=== PATIENT | male | born 1955 | race Caucasian/White ===

== ENCOUNTER → 2018-04-17 11:21 | Outpatient (CLI) | payer BC, SELFPAY ==
[2018-04-17 15:07] LABS: Anion Gap 8 (5-15); BUN 22 mg/dL (7-18); BUN/Creat Ratio 24.3 RATIO (10-20); Calcium,Total 8.8 mg/dL (8.5-10.1); Chloride 104 mmol/L (98-107); EST Glomerular Filtration Rate 91 mL/min (>60); Est Glom Filt Rate - Afr Amer 110 mL/min (>60); Glucose 88 mg/dL (74-106); Potassium 3.8 mmol/L (3.5-5.1); Sodium Level 142 mmol/L (136-145)
== END ==
PROVIDERS: Family Provider Family Medicine; PCP Family Medicine; Visit Provider Family Medicine
DX: I10 Essential (primary) hypertension (principal); I48.91 Unspecified atrial fibrillation
CPT/HCPCS: 36415; 80048

== ENCOUNTER → 2018-06-05 08:54 | Outpatient (CLI) | payer BC, SELFPAY ==
[2018-06-05 10:13] LABS: Anion Gap 6 (5-15); BUN 19 mg/dL (7-18); BUN/Creat Ratio 22.6 RATIO (10-20); Calcium,Total 9.1 mg/dL (8.5-10.1); Chloride 104 mmol/L (98-107); Creatinine, Serum 0.84 mg/dL (0.70-1.30); EST Glomerular Filtration Rate 99 mL/min (>60); Est Glom Filt Rate - Afr Amer 120 mL/min (>60); Glucose 97 mg/dL (74-106); Magnesium 2.3 mg/dL (1.6-2.6); Potassium 3.9 mmol/L (3.5-5.1); Sodium Level 140 mmol/L (136-145)
== END ==
PROVIDERS: Family Provider Family Medicine; PCP Family Medicine; Visit Provider Family Medicine
DX: I48.91 Unspecified atrial fibrillation (principal)
CPT/HCPCS: 36415; 80048; 83735; 93005

== ENCOUNTER → 2018-10-16 10:02 | Outpatient (CLI) | payer BC, SELFPAY ==
[2017-09-20 14:21] VITALS: BMI 33.5
[2018-10-16 12:48] LABS: Anion Gap 8 (5-15); BUN 20 mg/dL (7-18); BUN/Creat Ratio 25.9 RATIO (10-20); Calcium,Total 8.6 mg/dL (8.5-10.1); Chloride 105 mmol/L (98-107); Cholesterol 200 mg/dL (200); Creatinine, Serum 0.77 mg/dL (0.70-1.30); EST Glomerular Filtration Rate 109 mL/min (>60); Est Glom Filt Rate - Afr Amer 132 mL/min (>60); Glucose 85 mg/dL (74-106); High Density Lipoprotein 46 mg/dL; PSA,Total - Annual Screen 0.36 ng/mL (0.00-4.00); Potassium 3.8 mmol/L (3.5-5.1); Sodium Level 140 mmol/L (136-145); Triglycerides 79 mg/dL; Very Low Density Lipoprotein 16 mg/dL (5-40)
== END ==
PROVIDERS: Family Provider Family Medicine; PCP Family Medicine; Referring Provider Family Medicine; Visit Provider Family Medicine
DX: Z00.00 Encounter for general adult medical examination without abnormal findings (principal); Z12.5 Encounter for screening for malignant neoplasm of prostate; I10 Essential (primary) hypertension
CPT/HCPCS: 36415; 80048; 80061; 84153; G0103

== ENCOUNTER → 2019-02-28 | Outpatient (CLI) | payer BC, SELFPAY ==
[2017-09-20 14:21] VITALS: BMI 33.5
--- NOTE | 2019-02-28 09:06 | EKG12_ITS ---
Test Reason : A FIB Blood Pressure : / mmHG Vent. Rate : 056 BPM Atrial Rate : 056 BPM P-R Int : 194 ms QRS Dur : 090 ms QT Int : 422 ms P-R-T Axes : 000 026 035 degrees QTc Int : 407 ms Sinus bradycardia Otherwise normal ECG Confirmed by LEONIDES CHERRY, FIDEL ([id number]), web content editor LISHA BRAVO ([id number]) on 03/03/2019 12:11:08 PM Referred By: OUT DOCTOR Confirmed By:NOAM COYLE MD
[2019-02-28 10:27] LABS: Anion Gap 7 (5-15); BUN 20 mg/dL (7-18); Calcium,Total 8.5 mg/dL (8.5-10.1); Chloride 107 mmol/L (98-107); Creatinine, Serum 0.77 mg/dL (0.70-1.30); EST Glomerular Filtration Rate 109 mL/min (>60); Est Glom Filt Rate - Afr Amer 132 mL/min (>60); Glucose 90 mg/dL (74-106); Magnesium 2.3 mg/dL (1.6-2.6); Sodium Level 140 mmol/L (136-145)
== END | disposition home or self-care (01) ==
LOC: MTLAB 08:41
PROVIDERS: Family Provider Family Medicine; PCP Family Medicine
DX: I48.91 Unspecified atrial fibrillation (principal)
CPT/HCPCS: 36415; 80048; 83735; 93005

== ENCOUNTER 2019-05-20 08:43 | Outpatient (RCR) | payer BC, SELFPAY ==
[2017-09-20 14:21] VITALS: BMI 33.5
--- NOTE | 2019-05-20 09:48 | EKG12_ITS ---
Test Reason : A FIB Blood Pressure : / mmHG Vent. Rate : 057 BPM Atrial Rate : 057 BPM P-R Int : 182 ms QRS Dur : 096 ms QT Int : 408 ms P-R-T Axes : 058 027 050 degrees QTc Int : 397 ms Sinus bradycardia with Premature supraventricular complexes Otherwise normal ECG Confirmed by FREDERIC CHERRY, DILSHAD ([id number]), city editor LISHA BRAVO ([id number]) on 05/21/2019 1:58:09 PM Referred By: MIAH MORENO Confirmed By:DILSHAD DE LA GARZA MD
[2019-05-20 12:12] LABS: ALB/GLOB Ratio 1.1 RATIO (0.9-2.4); AST(SGOT) 17 U/L (15-37); Alanine Aminotransfer ALT/SGPT 24 U/L (16-61); Albumin, Serum 3.6 g/dL (3.2-5.0); Alkaline Phosphatase 73 U/L (45-117); Anion Gap 7 (5-15); BUN 25 mg/dL (7-18); Calcium,Total 8.7 mg/dL (8.5-10.1); Chloride 104 mmol/L (98-107); Creatinine, Serum 0.76 mg/dL (0.70-1.30); EST Glomerular Filtration Rate 111 mL/min (>60); Est Glom Filt Rate - Afr Amer 134 mL/min (>60); Globulin 3.4 g/dL (2.2-4.2); Glucose 90 mg/dL (74-106); Magnesium 2.3 mg/dL (1.6-2.6); Sodium Level 141 mmol/L (136-145)
== END 2019-05-20 18:00 | disposition home or self-care (01) ==
LOC: LAB 08:43
PROVIDERS: Family Provider Family Medicine; PCP Family Medicine
DX: I48.91 Unspecified atrial fibrillation (principal)
CPT/HCPCS: 36415; 80053; 83735; 93005

== ENCOUNTER → 2019-08-04 11:16 | Outpatient (CLI) | payer BC, SELFPAY ==
[2017-09-20 14:21] VITALS: BMI 33.5
--- NOTE | 2019-08-04 11:37 | EKG12_ITS ---
Test Reason : AFIB Blood Pressure : / mmHG Vent. Rate : 051 BPM Atrial Rate : 051 BPM P-R Int : 200 ms QRS Dur : 096 ms QT Int : 462 ms P-R-T Axes : 070 059 062 degrees QTc Int : 425 ms Sinus bradycardia Otherwise normal ECG Confirmed by ANGELA CHERRY, LONNIE ([id number]), material expeditor LISHA BRAVO ([id number]) on 08/05/2019 9:41:21 AM Referred By: MIAH MORENO Confirmed By:LONNIE MILLER MD
== END ==
PROVIDERS: Family Provider Family Medicine; PCP Family Medicine
DX: I48.91 Unspecified atrial fibrillation (principal)
CPT/HCPCS: 93005

== ENCOUNTER → 2019-10-23 08:28 | Outpatient (CLI) | payer BC, SELFPAY ==
[2017-09-20 14:21] VITALS: BMI 33.5
--- NOTE | 2019-10-23 08:37 | EKG12_ITS ---
Test Reason : PREOP Blood Pressure : / mmHG Vent. Rate : 056 BPM Atrial Rate : 056 BPM P-R Int : 186 ms QRS Dur : 098 ms QT Int : 402 ms P-R-T Axes : 068 036 054 degrees QTc Int : 387 ms Sinus bradycardia with sinus arrhythmia Otherwise normal ECG Confirmed by LEONIDES CHERRY, FIDEL ([id number]), advertising editor LISHA BRAVO ([id number]) on 10/24/2019 1:06:26 PM Referred By: MIAH MORENO Confirmed By:NOAM COYLE MD
[2019-10-23 10:03] LABS: AST(SGOT) 17 U/L (15-37); Alanine Aminotransfer ALT/SGPT 24 U/L (16-61); Albumin, Serum 3.8 g/dL (3.2-5.0); Alkaline Phosphatase 71 U/L (45-117); Anion Gap 5 (5-15); BUN 17 mg/dL (7-18); BUN/Creat Ratio 20.2 RATIO (10-20); Calcium,Total 9.1 mg/dL (8.5-10.1); Chloride 105 mmol/L (98-107); Creatinine, Serum 0.84 mg/dL (0.70-1.30); EST Glomerular Filtration Rate 98 mL/min (>60); Est Glom Filt Rate - Afr Amer 119 mL/min (>60); Globulin 3.8 g/dL (2.2-4.2); Glucose 90 mg/dL (74-106); Magnesium 2.1 mg/dL (1.6-2.6); Potassium 3.8 mmol/L (3.5-5.1); Protein, Total 7.6 g/dL (6.4-8.2); Sodium Level 140 mmol/L (136-145)
== END ==
PROVIDERS: PCP Family Medicine
DX: I48.91 Unspecified atrial fibrillation (principal)
CPT/HCPCS: 36415; 80053; 83735; 93005

== ENCOUNTER 2019-10-27 14:40 | Emergency (ER) | payer BC, SELFPAY ==
[2017-09-20 14:21] VITALS: BMI 33.5
[2019-10-27 14:43] VITALS: BP 139/75; PULSE 62; RESP 18; TEMP 36.7; O2SAT 97; BMI 30.7
--- NOTE | 2019-10-27 14:54 | ED.DCSUM_ITS ---
History of Present Illness Chief Complaint: Laceration Informant: Patient Onset: Today Context: Sudden Onset Timing: Continuous Current Severity: Moderate Maximum Severity: Moderate Narrative: The patient is a 63-year-old male with no significant medical history the presents to the emergency department left facial laceration. Patient was cutting down a branch. He states that the branch broke and snapped back. Struck him in the side of the face. He did not lose consciousness. He denies any visual change. He denies any headache. He states he is otherwise been in his normal state of health. He is unsure of his last tetanus. He is not on anticoagulants. Prior similar symptoms: No Recent Illness/Hospitalization: No Past Medical History - Allergies and Home Meds Allergies/Adverse Reactions: Allergies lisinopril Allergy (Verified 10/27/19 14:42) Unknown losartan potassium [From Cozaar] Allergy (Verified 10/27/19 14:42) Unknown acetaminophen [From Percocet] Adverse Reaction (Verified 10/27/19 14:42) Other oxycodone [From Percocet] Adverse Reaction (Verified 10/27/19 14:42) Other Primary Care Physician: Carol Ann Roberts MD [Primary Care Provider] - Prior records reviewed: Yes Past Medical History: - - Hypertension Surgical History: noncontributory Smoking Status: Never smoker Review of Systems General: Denies: Chills, Fever, Sweats Eyes: Denies: Visual changes - bilaterally, Diplopia ENT: Denies: Rhinorrhea, Sore throat Cardiovascular: Denies: Chest pain, Palpitations Respiratory: Denies: Dyspnea, Cough, Dyspnea on exertion Gastrointestinal: Denies: Abdominal pain, Nausea, Vomiting, Diarrhea, Melena, Hematochezia Genitourinary: Denies: Dysuria, Hematuria, Frequency Musculoskeletal: Denies: Back pain, Extremity Pain Skin: Denies: Rash, Wounds Neurological: Denies: Headache, Weakness, Numbness Physical Exam Vital Signs/Narrative: Vital Signs Temp Pulse Resp BP Pulse Ox 10/27/19 14:43 98.1 F 62 18 139/75 H 97 Inital Vital Signs reviewed: Yes General: Well nourished, Well developed, No Acute Distress Head: Normocephalic, Trauma - Patient has a 1 cm full-thickness laceration in the left presybeterian area. He has a 5 cm L-shaped complex laceration of the face. There is minimal active bleeding. Eyes: Perrl, EOMI ENT: Moist mucous membranes, No rhinorrhea Neck: Supple, Nontender Cardiovascular: Regular rate, Regular rhythm, No murmurs Respiratory: No distress, CTA bilaterally, Chest nontender Abdomen: Soft, Nontender, Nondistended, Normal bowel sounds Back: Nontender, Normal Inspection Extremities: Nontender, No edema Skin: Normal color, No rash Neurological: Alert, Oriented x3, Cranial nerves II-XII grossly intact, Normal Strength, Normal Sensation Psychological: Normal affect, Normal Mood Diagnostic/Tx/Re-eval Clinical Impression(s) from Imaging Studies Brain CT 10/27/19 15:00 IMPRESSION: Pansinusitis. Small amount of subarachnoid hemorrhage within the left sylvian fissure. Left frontal scalp hematoma. N.B. : The above information has been verbally conveyed by Juan Antonio Campbell to Irving Ramirez MD, on 10/27/2019 15:54:34 (ET). Electronically Signed: Juan Antonio Campbell, at 15:56 EDT , Service support , - Medical Decision Making The patient presents with facial injury. He was struck in the face by a branch but did not lose consciousness. However, the patient is on anticoagulants. Noncontrast head CT was obtained which showed a small subarachnoid hemorrhage. Because of this, the patient is going require transfer to a higher level of care. The patient preferred [facility]. He was discussed with the transfer line and with Dr. Fishman, and was accepted. I would not delay his transfer to repair his laceration. His tetanus is updated. He is given Ancef. Sterile wet gauze was used to cover his laceration. He is placed in a c-collar and will be transferred for definitive treatment of his subarachnoid hemorrhage. Impression 1. Subarachnoid hemorrhage status post head injury 2. Complex facial laceration ED Disposition - Plan for ED Patient: Referrals: Carol Ann Roberts MD [Primary Care Provider] -
--- NOTE | 2019-10-27 15:00 | CT_ITS ---
STUDY: CT BRAIN WITHOUT CONTRAST REASON FOR EXAM: Male, 63 years old. TRAUMA/LAC TO LEFT EYE/GANDHI ON COUMADIN RADIATION DOSAGE (If Supplied By Facility): CTDIvol = ( 44.99 ) mGy, DLP = ( 829.85 ) mGycm TECHNIQUE: Transaxial CT imaging of the brain was performed without administration of intravenous contrast material. Individualized dose optimization techniques were used for this CT. COMPARISON: No relevant priors. FINDINGS: Normal soft tissue structures. Skull hematoma overlying the left orbital and left frontal bone. There is mild cerebral atrophy with widening of the extra-axial spaces and ventricular dilatation. Normal white matter tracts of the cerebral hemispheres. Normal basal ganglia and thalami. Normal brainstem. Normal cerebellum. Small amount of subarachnoid bleed is seen within the left sylvian fissure. No surrounding edema is seen. There are no findings of an acute ischemic infarction. Atherosclerotic calcification of the cavernous portions of the internal carotid arteries bilaterally. There is partial opacification of the left maxillary sinus. Small amount of increased density is seen in the left frontal sinus. This may represent inspissated mucus. Opacification of the ethmoid sinuses. Mucosal thickening of the right maxillary sinus. CT/Brain/Head without Contrast IMPRESSION: Pansinusitis. Small amount of subarachnoid hemorrhage within the left sylvian fissure. Left frontal scalp hematoma. N.B. : The above information has been verbally conveyed by Juan Antonio Campbell to Irving Ramirez MD, on 10/27/2019 15:54:34 (ET). Electronically Signed: Juan Antonio Campbell, at 15:56 EDT , Service support ,
[2019-10-27] MEDS: Diphth,Pertuss(Acell),Tet Vac 0.5 ML Vial IM (15:31)
[2019-10-27] MEDS: Lidocaine/Epi/Tetracaine 50 ML 1 APPLIC TOPICAL (15:32)
[2019-10-27] MEDS: 0.9% Normal Saline 1,000 ML 150 ML IV (16:02)
[2019-10-27 16:05] LABS: Absolute Lymphocyte Count 0.79 X10^3/uL (0.83-4.51); Absolute Neutrophil Count 5.6 X10^3/uL (2.0-7.7); Basophil# 0.06 X10^3/uL; Basophil% 0.8 % (0-1); Eosinophil# 0.25 X10^3/uL; Eosinophils% 3.5 % (0-5); Hematocrit 37.2 % (40-54); Hemoglobin 12.5 g/dL (13.0-16.5); Lymphocyte # 0.79 X10^3/ul (4.0); Lymphocyte % 10.9 % (19-41); Mean Corp Hgb Conc 33.6 g/dL (32-36); Mean Corpuscular Hgb 28.7 pg (27.0-32.0); Mean Corpuscular Volume 85.5 fL (80-94); Mean Platelet Vol. 9.6 fl (6.2-12.0); Monocyte# 0.49 X10^3/uL; Monocyte% 6.8 % (0-10); NRBC Flagged by Analyzer 0 % (0-5); Neutrophil # 5.61 X10^3/uL (2.7-7.7); Neutrophil % 77.7 % (47-70); Platelet Count 164 K/mm3 (150-450); RBC Distribution Width CV 13.1 % (11.6-14.6); RBC Distribution Width SD 40.5 fl (35.1-43.9); Red Blood Count 4.35 M/mm3 (4.6-6.2); White Blood Count 7.2 K/mm3 (4.4-11.0)
[2019-10-27 16:18] LABS: International Normalized Ratio 1.9; Prothrombin Time (Protime)PT. 21.3 SECONDS (11.7-14.9)
[2019-10-27] MEDS: Cefazolin 1 GM/50 ML BAG IV (16:18)
[2019-10-27 16:22] VITALS: BP 142/85; PULSE 66; RESP 16; O2SAT 100
[2019-10-27 16:22] LABS: Anion Gap 3 (5-15); BUN 18 mg/dL (7-18); BUN/Creat Ratio 22.3 RATIO (10-20); Calcium,Total 8.6 mg/dL (8.5-10.1); Chloride 106 mmol/L (98-107); Creatinine, Serum 0.81 mg/dL (0.70-1.30); EST Glomerular Filtration Rate 103 mL/min (>60); Est Glom Filt Rate - Afr Amer 125 mL/min (>60); Estimated Creatinine Clearance 111.35 ml/min; Glucose 103 mg/dL (74-106); Potassium 3.4 mmol/L (3.5-5.1); Sodium Level 139 mmol/L (136-145)
== END 2019-10-27 16:48 | disposition short-term general hospital (02) ==
LOC: ED 15:09
PROVIDERS: Emergency Provider Emergency Medicine; PCP Family Medicine
DX: S06.6X0A Traumatic subarachnoid hemorrhage without loss of consciousness, initial encounter (principal); S01.81XA Laceration without foreign body of other part of head, initial encounter; I10 Essential (primary) hypertension; W22.8XXA Striking against or struck by other objects, initial encounter; Z79.01 Long term (current) use of anticoagulants
CPT/HCPCS: 70450; 80048; 85025; 85610; 90715; 96365; 99285; J7030; A4216

== ENCOUNTER → 2020-02-09 08:29 | Outpatient (CLI) | payer BC, SELFPAY ==
--- NOTE | 2020-02-09 08:55 | EKG12_ITS ---
Test Reason : AFIB Blood Pressure : / mmHG Vent. Rate : 059 BPM Atrial Rate : 059 BPM P-R Int : 186 ms QRS Dur : 092 ms QT Int : 408 ms P-R-T Axes : 000 021 037 degrees QTc Int : 403 ms Sinus bradycardia Otherwise normal ECG Confirmed by ANGELA CHERRY, LONNIE ([id number]), medical editor HETAL KEE ([id number]) on 02/11/2020 12:44:30 PM Referred By: MIAH GILLIAM Confirmed By:LONNIE MILLER MD
[2020-02-09 10:20] LABS: ALB/GLOB Ratio 0.9 RATIO (0.9-2.4); AST(SGOT) 17 U/L (15-37); Alanine Aminotransfer ALT/SGPT 24 U/L (16-61); Albumin, Serum 3.6 g/dL (3.2-5.0); Alkaline Phosphatase 68 U/L (45-117); Anion Gap 5 (5-15); BUN 23 mg/dL (7-18); BUN/Creat Ratio 30.1 RATIO (10-20); Calcium,Total 8.9 mg/dL (8.5-10.1); Chloride 103 mmol/L (98-107); Creatinine, Serum 0.76 mg/dL (0.70-1.30); EST Glomerular Filtration Rate 110 mL/min (>60); Est Glom Filt Rate - Afr Amer 133 mL/min (>60); Globulin 4.1 g/dL (2.2-4.2); Glucose 97 mg/dL (74-106); Magnesium 2.2 mg/dL (1.6-2.6); Potassium 3.9 mmol/L (3.5-5.1); Protein, Total 7.7 g/dL (6.4-8.2); Sodium Level 135 mmol/L (136-145)
== END ==
PROVIDERS: PCP Family Medicine
DX: I48.91 Unspecified atrial fibrillation (principal)
CPT/HCPCS: 36415; 80053; 83735; 93005

== ENCOUNTER 2020-05-12 08:45 | Outpatient (RCR) | payer BC, SELFPAY ==
[2020-05-05 09:14] VITALS: BP 136/89; PULSE 59; RESP 18; TEMP 36.4; BMI 30.7
--- NOTE | 2020-05-05 10:10 | HP.PCM_ITS ---
(1) Atrial fibrillation Status: Acute Current Visit: Yes Code(s): I48.91 - Unspecified atrial f ibrillation (2) Psoriasis (a type of skin inflammation) Status: Acute Current Visit: Yes Code(s): L40.9 - Psoriasis, unspecified (3) Traumatic open wound of right lower leg with delayed healing Status: Acute Current Visit: Yes Code(s): S81.801D - Unspecified open wound, right lower leg, subsequent encounter (4) Nonhealing nonsurgical wound with fat layer exposed Status: Acute Current Visit: Yes Code(s): T14.8XXA - Other injury of unspecified body region, initial encounter History of Present Illness Date of Service: 05/05/20 Chief Complaint: Follow-up right manley traumatic wound History of Wound: 64-year-old white male with history of psoriasis on both shins hit his right leg against a elevator shaft a month apart in March and developed large deep open wounds nonhealing. Patient was seen by his primary doctor and was put on doxycycline and given Silvadene cream for care. Past Medical History Past Medical History: Nonhealing nonsurgical traumatic wound right lower manley Surgical History: noncontributory Allergies/Adverse Reactions: Allergies lisinopril Allergy (Verified 10/27/19 14:42) Unknown losartan potassium [From Cozaar] Allergy (Verified 10/27/19 14:42) Unknown acetaminophen [From Percocet] Adverse Reaction (Verified 10/27/19 14:42) Other oxycodone [From Percocet] Adverse Reaction (Verified 10/27/19 14:42) Other Home Medications: Ambulatory Orders Medication Instructions Recorded Albuterol Inhaler [Ventolin Hfa] 1 - 2 puff INHALATION Q4H PRN PRN 09/11/15 #1 inhaler Amlodipine [Norvasc] 10 mg PO DAILY 09/11/15 Losartan/Hydrochlorothiazide 1 tab PO DAILY 09/11/15 [Hyzaar 100-12.5 Tablet] Metoprolol Tartrate [Lopressor 75 mg PO DAILY 09/11/15 (Beta Shanel)] Warfarin Sodium [Coumadin] 11 mg PO DAILY 09/11/15 Dofetilide 500 mcg PO BID 10/27/19 Lives: Spouse/ Significant Other Smoking Status: Never smoker Tobacco Use: Non-smoker Alcohol: None Drugs: None Review of Systems Constitutional: Denies: Chills, Fever Eyes: Denies: Blurred vision, Drainage, Pain HEENT: Denies: Difficulty Hearing, Difficulty Swallowing, Sore Throat, Visual Changes Cardiovascular: Denies: Chest Pain, Palpitations, Syncope Respiratory: Denies: Cough, Shortness of Breath Gastrointestinal: Denies: Abdominal Pain, Nausea, Vomiting Genitourinary: Denies: Dysuria, Frequency Musculoskeletal: Denies: Joint Pain, Muscle pain Skin: Reports: Wounds - Right manley for over a month traumatic hit a elevator shaft. Denies: Jaundice, Rash Neurological: Denies: Balance problems, Change in Speech, Difficulty swallowing, Focal weakness Psychiatric: Denies: Anxiety, Depression Endocrine: Denies: Change in Body Habitus Hematologic/ Lymphatic: Denies: Adenopathy - Physical Exam Vital Signs Temp Pulse Resp BP 97.6 F L 59 L 18 136/89 H 05/05/20 09:14 05/05/20 09:14 05/05/20 09:14 05/05/20 09:14 General: Oriented x3, Cooperative, Well developed HEENT: Atraumatic, PERRLA Oral: Moist Mucosa Neck: Supple, No JVD Lungs: Clear to auscultation, Normal air movement Cardiovascular: Regular rate, Regular Rhythm Abdomen: Bowel Sounds Present, Soft, Non Tender, No Hepato-splenomegaly Extremities: No clubbing, No edema Skin: Ulcer/ Wound - Traumatic nonhealing nonsurgical wound of the right manley multiple areas clustered wound Wound Measurements and Assessment WC - Nurse 1 - General Ulcer Measurement Start: 05/05/20 09:13 Freq: Status: Active Protocol: Activity Type Activity Date Activity User E-Sign Co-Sign Detail Recorded Client Recorded Date Recorded By Document 05/05/20 09:14 CT [id number] 05/05/20 09:41 MT Document 05/05/20 09:42 CT [id number] 05/05/20 09:43 MT 05/05/20 05/05/20 09:14 09:42 Wound Center Nurse 1 [Ulcer Assessment] #2 RIGHT MANLEY SUPERIOR CLUSTER -Current Size (cm) - Length 4.5 -Current Size (cm) - Width 3.3 -Current Size (cm) - Depth 0.3 -Total Square Cm 14.85 -Exudate Amt Small -Exudate Type Yellow/Green -Wound Margin Fibrotic Scar, Thickened Scar -Granulation Amt Medium (34-66%) -Granulation Quality Pale,[employer] [facility] [employer] -Necrosis Amt Medium (34-66%) -Necrotic Tissue Type Adherent Slough -Texture ([place]-wound Skin Appearance) Assessed -Moisture ([place]-wound Skin Appearance Assessed ) -Color ([place]-wound Skin Appearance) Assessed -Temperature ([place]-wound Skin No Abnormality Appearance) (Pt Warm) -Tenderness on Palpation ([place]-wound No Skin Appearance) -Ulcer Cleansing Rinsed/ Irrigated with Saline -Foul Odor after Cleansing No -Anesthetic Used 4% Lidocaine Solution #1 RIGHT MANLEY INFERIOR -Current Size (cm) - Length 2.5 -Current Size (cm) - Width 1.5 -Current Size (cm) - Depth 0.4 -Total Square Cm 3.75 -Photo Taken Yes -Exudate Amt Small -Exudate Type Yellow/Green -Wound Margin Fibrotic Scar, Thickened Scar -Granulation Amt Medium (34-66%) -Granulation Quality Pale,[employer] [facility] [employer] [facility] -Necrosis Amt Large (67-100%) -Necrotic Tissue Type Adherent Slough -Texture ([place]-wound Skin Appearance) Assessed -Moisture ([place]-wound Skin Appearance Assessed ) -Color ([place]-wound Skin Appearance) Assessed -Temperature ([place]-wound Skin No Abnormality Appearance) (Pt Warm) -Tenderness on Palpation ([place]-wound No Skin Appearance) -Ulcer Cleansing Rinsed/ Irrigated with Saline -Foul Odor after Cleansing No -Anesthetic Used 4% Lidocaine Solution [Edema Assessment] -Right Calf (cm) 40.5 -Right Ankle (cm) 23.5 -Left Calf (cm) 39.5 -Left Ankle (cm) 23.5 WC - Nurse 2 - General Ulcer CM Notes Start: 05/05/20 09:13 Freq: Status: Active Protocol: Activity Type Activity Date Activity User E-Sign Co-Sign Detail Recorded Client Recorded Date Recorded By Document 05/05/20 09:58 MW [id number] 05/05/20 10:07 MW 05/05/20 09:58 Wound Center Nurse 2 [Procedure/Treatment] #2 RIGHT MANLEY SUPERIOR CLUSTER -Time 09:59 -Correct Patient Yes -Correct Side, Site, Position Yes -Correct Procedure Yes -Procedure Performed Yes -Type of Procedure Debridement -Clinical Debridement Subcutaneous -Tissue Removed Subcutaneous -Post Debridement (cm) - Length 4.0 -Post Debridement (cm) - Width 3.8 -Post Debridement (cm) - Depth 0.3 -Total Square (Post) (cm) 15.20 -Area of Debridement (cm) - Length 4.0 -Area of Debridement (cm) - Width 3.8 -Total Square (Area) (cm) 15.20 -Tunneling No -Undermining/Tunneling No -Circular Undermining No -Wound/Ulcer Outcome Not Healed -Ulcer Cleansing Rinsed/ Irrigated with Saline -Foul Odor after Cleansing No -Bioengineered Tissue No -Bleeding Controlled with Pressure -Offloading No -Treatment Response Procedure Tolerated Well -Debridement - Subq, 1st 20sq cm Yes #1 RIGHT MANLEY INFERIOR -Time 10:00 -Correct Patient Yes -Correct Side, Site, Position Yes -Correct Procedure Yes -Procedure Performed Yes -Type of Procedure Debridement -Clinical Debridement Subcutaneous -Tissue Removed Subcutaneous -Post Debridement (cm) - Length 3.0 -Post Debridement (cm) - Width 1.6 -Post Debridement (cm) - Depth 0.7 -Total Square (Post) (cm) 4.80 -Area of Debridement (cm) - Length 3.0 -Area of Debridement (cm) - Width 1.9 -Total Square (Area) (cm) 5.70 -Tunneling No -Undermining/Tunneling No -Undermining/Tunneling Starts (O' 3 clock) -Undermining/Tunneling Ends (O'clock) 4 -Maximum Distance (cm) 0.4 -Circular Undermining No -Wound/Ulcer Outcome Not Healed -Ulcer Cleansing Rinsed/ Irrigated with Saline -Foul Odor after Cleansing No -Bioengineered Tissue No -Bleeding Controlled with Pressure -Offloading No -Treatment Response Procedure Tolerated Well -Debridement - Subq, 1st 20sq cm Yes [See Physician Procedure note for Specifics] Pain Scale: 0-10 Numeric [Pain] -Is Patient Pain Free? Yes Musculoskeletal: No Tenderness to Palpation of Joints or Extremities Lymphatic: No Cervical, Supraclavicular, or Inguinal Adenopathy Neurological: Cranial nerves II-XII grossly intact, Neuro grossly intact Psych/Mental Status: Normal Affect, Appropriate Debridement Note Post-Debridement Measurements/Treatment WC - Nurse 2 - General Ulcer CM Notes Start: 05/05/20 09:13 Freq: Status: Active Protocol: Activity Type Activity Date Activity User E-Sign Co-Sign Detail Recorded Client Recorded Date Recorded By Document 05/05/20 09:58 MW [id number] 05/05/20 10:07 MW 05/05/20 09:58 Wound Center Nurse 2 #2 RIGHT MANLEY SUPERIOR CLUSTER -Time 09:59 -Correct Patient Yes -Correct Side, Site, Position Yes -Correct Procedure Yes -Procedure Performed Yes -Type of Procedure Debridement -Clinical Debridement Subcutaneous -Tissue Removed Subcutaneous -Post Debridement (cm) - Length 4.0 -Post Debridement (cm) - Width 3.8 -Post Debridement (cm) - Depth 0.3 -Total Square (Post) (cm) 15.20 -Area of Debridement (cm) - Length 4.0 -Area of Debridement (cm) - Width 3.8 -Total Square (Area) (cm) 15.20 -Tunneling No -Undermining/Tunneling No -Circular Undermining No -Wound/Ulcer Outcome Not Healed -Ulcer Cleansing Rinsed/ Irrigated with Saline -Foul Odor after Cleansing No -Bioengineered Tissue No -Bleeding Controlled with Pressure -Offloading No -Treatment Response Procedure Tolerated Well -Debridement - Subq, 1st 20sq cm Yes #1 RIGHT MANLEY INFERIOR -Time 10:00 -Correct Patient Yes -Correct Side, Site, Position Yes -Correct Procedure Yes -Procedure Performed Yes -Type of Procedure Debridement -Clinical Debridement Subcutaneous -Tissue Removed Subcutaneous -Post Debridement (cm) - Length 3.0 -Post Debridement (cm) - Width 1.6 -Post Debridement (cm) - Depth 0.7 -Total Square (Post) (cm) 4.80 -Area of Debridement (cm) - Length 3.0 -Area of Debridement (cm) - Width 1.9 -Total Square (Area) (cm) 5.70 -Tunneling No -Undermining/Tunneling No -Undermining/Tunneling Starts (O'clock 3 ) -Undermining/Tunneling Ends (O'clock) 4 -Maximum Distance (cm) 0.4 -Circular Undermining No -Wound/Ulcer Outcome Not Healed -Ulcer Cleansing Rinsed/ Irrigated with Saline -Foul Odor after Cleansing No -Bioengineered Tissue No -Bleeding Controlled with Pressure -Offloading No -Treatment Response Procedure Tolerated Well -Debridement - Subq, 1st 20sq cm Yes Pain Scale: 0-10 Numeric Is Patient Pain Free? Yes Wound debrided: Right manley superior cluster Type of Debridement: Excisional debridement Anesthesia Used: 5% Lidocaine Gel Depth: Down to and including healthy tissue, in the subcutaneous layer Percentage of wound debrided: 100 Instrument Used: 5mm curette Tissue Removed: Devitalized tissue fat fibrin Severity: Fat Layer Exposed Amount of bleeding with debridement: Mild Bleeding Controlled with: Compression and gauze Patient tolerated procedure well - Additional Wound Wound debrided: Inferior wound manley Laterality: Right Type of Debridement: Excisional debridement Anesthesia Used: 5% Lidocaine Gel Depth: Down to and including healthy tissue, in the subcutaneous layer Percentage of wound debrided: 100 Instrument Used: 5mm curette Tissue Removed: Fat fibrin devitalized tissue Amount of bleeding with debridement: Mild Bleeding Controlled with: Compression and gauze Patient tolerated procedure: Patient tolerated procedure well Assessment/Plan Active Problems (Last Updated 09/20/17 @ 14:24 by Sue Adkins) Atrial fibrillation (Acute) Psoriasis (a type of skin inflammation) (Acute) Traumatic open wound of right lower leg with delayed healing (Acute) Nonhealing nonsurgical wound with fat layer exposed (Acute) Assessment: Atrial fib. Long-term use of Coumadin. Nonhealing nonsurgical cluster wound right manley. Chronic wound right lower manley Plan: Wash leg with Hibiclens apply Fibracol to wound base cover with Adaptic then gauze. Double layer Tubigrip daily. Follow-up in 1 week
[2020-05-12 09:14] VITALS: BP 131/76; PULSE 53; RESP 18; TEMP 36.1; BMI 30.7
--- NOTE | 2020-05-12 09:44 | PN.PCM_ITS ---
(1) Atrial fibrillation Status: Acute Current Visit: Yes Code(s): I48.91 - Unspecified atrial f ibrillation (2) Psoriasis (a type of skin inflammation) Status: Acute Current Visit: Yes Code(s): L40.9 - Psoriasis, unspecified (3) Traumatic open wound of right lower leg with delayed healing Status: Acute Current Visit: Yes Code(s): S81.801D - Unspecified open wound, right lower leg, subsequent encounter (4) Nonhealing nonsurgical wound with fat layer exposed Status: Acute Current Visit: Yes Code(s): T14.8XXA - Other injury of unspecified body region, initial encounter Type of Wound Date of Service: 05/12/20 Chief Complaint: Follow-up right manley traumatic wound History of Wound: 64-year-old white male with history of psoriasis on both shins hit his right leg against a elevator shaft a month prior to his arrival here the first part of March and developed large deep open wounds nonhealing. Patient was seen by his primary doctor and was put on doxycycline and given Silvadene cream for care. Progress of Wound: A chronic greater than 30-day old wound from trauma to the right manley superior wound shows tendon inferior wound has some skin buds growing the wound is getting smaller patient has been taking doxycycline will finish that but also obtained some x-ray ordered and CBC with differential and a new set of wound cultures to make sure that there is nothing growing in her manley patient still denies any pain in that area. We will continue the Fibracol that seems to be healing well. - Physical Exam Vital Signs Temp Pulse Resp BP 97 F L 53 L 18 131/76 H 05/12/20 09:14 05/12/20 09:14 05/12/20 09:14 05/12/20 09:14 General: Oriented x3, Cooperative, Well developed HEENT: Atraumatic, PERRLA Oral: Moist Mucosa Neck: Supple, No JVD Lungs: Clear to auscultation, Normal air movement Cardiovascular: Regular rate, Regular Rhythm Abdomen: Bowel Sounds Present, Soft, Non Tender, No Hepato-splenomegaly Extremities: No clubbing, No edema Skin: Ulcer/ Wound - Manley cluster inferior and superior wound from trauma Wound Measurements and Assessment WC - Nurse 1 - General Ulcer Measurement Start: 05/05/20 09:13 Freq: Status: Active Protocol: Activity Type Activity Date Activity User E-Sign Co-Sign Detail Recorded Client Recorded Date Recorded By Document 05/12/20 09:14 RB [id number] 05/12/20 09:18 RB 05/12/20 09:14 Wound Center Nurse 1 [Ulcer Assessment] #2 RIGHT MANLEY SUPERIOR CLUSTER -Combined with other wound No -Current Size (cm) - Length 4.5 -Current Size (cm) - Width 2.5 -Current Size (cm) - Depth 0.2 -Total Square Cm 11.25 -Tunneling No -Undermining/Tunneling No -Circular Undermining No -Exudate Amt Medium -Exudate Type Serosanguineous -Wound Margin Thickened & Rolled Under -Granulation Amt Medium (34-66%) -Granulation Quality [place] -Slough/Fibrin Yes -Necrosis Amt Small (1-33%) -Necrotic Tissue Type Adherent Slough -Structure Exposed N/A -Texture ([place]-wound Skin Appearance) Assessed, Scarring -Moisture ([place]-wound Skin Appearance Assessed ) -Color ([place]-wound Skin Appearance) Assessed, Hemosiderin Staining -Temperature ([place]-wound Skin No Abnormality Appearance) (Pt Warm) -Tenderness on Palpation ([place]-wound No Skin Appearance) -Ulcer Cleansing Wound Cleanser -Foul Odor after Cleansing No -Anesthetic Used 4% Lidocaine Solution #1 RIGHT MANLEY INFERIOR -Combined with other wound No -Current Size (cm) - Length 3 -Current Size (cm) - Width 1 -Current Size (cm) - Depth 0.2 -Total Square Cm 3 -Tunneling No -Undermining/Tunneling No -Circular Undermining No -Exudate Amt Medium -Exudate Type Serosanguineous -Wound Margin Thickened & Rolled Under -Granulation Amt Medium (34-66%) -Granulation Quality [place] -Slough/Fibrin Yes -Necrosis Amt Small (1-33%) -Necrotic Tissue Type Adherent Slough -Structure Exposed N/A -Texture ([place]-wound Skin Appearance) Assessed, Scarring -Moisture ([place]-wound Skin Appearance Assessed ) -Color ([place]-wound Skin Appearance) Assessed, Hemosiderin Staining -Temperature ([place]-wound Skin No Abnormality Appearance) (Pt Warm) -Tenderness on Palpation ([place]-wound No Skin Appearance) -Ulcer Cleansing Wound Cleanser -Foul Odor after Cleansing No -Anesthetic Used 4% Lidocaine Solution [Edema Assessment] -Lower Limb Edema Present Yes -Right Calf (cm) 41.5 -Right Ankle (cm) 23.8 Musculoskeletal: No Tenderness to Palpation of Joints or Extremities Lymphatic: No Cervical, Supraclavicular, or Inguinal Adenopathy Neurological: Cranial nerves II-XII grossly intact, Neuro grossly intact Psych/Mental Status: Normal Affect, Appropriate Debridement Note Post-Debridement Measurements/Treatment WC - Nurse 2 - General Ulcer CM Notes Start: 05/05/20 09:13 Freq: Status: Active Protocol: Activity Type Activity Date Activity User E-Sign Co-Sign Detail Recorded Client Recorded Date Recorded By Document 05/05/20 09:58 MW [id number] 05/05/20 10:07 MW 05/05/20 09:58 Wound Center Nurse 2 #2 RIGHT MANLEY SUPERIOR CLUSTER -Time 09:59 -Correct Patient Yes -Correct Side, Site, Position Yes -Correct Procedure Yes -Procedure Performed Yes -Type of Procedure Debridement -Clinical Debridement Subcutaneous -Tissue Removed Subcutaneous -Post Debridement (cm) - Length 4.0 -Post Debridement (cm) - Width 3.8 -Post Debridement (cm) - Depth 0.3 -Total Square (Post) (cm) 15.20 -Area of Debridement (cm) - Length 4.0 -Area of Debridement (cm) - Width 3.8 -Total Square (Area) (cm) 15.20 -Tunneling No -Undermining/Tunneling No -Circular Undermining No -Wound/Ulcer Outcome Not Healed -Ulcer Cleansing Rinsed/ Irrigated with Saline -Foul Odor after Cleansing No -Bioengineered Tissue No -Bleeding Controlled with Pressure -Offloading No -Treatment Response Procedure Tolerated Well -Debridement - Subq, 1st 20sq cm Yes #1 RIGHT MANLEY INFERIOR -Time 10:00 -Correct Patient Yes -Correct Side, Site, Position Yes -Correct Procedure Yes -Procedure Performed Yes -Type of Procedure Debridement -Clinical Debridement Subcutaneous -Tissue Removed Subcutaneous -Post Debridement (cm) - Length 3.0 -Post Debridement (cm) - Width 1.6 -Post Debridement (cm) - Depth 0.7 -Total Square (Post) (cm) 4.80 -Area of Debridement (cm) - Length 3.0 -Area of Debridement (cm) - Width 1.9 -Total Square (Area) (cm) 5.70 -Tunneling No -Undermining/Tunneling No -Undermining/Tunneling Starts (O'clock 3 ) -Undermining/Tunneling Ends (O'clock) 4 -Maximum Distance (cm) 0.4 -Circular Undermining No -Wound/Ulcer Outcome Not Healed -Ulcer Cleansing Rinsed/ Irrigated with Saline -Foul Odor after Cleansing No -Bioengineered Tissue No -Bleeding Controlled with Pressure -Offloading No -Treatment Response Procedure Tolerated Well -Debridement - Subq, 1st 20sq cm No Pain Scale: 0-10 Numeric Is Patient Pain Free? Yes - Nurse 3 - General Ulcer D/C NN Start: 05/05/20 09:13 Freq: Status: Active Protocol: Activity Type Activity Date Activity User E-Sign Co-Sign Detail Recorded Client Recorded Date Recorded By Document 05/05/20 10:22 [facility] [id number] 05/05/20 10:23 [facility] 05/05/20 10:22 Wound Care Nurse 3 #2 RIGHT MANLEY SUPERIOR CLUSTER -Ulcer Cleansing Rinsed/ Irrigated with Saline -Foul Odor after Cleansing No -Primary Dressing Applied Fibracol Plus 4x4,NonAdherent Contact Layer -Primary Dressing Covered/Secured with Dry Gauze & Roll Gauze, Secured with Tape,Other -Other Covering abd -Fibracol Plus 4x4 2 #1 RIGHT MANLEY INFERIOR -Ulcer Cleansing Rinsed/ Irrigated with Saline -Foul Odor after Cleansing No -Primary Dressing Applied NonAdherent Contact Layer, Other -Other Dressing fibracol -Primary Dressing Covered/Secured with Dry Gauze & Roll Gauze, Secured with Tape,Other -Other Covering abd -Fibracol Plus 4x4 0 Right -Tubular Bandage Double Layer -Size of Tubigrip Used Size E -Size E ($) 2 -Stockings Yes Treatment Response Procedure Tolerated Well Pain Scale: 0-10 Numeric Is Patient Pain Free? Yes - Visit Discharge Discharge Condition Stable Ambulatory Status Ambulatory Transportation Private Auto Wound debrided: Inferior wound Type of Debridement: Excisional debridement Anesthesia Used: 5% Lidocaine Gel Depth: Down to and including healthy tissue Percentage of wound debrided: 100 Instrument Used: 7mm curette Tissue Removed: Slough and fat Severity: Fat Layer Exposed Bleeding Controlled with: Compression and gauze Patient tolerated procedure well - Additional Wound Wound debrided: Superior wound cluster Laterality: Right Type of Debridement: Excisional debridement Anesthesia Used: 5% Lidocaine Gel Depth: Down to and including healthy tissue, in the subcutaneous layer Percentage of wound debrided: 100 Instrument Used: 7mm curette Severity: Fat Layer Exposed - Tendon exposed Amount of bleeding with debridement: Mild Bleeding Controlled with: Compression and gauze Patient tolerated procedure: Patient tolerated procedure well Assessment/Plan C with differential aerobic anaerobic wound culture obtained and will get a x- ray of his tib-fib make sure bones not involved Active Problems (Last Updated 09/20/17 @ 14:24 by Sue Adkins) Atrial fibrillation (Acute) Psoriasis (a type of skin inflammation) (Acute) Traumatic open wound of right lower leg with delayed healing (Acute) Nonhealing nonsurgical wound with fat layer exposed (Acute) Assessment: Atrial fib. Long-term use of Coumadin. Nonhealing nonsurgical cluster wound right manley. Chronic wound right lower manley Plan: Wash leg with Hibiclens apply Fibracol to wound base cover with Adaptic then gauze. Double layer Tubigrip daily. Follow-up in 1 week. Call with results as they return. Did apply for skin sub-to run through insurance
--- NOTE | 2020-05-12 10:24 | RAD_ITS ---
STUDY: X-RAY - RIGHT TIBIA AND FIBULA REASON FOR EXAM: Male, 64 years old. Wound mid manley, osteomyelitis TECHNIQUE: 3 view(s) of the tibia and fibula were obtained. COMPARISON: None. FINDINGS: Normal visualized tibia. Normal visualized fibula. The soft tissue structures are unremarkable. No subcutaneous emphysema. RAD/Tibia & Fibula 2 Views IMPRESSION: Normal x-ray examination of the tibia and fibula. Electronically Signed: Joseph Cook DO at 17:53 EDT Tel [phone], Service support ,
[2020-05-12 11:09] LABS: Absolute Lymphocyte Count 1.06 X10^3/uL (0.83-4.51); Absolute Neutrophil Count 3.9 X10^3/uL (2.0-7.7); Basophil# 0.03 X10^3/uL; Basophil% 0.5 % (0-1); Eosinophil# 0.42 X10^3/uL; Eosinophils% 7.2 % (0-5); Hematocrit 40.9 % (40-54); Hemoglobin 13.7 g/dL (13.0-16.5); Lymphocyte # 1.06 X10^3/ul (4.0); Lymphocyte % 18.1 % (19-41); Mean Corp Hgb Conc 33.5 g/dL (32-36); Mean Corpuscular Hgb 28.4 pg (27.0-32.0); Mean Corpuscular Volume 84.7 fL (80-94); Mean Platelet Vol. 9.7 fl (6.2-12.0); Monocyte# 0.47 X10^3/uL; NRBC Flagged by Analyzer 0 % (0-5); Neutrophil # 3.87 X10^3/uL (2.7-7.7); Neutrophil % 65.9 % (47-70); Platelet Count 197 K/mm3 (150-450); RBC Distribution Width CV 13.5 % (11.6-14.6); RBC Distribution Width SD 41.9 fl (35.1-43.9); Red Blood Count 4.83 M/mm3 (4.6-6.2); White Blood Count 5.9 K/mm3 (4.4-11.0)
== END 2020-05-12 23:59 ==
LOC: WC 08:45
PROVIDERS: PCP Family Medicine; Referring Provider Family Medicine; Visit Provider Nurse Practitioner
DX: L40.9 Psoriasis, unspecified (principal); S81.801A Unspecified open wound, right lower leg, initial encounter; W22.09XA Striking against other stationary object, initial encounter; Z79.899 Other long term (current) drug therapy; Z79.01 Long term (current) use of anticoagulants; I48.91 Unspecified atrial fibrillation
CPT/HCPCS: 11042; 36415; 73590; 85025; 87070; 87075; 87077; 87186; 87205; 99213; G0463

== ENCOUNTER → 2020-05-18 07:12 | Outpatient (CLI) | payer BC, SELFPAY ==
[2020-05-12 09:14] VITALS: BMI 30.7
--- NOTE | 2020-05-18 07:30 | EKG12_ITS ---
Test Reason : MEDICATION Blood Pressure : / mmHG Vent. Rate : 052 BPM Atrial Rate : 052 BPM P-R Int : 184 ms QRS Dur : 096 ms QT Int : 422 ms P-R-T Axes : 072 046 053 degrees QTc Int : 392 ms Sinus bradycardia Otherwise normal ECG Confirmed by FREDERIC CHERRY, DILSHAD ([id number]), editor in chief JAROD BEE ([id number]) on 05/19/2020 10:16:24 AM Referred By: MIAH MORENO Confirmed By:DILSHAD DE LA GARZA MD
[2020-05-18 08:19] LABS: ALB/GLOB Ratio 0.9 RATIO (0.9-2.4); AST(SGOT) 16 U/L (15-37); Alanine Aminotransfer ALT/SGPT 26 U/L (16-61); Albumin, Serum 3.6 g/dL (3.2-5.0); Alkaline Phosphatase 68 U/L (45-117); Anion Gap 3 (5-15); BUN 23 mg/dL (7-18); BUN/Creat Ratio 23.1 RATIO (10-20); Calcium,Total 9.1 mg/dL (8.5-10.1); Chloride 104 mmol/L (98-107); EST Glomerular Filtration Rate 81 mL/min (>60); Est Glom Filt Rate - Afr Amer 98 mL/min (>60); Glucose 82 mg/dL (74-106); Magnesium 2.2 mg/dL (1.6-2.6); Potassium 3.7 mmol/L (3.5-5.1); Protein, Total 7.6 g/dL (6.4-8.2); Sodium Level 136 mmol/L (136-145)
== END ==
PROVIDERS: PCP Family Medicine
DX: I48.91 Unspecified atrial fibrillation (principal)
CPT/HCPCS: 36415; 80053; 83735; 93005

== ENCOUNTER 2020-06-09 08:30 | Outpatient (RCR) | payer BC, SELFPAY ==
[2020-05-13 00:50] VITALS: BP 131/76; PULSE 53; RESP 18; TEMP 36.1
[2020-05-19 08:48] VITALS: BP 141/87; PULSE 56; RESP 18; TEMP 36.3; BMI 30.7
--- NOTE | 2020-05-19 09:36 | PN.PCM_ITS ---
(1) Psoriasis (a type of skin inflammation) Status: Acute Current Visit: Yes Code(s): L40.9 - Psoriasis, unspecified (2) Traumatic open wound of right lower leg with delayed healing Status: Acute Current Visit: Yes Code(s): S81.801D - Unspecified open wound, right lower leg, subsequent encounter (3) Non-pressure chronic ulcer right lower leg, limited to breakdown skin Status: Acute Current Visit: Yes Code(s): L97.911 - Non-pressure chronic ulcer of unspecified part of right lower leg limited to breakdown of skin Type of Wound Date of Service: 05/19/20 Chief Complaint: Follow-up right manley traumatic wound History of Wound: 64-year-old white male with history of psoriasis on both shins hit his right leg against a elevator shaft a month prior to his arrival here the first part of March and developed large deep open wounds nonhealing. Patient was seen by his primary doctor and was put on doxycycline and given Silvadene cream for care. Progress of Wound: A chronic greater than 30-day old wound from trauma to the right manley superior wound shows tendon inferior wound has some skin buds growing the wound is getting smaller patient has been taking doxycycline will finish th at but also obtained some x-ray of the tib-fib are negative. CBC with differential was within normal limits and a new set of wound cultures that did have growth that was started on Levaquin. We will continue the Fibracol that seems to be healing well. Still pending is his skin substitute - Physical Exam Vital Signs Temp Pulse Resp BP 97.4 F L 56 L 18 141/87 H 05/19/20 08:48 05/19/20 08:48 05/19/20 08:48 05/19/20 08:48 General: Oriented x3, Cooperative, Well developed HEENT: Atraumatic, PERRLA Oral: Moist Mucosa Neck: Supple, No JVD Lungs: Clear to auscultation, Normal air movement Cardiovascular: Regular rate, Regular Rhythm Abdomen: Bowel Sounds Present, Soft, Non Tender, No Hepato-splenomegaly Extremities: No clubbing, No edema, - - Right manley cluster from traumatic opening nonhealing to the right manley area Wound Measurements and Assessment WC - Nurse 1 - General Ulcer Measurement Start: 05/19/20 08:48 Freq: Status: Active Protocol: Activity Type Activity Date Activity User E-Sign Co-Sign Detail Recorded Client Recorded Date Recorded By Document 05/19/20 08:48 MS [id number] 05/19/20 09:06 MS 05/19/20 08:48 Wound Center Nurse 1 [Ulcer Assessment] #2 RIGHT MANLEY SUPERIOR CLUSTER -Combined with other wound No -Current Size (cm) - Length 6.3 -Current Size (cm) - Width 4 -Current Size (cm) - Depth 0.3 -Total Square Cm 25.2 -Photo Taken No -Epithelialization Small 1-33% -Tunneling No -Undermining/Tunneling No -Circular Undermining No -Exudate Amt Medium -Exudate Type Serosanguineous -Wound Margin Distinct, Outline Attached -Granulation Amt Small (1-33%) -Granulation Quality [place] -Slough/Fibrin Yes -Necrosis Amt Medium (34-66%) -Necrotic Tissue Type Adherent Slough -Structure Exposed N/A -Texture (S[place]my[place]-wound Skin Appearance) No Abnormality, Assessed -Moisture ([place]-wound Skin Appearance Assessed ) -Color ([place]-wound Skin Appearance) Assessed -Temperature ([place]-wound Skin No Abnormality Appearance) (Pt Warm) -Tenderness on Palpation ([place]-wound No Skin Appearance) -Ulcer Cleansing Wound Cleanser -Foul Odor after Cleansing No -Anesthetic Used 4% Lidocaine Solution #1 RIGHT MANLEY INFERIOR -Combined with other wound No -Current Size (cm) - Length 3.7 -Current Size (cm) - Width 2 -Current Size (cm) - Depth 0.3 -Total Square Cm 7.4 -Tunneling No -Undermining/Tunneling No -Circular Undermining No -Exudate Amt Medium -Exudate Type Serosanguineous -Wound Margin Distinct, Outline Attached -Granulation Amt Medium (34-66%) -Granulation Quality [place] -Slough/Fibrin Yes -Necrosis Amt Large (67-100%) -Necrotic Tissue Type Adherent Slough -Structure Exposed N/A -Texture (S[place]my[place]-wound Skin Appearance) Assessed -Moisture ([place]-wound Skin Appearance Assessed ) -Color ([place]-wound Skin Appearance) Assessed -Temperature ([place]-wound Skin No Abnormality Appearance) (Pt Warm) -Tenderness on Palpation ([place]-wound No Skin Appearance) -Ulcer Cleansing Wound Cleanser -Foul Odor after Cleansing No -Anesthetic Used 4% Lidocaine Solution [Edema Assessment] -Point of measurement (cm from the 41 medial instep) -Point of Measurement (cm from the 23.5 medial instep) WC - Nurse 2 - General Ulcer CM Notes Start: 05/19/20 08:48 Freq: Status: Active Protocol: Activity Type Activity Date Activity User E-Sign Co-Sign Detail Recorded Client Recorded Date Recorded By Document 05/19/20 09:22 MW [id number] 05/19/20 09:25 MW 05/19/20 09:22 Wound Center Nurse 2 [Procedure/Treatment] #2 RIGHT MANLEY SUPERIOR CLUSTER -Time 09:22 -Correct Patient Yes -Correct Side, Site, Position Yes -Correct Procedure Yes -Procedure Performed Yes -Type of Procedure Debridement -Clinical Debridement Subcutaneous -Tissue Removed Subcutaneous -Post Debridement (cm) - Length 5.5 -Post Debridement (cm) - Width 3.5 -Post Debridement (cm) - Depth 0.4 -Total Square (Post) (cm) 19.25 -Area of Debridement (cm) - Length 5.5 -Area of Debridement (cm) - Width 3.5 -Total Square (Area) (cm) 19.25 -Tunneling No -Undermining/Tunneling No -Circular Undermining No -Wound/Ulcer Outcome Not Healed -Ulcer Cleansing Rinsed/ Irrigated with Saline -Foul Odor after Cleansing No -Bioengineered Tissue No -Bleeding Controlled with Pressure,Silver Nitrate -Offloading No -Treatment Response Procedure Tolerated Well -Debridement - Subq, 1st 20sq cm Yes -Debridement, SubQ, ea addt'l 20sq cm 1 or part thereof #1 RIGHT MANLEY INFERIOR -Time 09:23 -Correct Patient Yes -Correct Side, Site, Position Yes -Correct Procedure Yes -Procedure Performed Yes -Type of Procedure Debridement -Clinical Debridement Subcutaneous -Tissue Removed Subcutaneous -Post Debridement (cm) - Length 2.8 -Post Debridement (cm) - Width 1.3 -Post Debridement (cm) - Depth 0.3 -Total Square (Post) (cm) 3.64 -Area of Debridement (cm) - Length 2.8 -Area of Debridement (cm) - Width 1.3 -Total Square (Area) (cm) 3.64 -Tunneling No -Undermining/Tunneling No -Circular Undermining No -Wound/Ulcer Outcome Not Healed -Ulcer Cleansing Rinsed/ Irrigated with Saline -Foul Odor after Cleansing No -Bioengineered Tissue No -Bleeding Controlled with Pressure -Offloading No -Debridement - Subq, 1st 20sq cm No [See Physician Procedure note for Specifics] Pain Scale: 0-10 Numeric [Pain] -Is Patient Pain Free? Yes Musculoskeletal: No Tenderness to Palpation of Joints or Extremities Lymphatic: No Cervical, Supraclavicular, or Inguinal Adenopathy Neurological: Cranial nerves II-XII grossly intact, Neuro grossly intact Psych/Mental Status: Normal Affect, Appropriate, Alert and oriented to time, place, person, mood and affect Debridement Note Post-Debridement Measurements/Treatment WC - Nurse 2 - General Ulcer CM Notes Start: 05/19/20 08:48 Freq: Status: Active Protocol: Activity Type Activity Date Activity User E-Sign Co-Sign Detail Recorded Client Recorded Date Recorded By Document 05/19/20 09:22 MW [id number] 05/19/20 09:25 MW 05/19/20 09:22 Wound Center Nurse 2 #2 RIGHT MANLEY SUPERIOR CLUSTER -Time 09:22 -Correct Patient Yes -Correct Side, Site, Position Yes -Correct Procedure Yes -Procedure Performed Yes -Type of Procedure Debridement -Clinical Debridement Subcutaneous -Tissue Removed Subcutaneous -Post Debridement (cm) - Length 5.5 -Post Debridement (cm) - Width 3.5 -Post Debridement (cm) - Depth 0.4 -Total Square (Post) (cm) 19.25 -Area of Debridement (cm) - Length 5.5 -Area of Debridement (cm) - Width 3.5 -Total Square (Area) (cm) 19.25 -Tunneling No -Undermining/Tunneling No -Circular Undermining No -Wound/Ulcer Outcome Not Healed -Ulcer Cleansing Rinsed/ Irrigated with Saline -Foul Odor after Cleansing No -Bioengineered Tissue No -Bleeding Controlled with Pressure,Silver Nitrate -Offloading No -Treatment Response Procedure Tolerated Well -Debridement - Subq, 1st 20sq cm Yes -Debridement, SubQ, ea addt'l 20sq cm 1 or part thereof #1 RIGHT MANLEY INFERIOR -Time 09:23 -Correct Patient Yes -Correct Side, Site, Position Yes -Correct Procedure Yes -Procedure Performed Yes -Type of Procedure Debridement -Clinical Debridement Subcutaneous -Tissue Removed Subcutaneous -Post Debridement (cm) - Length 2.8 -Post Debridement (cm) - Width 1.3 -Post Debridement (cm) - Depth 0.3 -Total Square (Post) (cm) 3.64 -Area of Debridement (cm) - Length 2.8 -Area of Debridement (cm) - Width 1.3 -Total Square (Area) (cm) 3.64 -Tunneling No -Undermining/Tunneling No -Circular Undermining No -Wound/Ulcer Outcome Not Healed -Ulcer Cleansing Rinsed/ Irrigated with Saline -Foul Odor after Cleansing No -Bioengineered Tissue No -Bleeding Controlled with Pressure -Offloading No -Debridement - Subq, 1st 20sq cm No Pain Scale: 0-10 Numeric Is Patient Pain Free? Yes Wound debrided: Right manley superior cluster Type of Debridement: Excisional debridement Anesthesia Used: 5% Lidocaine Gel Depth: Down to and including healthy tissue, in the subcutaneous layer Percentage of wound debrided: 100 Instrument Used: 7mm curette Tissue Removed: Fibrin devitalized tissue and slough Severity: Limited To Skin Breakdown Amount of bleeding with debridement: Mild Bleeding Controlled with: Pressure, Compression and gauze Patient tolerated procedure well Assessment/Plan Active Problems (Last Updated 09/20/17 @ 14:24 by Sue Adkins) Psoriasis (a type of skin inflammation) (Acute) Traumatic open wound of right lower leg with delayed healing (Acute) Non-pressure chronic ulcer right lower leg, limited to breakdown skin (Acute) Assessment: Atrial fib. Long-term use of Coumadin. Nonhealing nonsurgical cluster wound right manley. Chronic nonhealing nonpressure wound right lower manley Plan: Wash leg with Hibiclens apply Fibracol to wound base cover with Adaptic then gauze. Double layer Tubigrip daily. Follow-up in 1 week. Call with results as they return. Did apply for skin sub-to run through insurance
[2020-05-19 09:37] VITALS: BP 142/90; PULSE 50; RESP 18
[2020-05-26 09:15] VITALS: BP 137/87; PULSE 53; RESP 18; TEMP 36.6; BMI 30.7
[2020-05-26 09:42] VITALS: BP 135/80; PULSE 56; RESP 20; TEMP 36.7
--- NOTE | 2020-05-26 09:43 | PCM.WC.PN ---
(1) Psoriasis (a type of skin inflammation) Status: Acute Code(s): L40.9 - Psoriasis, unspecified (2) Traumatic open wound of right lower leg with delayed healing Status: Acute Code(s): S81.801D - Unspecified open wound, right lower leg, subsequent encounter (3) Non-pressure chronic ulcer right lower leg, limited to breakdown skin Status: Acute Code(s): L97.911 - Non-pressure chronic ulcer of unspecified part of right lower leg limited to breakdown of skin Type of Wound Date of Service: 05/26/20 Chief Complaint: Follow-up right manley traumatic wound History of Wound: 64-year-old white male with history of psoriasis on both shins hit his right leg against a elevator shaft a month prior to his arrival here the first part of March and developed large deep open wounds nonhealing. Patient was seen by his primary doctor and was put on doxycycline and given Silvadene cream for care. Progress of Wound: A chronic greater than 30-day old wound from trauma to the right manley superior wound shows tendon inferior wound has some skin buds growing the wound is getting smaller patient has been taking doxycycline will finish that but also obtained some x-ray of the tib-fib are negative. CBC with differential was within normal limits and a new set of wound cultures that did have growth that was started on Levaquin. We will continue the Fibracol that seems to be healing well. Skin substitute was denied by his insurance company. - Physical Exam Vital Signs Temp Pulse Resp BP 98 F 53 L 18 137/87 H 05/26/20 09:15 05/26/20 09:15 05/26/20 09:15 05/26/20 09:15 General: Oriented x3, Cooperative, Well developed HEENT: Atraumatic, PERRLA Oral: Moist Mucosa Neck: Supple, No JVD Lungs: Clear to auscultation, Normal air movement Cardiovascular: Regular rate, Regular Rhythm Abdomen: Bowel Sounds Present, Soft, Non Tender, No Hepato-splenomegaly Extremities: No clubbing, No edema Skin: Ulcer/ Wound - Right manley cluster superior and inferior wounds from trauma over his right psoriatic area Wound Measurements and Assessment WC - Nurse 1 - General Ulcer Measurement Start: 05/19/20 08:48 Freq: Status: Active Protocol: Activity Type Activity Date Activity User E-Sign Co-Sign Detail Recorded Client Recorded Date Recorded By Document 10/14/20 09:15 RB [id number] 05/26/20 09:17 RB 05/26/20 09:15 Wound Center Nurse 1 [Ulcer Assessment] #2 RIGHT MANLEY SUPERIOR CLUSTER -Combined with other wound No -Current Size (cm) - Length 4.2 -Current Size (cm) - Width 2.7 -Current Size (cm) - Depth 0.3 -Total Square Cm 11.34 -Tunneling No -Undermining/Tunneling No -Circular Undermining No -Exudate Amt Small -Exudate Type Serosanguineous -Wound Margin Thickened & Rolled Under -Granulation Amt Medium (34-66%) -Granulation Quality [place] -Slough/Fibrin Yes -Necrosis Amt Medium (34-66%) -Necrotic Tissue Type Adherent Slough -Structure Exposed Tendon -Texture ([place]-wound Skin Appearance) Scarring -Moisture ([place]-wound Skin Appearance Assessed ) -Color ([place]-wound Skin Appearance) Assessed -Temperature ([place]-wound Skin No Abnormality Appearance) (Pt Warm) -Tenderness on Palpation ([place]-wound No Skin Appearance) -Ulcer Cleansing Wound Cleanser -Foul Odor after Cleansing No -Anesthetic Used 4% Lidocaine Solution #1 RIGHT MANLEY INFERIOR -Current Size (cm) - Length 2.8 -Current Size (cm) - Width 1.5 -Current Size (cm) - Depth 0.4 -Total Square Cm 4.20 -Tunneling No -Undermining/Tunneling No -Circular Undermining No -Exudate Amt Small -Exudate Type Serosanguineous -Wound Margin Thickened & Rolled Under -Granulation Amt Medium (34-66%) -Granulation Quality [place] -Slough/Fibrin Yes -Necrosis Amt Small (1-33%) -Necrotic Tissue Type Adherent Slough -Structure Exposed N/A -Texture ([place]-wound Skin Appearance) Scarring -Moisture ([place]-wound Skin Appearance Assessed ) -Color ([place]-wound Skin Appearance) Assessed -Temperature ([place]-wound Skin No Abnormality Appearance) (Pt Warm) -Tenderness on Palpation ([place]-wound No Skin Appearance) -Ulcer Cleansing Wound Cleanser -Foul Odor after Cleansing No -Anesthetic Used 4% Lidocaine Solution [Edema Assessment] -Lower Limb Edema Present Yes -Right Calf (cm) 40.2 -Right Ankle (cm) 23 WC - Nurse 2 - General Ulcer CM Notes Start: 05/19/20 08:48 Freq: Status: Active Protocol: Activity Type Activity Date Activity User E-Sign Co-Sign Detail Recorded Client Recorded Date Recorded By Document 05/26/20 09:24 MW [id number] 05/26/20 09:30 MW 05/26/20 09:24 Wound Center Nurse 2 [Procedure/Treatment] #2 RIGHT MANLEY SUPERIOR CLUSTER -Time 09:26 -Correct Patient Yes -Correct Side, Site, Position Yes -Correct Procedure Yes -Procedure Performed Yes -Type of Procedure Debridement -Clinical Debridement Subcutaneous -Tissue Removed Subcutaneous -Post Debridement (cm) - Length 5.4 -Post Debridement (cm) - Width 3.5 -Post Debridement (cm) - Depth 0.4 -Total Square (Post) (cm) 18.90 -Area of Debridement (cm) - Length 5.4 -Area of Debridement (cm) - Width 3.5 -Total Square (Area) (cm) 18.90 -Tunneling No -Undermining/Tunneling No -Circular Undermining No -Wound/Ulcer Outcome Not Healed -Ulcer Cleansing Rinsed/ Irrigated with Saline -Foul Odor after Cleansing No -Bioengineered Tissue No -Bleeding Controlled with Pressure -Offloading No -Debridement - Subq, 1st 20sq cm Yes #1 RIGHT MANLEY INFERIOR -Time 09:26 -Correct Patient Yes -Correct Side, Site, Position Yes -Correct Procedure Yes -Procedure Performed Yes -Type of Procedure Debridement -Clinical Debridement Subcutaneous -Tissue Removed Subcutaneous -Post Debridement (cm) - Length 3.0 -Post Debridement (cm) - Width 1.3 -Post Debridement (cm) - Depth 0.2 -Total Square (Post) (cm) 3.90 -Area of Debridement (cm) - Length 3.0 -Area of Debridement (cm) - Width 1.3 -Total Square (Area) (cm) 3.90 -Tunneling No -Undermining/Tunneling No -Circular Undermining No -Wound/Ulcer Outcome Not Healed -Ulcer Cleansing Rinsed/ Irrigated with Saline -Foul Odor after Cleansing No -Bioengineered Tissue No -Bleeding Controlled with Pressure -Offloading No -Treatment Response Procedure Tolerated Well -Debridement - Subq, 1st 20sq cm No [See Physician Procedure note for Specifics] Pain Scale: 0-10 Numeric [Pain] -Is Patient Pain Free? Yes Musculoskeletal: No Tenderness to Palpation of Joints or Extremities Lymphatic: No Cervical, Supraclavicular, or Inguinal Adenopathy Neurological: Cranial nerves II-XII grossly intact, Neuro grossly intact Psych/Mental Status: Normal Affect, Appropriate Debridement Note Post-Debridement Measurements/Treatment WC - Nurse 2 - General Ulcer CM Notes Start: 05/19/20 08:48 Freq: Status: Active Protocol: Activity Type Activity Date Activity User E-Sign Co-Sign Detail Recorded Client Recorded Date Recorded By Document 05/19/20 09:22 MW [id number] 05/19/20 09:25 MW Document 05/26/20 09:24 MW [id number] 05/26/20 09:30 MW 05/19/20 05/26/20 09:22 09:24 Wound Center Nurse 2 #2 RIGHT MANLEY SUPERIOR CLUSTER -Time : 09:26 -Correct Patient Yes Yes -Correct Side, Site, Position Yes Yes -Correct Procedure Yes Yes -Procedure Performed Yes Yes -Type of Procedure Debridement Debridement -Clinical Debridement Subcutaneous Subcutaneous -Tissue Removed Subcutaneous Subcutaneous -Post Debridement (cm) - Length 5.5 5.4 -Post Debridement (cm) - Width 3.5 3.5 -Post Debridement (cm) - Depth 0.4 0.4 -Total Square (Post) (cm) 19.25 18.90 -Area of Debridement (cm) - Length 5.5 5.4 -Area of Debridement (cm) - Width 3.5 3.5 -Total Square (Area) (cm) 19.25 18.90 -Tunneling No No -Undermining/Tunneling No No -Circular Undermining No No -Wound/Ulcer Outcome Not Healed Not Healed -Ulcer Cleansing Rinsed/ Rinsed/ Irrigated with Irrigated with Saline Saline -Foul Odor after Cleansing No No -Bioengineered Tissue No No -Bleeding Controlled with Pressure,Silver Pressure Nitrate -Offloading No No -Treatment Response Procedure Tolerated Well -Debridement - Subq, 1st 20sq cm Yes Yes -Debridement, SubQ, ea addt'l 20sq cm 1 or part thereof #1 RIGHT MANLEY INFERIOR -Time 09: 09:26 -Correct Patient Yes Yes -Correct Side, Site, Position Yes Yes -Correct Procedure Yes Yes -Procedure Performed Yes Yes -Type of Procedure Debridement Debridement -Clinical Debridement Subcutaneous Subcutaneous -Tissue Removed Subcutaneous Subcutaneous -Post Debridement (cm) - Length 2.8 3.0 -Post Debridement (cm) - Width 1.3 1.3 -Post Debridement (cm) - Depth 0.3 0.2 -Total Square (Post) (cm) 3.64 3.90 -Area of Debridement (cm) - Length 2.8 3.0 -Area of Debridement (cm) - Width 1.3 1.3 -Total Square (Area) (cm) 3.64 3.90 -Tunneling No No -Undermining/Tunneling No No -Circular Undermining No No -Wound/Ulcer Outcome Not Healed Not Healed -Ulcer Cleansing Rinsed/ Rinsed/ Irrigated with Irrigated with Saline Saline -Foul Odor after Cleansing No No -Bioengineered Tissue No No -Bleeding Controlled with Pressure Pressure -Offloading No No -Treatment Response Procedure Tolerated Well -Debridement - Subq, 1st 20sq cm No No Pain Scale: 0-10 Numeric Is Patient Pain Free? Yes Yes - Nurse 3 - General Ulcer D/C NN Start: 05/19/20 08:48 Freq: Status: Active Protocol: Activity Type Activity Date Activity User E-Sign Co-Sign Detail Recorded Client Recorded Date Recorded By Document 05/19/20 09:37 MS [id number] 05/19/20 09:40 MS 05/19/20 09:37 Wound Care Nurse 3 #2 RIGHT MANLEY SUPERIOR CLUSTER -Primary Dressing Applied Fibracol Plus 4x4 -Primary Dressing Covered/Secured with Dry Gauze, Secured with Tape -Fibracol Plus 4x4 1 #1 RIGHT MANLEY INFERIOR -Primary Dressing Applied Fibracol Plus 4x4 -Primary Dressing Covered/Secured with Dry Gauze, Secured with Tape -Fibracol Plus 4x4 1 Vital Signs Pulse Rate (60-100 beats/min) 50 L Pulse Location Monitor Respiratory Rate (12-18 breaths/min) 18 Respiratory rate source Observation Oxygen Delivery Method Room Air Blood Pressure (90/60-120/80 mm Hg) 142/90 H Blood Pressure Mean (mm Hg) 107 Source Monitor Position Semi-Fowlers Blood Pressure Location Right Arm Pain Scale: 0-10 Numeric Is Patient Pain Free? Yes WC - Visit Discharge Discharge Condition Stable Ambulatory Status Ambulatory Transportation Private Auto Medication Reconcilliation completed & No provided to patient/care provider Clinical Summary of Care Provided Yes Wound debrided: Superior cluster Type of Debridement: Excisional debridement Anesthesia Used: 5% Lidocaine Gel Depth: to muscle Percentage of wound debrided: 100 Instrument Used: 7mm curette, #15 blade, Forceps Tissue Removed: Devitalized tissue fat and fibrin Severity: Fat Layer Exposed Amount of bleeding with debridement: Mild Bleeding Controlled with: Compression and gauze Patient tolerated procedure well - Additional Wound Wound debrided: Inferior wound Laterality: Right Type of Debridement: Excisional debridement Anesthesia Used: 5% Lidocaine Gel Depth: Down to and including healthy tissue, in the subcutaneous layer Percentage of wound debrided: 100 Instrument Used: 7mm curette, #15 blade, Forceps Tissue Removed: Fat devitalized tissue and fibrin Severity: Fat Layer Exposed Amount of bleeding with debridement: Mild Bleeding Controlled with: Compression and gauze Patient tolerated procedure: Patient tolerated procedure well Assessment/Plan Active Problems (Last Updated 09/20/17 @ 14:24 by Sue Adkins) Non-pressure chronic ulcer right lower leg, limited to breakdown skin (Acute) Assessment: Atrial fib. Long-term use of Coumadin. Nonhealing nonsurgical cluster wound right manley. Chronic nonhealing nonpressure wound right lower manley Plan: Wash leg with Hibiclens apply Fibracol to wound base cover with Adaptic then gauze. Double layer Tubigrip daily. Follow-up in 1 week. Did apply for skin sub-to run through insurance
[2020-06-02 08:58] VITALS: BP 143/78; PULSE 53; RESP 18; TEMP 36.6; BMI 30.7
--- NOTE | 2020-06-02 09:33 | PN.PCM_ITS ---
(1) Psoriasis (a type of skin inflammation) Status: Acute Code(s): L40.9 - Psoriasis, unspecified (2) Traumatic open wound of right lower leg with delayed healing Status: Acute Code(s): S81.801D - Unspecified open wound, right lower leg, subsequent encounter (3) Non-pressure chronic ulcer right lower leg, limited to breakdown skin Status: Acute Code(s): L97.911 - Non-pressure chronic ulcer of unspecified part of right lower leg limited to breakdown of skin Type of Wound Date of Service: 06/02/20 Chief Complaint: Follow-up right manley traumatic wound History of Wound: 64-year-old white male with history of psoriasis on both shins hit his right leg against a elevator shaft a month prior to his arrival here the first part of March and developed large deep open wounds nonhealing. Patient was seen by his primary doctor and was put on doxycycline and given Silvadene cream for care. Progress of Wound: A chronic greater than 30-day old wound from trauma to the right manley superior wound shows tendon inferior wound has some skin buds growing the wound is getting smaller patient has been taking doxycycline will finish that but also obtained some x-ray of the tib-fib are negative. CBC with differential was within normal limits and a new set of wound cultures that did have growth, started on Levaquin, that he has finished now. We will continue the Fibracol that seems to be healing well. Skin substitute was denied by his insurance company. - Physical Exam Vital Signs Temp Pulse Resp BP 98 F 53 L 18 143/78 H 06/02/20 08:58 06/02/20 08:58 06/02/20 08:58 06/02/20 08:58 General: Oriented x3, Cooperative, Well developed HEENT: Atraumatic, PERRLA Oral: Moist Mucosa Neck: Supple, No JVD Lungs: Clear to auscultation, Normal air movement Cardiovascular: Regular rate, Regular Rhythm Abdomen: Bowel Sounds Present, Soft, Non Tender, No Hepato-splenomegaly Extremities: No clubbing, No edema Skin: Ulcer/ Wound - Right manley traumatic wound cluster in the superior Wound Measurements and Assessment WC - Nurse 1 - General Ulcer Measurement Start: 05/19/20 08:48 Freq: Status: Active Protocol: Activity Type Activity Date Activity User E-Sign Co-Sign Detail Recorded Client Recorded Date Recorded By Document 06/02/20 08:58 RB [id number] 06/02/20 09:05 RB 06/02/20 08:58 Wound Center Nurse 1 [Ulcer Assessment] #2 RIGHT MANLEY SUPERIOR CLUSTER -Combined with other wound No -Current Size (cm) - Length 5.5 -Current Size (cm) - Width 3 -Current Size (cm) - Depth 0.4 -Total Square Cm 16.5 -Tunneling No -Undermining/Tunneling No -Circular Undermining No -Exudate Amt Small -Exudate Type Serosanguineous -Wound Margin Thickened & Rolled Under -Granulation Amt Medium (34-66%) -Granulation Quality [place] -Slough/Fibrin Yes -Necrosis Amt Small (1-33%) -Necrotic Tissue Type Adherent Slough -Structure Exposed N/A -Texture ([place]-wound Skin Appearance) Assessed, Scarring -Moisture ([place]-wound Skin Appearance Assessed ) -Color ([place]-wound Skin Appearance) Assessed -Temperature ([place]-wound Skin No Abnormality Appearance) (Pt Warm) -Tenderness on Palpation ([place]-wound No Skin Appearance) -Ulcer Cleansing Wound Cleanser -Foul Odor after Cleansing No -Anesthetic Used 4% Lidocaine Solution #1 RIGHT MANLEY INFERIOR -Combined with other wound No -Current Size (cm) - Length 3 -Current Size (cm) - Width 1.5 -Current Size (cm) - Depth 0.3 -Total Square Cm 4.5 -Tunneling No -Undermining/Tunneling No -Circular Undermining No -Exudate Amt Small -Exudate Type Serosanguineous -Wound Margin Thickened & Rolled Under -Granulation Amt Medium (34-66%) -Granulation Quality [place] -Slough/Fibrin Yes -Necrosis Amt Medium (34-66%) -Necrotic Tissue Type Adherent Slough -Structure Exposed N/A -Texture ([place]-wound Skin Appearance) Assessed, Scarring -Moisture ([place]-wound Skin Appearance Assessed ) -Color ([place]-wound Skin Appearance) Assessed -Temperature ([place]-wound Skin No Abnormality Appearance) (Pt Warm) -Tenderness on Palpation ([place]-wound No Skin Appearance) -Ulcer Cleansing Wound Cleanser -Foul Odor after Cleansing No -Anesthetic Used 4% Lidocaine Solution [Edema Assessment] -Lower Limb Edema Present Yes -Right Calf (cm) 40 -Right Ankle (cm) 24 WC - Nurse 2 - General Ulcer CM Notes Start: 05/19/20 08:48 Freq: Status: Active Protocol: Activity Type Activity Date Activity User E-Sign Co-Sign Detail Recorded Client Recorded Date Recorded By Document 06/02/20 09:09 MW [id number] 06/02/20 09:14 MW 06/02/20 09:09 Wound Center Nurse 2 [Procedure/Treatment] #2 RIGHT MANLEY SUPERIOR CLUSTER -Time 09:11 -Correct Patient Yes -Correct Side, Site, Position Yes -Correct Procedure Yes -Procedure Performed Yes -Type of Procedure Debridement -Clinical Debridement Subcutaneous -Tissue Removed Subcutaneous -Post Debridement (cm) - Length 5.7 -Post Debridement (cm) - Width 2.0 -Post Debridement (cm) - Depth 0.1 -Total Square (Post) (cm) 11.40 -Area of Debridement (cm) - Length 5.7 -Area of Debridement (cm) - Width 2.0 -Total Square (Area) (cm) 11.40 -Tunneling No -Undermining/Tunneling No -Circular Undermining No -Wound/Ulcer Outcome Not Healed -Ulcer Cleansing Rinsed/ Irrigated with Saline -Foul Odor after Cleansing No -Bioengineered Tissue No -Type of Offloading Total Contact Cast (TCC) - Left ($) -Debridement - Subq, 1st 20sq cm Yes #1 RIGHT MANLEY INFERIOR -Time 09:13 -Correct Patient Yes -Correct Side, Site, Position Yes -Correct Procedure Yes -Procedure Performed Yes -Type of Procedure Debridement -Clinical Debridement Subcutaneous -Tissue Removed Subcutaneous -Post Debridement (cm) - Length 1.5 -Post Debridement (cm) - Width 1.2 -Post Debridement (cm) - Depth 0.1 -Total Square (Post) (cm) 1.80 -Area of Debridement (cm) - Length 1.5 -Area of Debridement (cm) - Width 1.2 -Total Square (Area) (cm) 1.80 -Tunneling No -Undermining/Tunneling No -Circular Undermining No -Wound/Ulcer Outcome Not Healed -Ulcer Cleansing Rinsed/ Irrigated with Saline -Foul Odor after Cleansing No -Bioengineered Tissue No -Bleeding Controlled with Pressure -Offloading No -Treatment Response Procedure Tolerated Well -Debridement - Subq, 1st 20sq cm No [See Physician Procedure note for Specifics] Pain Scale: 0-10 Numeric [Pain] -Is Patient Pain Free? Yes - Nurse 3 - General Ulcer D/C NN Start: 05/19/20 08:48 Freq: Status: Active Protocol: Activity Type Activity Date Activity User E-Sign Co-Sign Detail Recorded Client Recorded Date Recorded By Document 06/02/20 09:21 [facility] [id number] 06/02/20 09:22 [facility] 06/02/20 09:21 Wound Care Nurse 3 [Wound Dressing] #2 RIGHT MANLEY SUPERIOR CLUSTER -Ulcer Cleansing Rinsed/ Irrigated with Saline -Foul Odor after Cleansing No -Primary Dressing Applied Fibracol Plus 4x4,NonAdherent Contact Layer -Primary Dressing Covered/Secured Dry Gauze & with Roll Gauze, Secured with Tape -Fibracol Plus 4x4 1 #1 RIGHT MANLEY INFERIOR -Ulcer Cleansing Rinsed/ Irrigated with Saline -Foul Odor after Cleansing No -Primary Dressing Applied Fibracol Plus 4x4,NonAdherent Contact Layer -Primary Dressing Covered/Secured Dry Gauze & with Roll Gauze, Secured with Tape -Fibracol Plus 4x4 0 Pain Scale: 0-10 Numeric [Pain] -Is Patient Pain Free? Yes - Visit Discharge [Visit Discharge Information] -Discharge Condition Stable -Ambulatory Status Ambulatory -Transportation Private Auto Musculoskeletal: No Tenderness to Palpation of Joints or Extremities Lymphatic: No Cervical, Supraclavicular, or Inguinal Adenopathy Neurological: Cranial nerves II-XII grossly intact, Neuro grossly intact Psych/Mental Status: Normal Affect, Appropriate Debridement Note Post-Debridement Measurements/Treatment WC - Nurse 2 - General Ulcer CM Notes Start: 05/19/20 08:48 Freq: Status: Active Protocol: Activity Type Activity Date Activity User E-Sign Co-Sign Detail Recorded Client Recorded Date Recorded By Document 05/19/20 09:22 MW [id number] 05/19/20 09:25 MW Document 05/26/20 09:24 MW [id number] 05/26/20 09:30 MW Document 06/02/20 09:09 MW [id number] 06/02/20 09:14 MW 05/19/20 05/26/20 06/02/20 09:22 09:24 09:09 Wound Center Nurse 2 #2 RIGHT MANLYE SUPERIOR CLUSTER -Time 09: 09:26 09:11 -Correct Patient Yes Yes Yes -Correct Side, Site, Position Yes Yes Yes -Correct Procedure Yes Yes Yes -Procedure Performed Yes Yes Yes -Type of Procedure Debridement Debridement Debridement -Clinical Debridement Subcutaneous Subcutaneous Subcutaneous -Tissue Removed Subcutaneous Subcutaneous Subcutaneous -Post Debridement (cm) - Length 5.5 5.4 5.7 -Post Debridement (cm) - Width 3.5 3.5 2.0 -Post Debridement (cm) - Depth 0.4 0.4 0.1 -Total Square (Post) (cm) 19.25 18.90 11.40 -Area of Debridement (cm) - Length 5.5 5.4 5.7 -Area of Debridement (cm) - Width 3.5 3.5 2.0 -Total Square (Area) (cm) 19.25 18.90 11.40 -Tunneling No No No -Undermining/Tunneling No No No -Circular Undermining No No No -Wound/Ulcer Outcome Not Healed Not Healed Not Healed -Ulcer Cleansing Rinsed/ Rinsed/ Rinsed/ Irrigated with Irrigated with Irrigated with Saline Saline Saline -Foul Odor after Cleansing No No No -Bioengineered Tissue No No No -Bleeding Controlled with Pressure,Silver Pressure Nitrate -Offloading No No -Type of Offloading Total Contact Cast (TCC) - Left ($) -Treatment Response Procedure Tolerated Well -Debridement - Subq, 1st 20sq cm Yes Yes Yes -Debridement, SubQ, ea addt'l 20sq cm 1 1 or part thereof #1 RIGHT MANLEY INFERIOR -Time 09:23 09:26 09:13 -Correct Patient Yes Yes Yes -Correct Side, Site, Position Yes Yes Yes -Correct Procedure Yes Yes Yes -Procedure Performed Yes Yes Yes -Type of Procedure Debridement Debridement Debridement -Clinical Debridement Subcutaneous Subcutaneous Subcutaneous -Tissue Removed Subcutaneous Subcutaneous Subcutaneous -Post Debridement (cm) - Length 2.8 3.0 1.5 -Post Debridement (cm) - Width 1.3 1.3 1.2 -Post Debridement (cm) - Depth 0.3 0.2 0.1 -Total Square (Post) (cm) 3.64 3.90 1.80 -Area of Debridement (cm) - Length 2.8 3.0 1.5 -Area of Debridement (cm) - Width 1.3 1.3 1.2 -Total Square (Area) (cm) 3.64 3.90 1.80 -Tunneling No No No -Undermining/Tunneling No No No -Circular Undermining No No No -Wound/Ulcer Outcome Not Healed Not Healed Not Healed -Ulcer Cleansing Rinsed/ Rinsed/ Rinsed/ Irrigated with Irrigated with Irrigated with Saline Saline Saline -Foul Odor after Cleansing No No No -Bioengineered Tissue No No No -Bleeding Controlled with Pressure Pressure Pressure -Offloading No No No -Treatment Response Procedure Procedure Tolerated Well Tolerated Well -Debridement - Subq, 1st 20sq cm No No No Pain Scale: 0-10 Numeric Is Patient Pain Free? Yes Yes Yes WC - Nurse 3 - General Ulcer D/C NN Start: 05/19/20 08:48 Freq: Status: Active Protocol: Activity Type Activity Date Activity User E-Sign Co-Sign Detail Recorded Client Recorded Date Recorded By Document 05/19/20 09:37 MS [id number] 05/19/20 09:40 MS Document 05/26/20 09:42 MW [id number] 05/26/20 09:44 MW Document 06/02/20 09:21 [facility] [id number] 06/02/20 09:22 BMF 05/19/20 05/26/20 06/02/20 09:37 09:42 09:21 Wound Care Nurse 3 #2 RIGHT MANLEY SUPERIOR CLUSTER -Ulcer Cleansing Rinsed/ Rinsed/ Irrigated with Irrigated with Saline Saline -Foul Odor after Cleansing No No -Negative Pressure Wound Therapy N/A -Primary Dressing Applied Fibracol Plus Fibracol Plus Fibracol Plus 4x4 4x4 4x4,NonAdherent Contact Layer -Primary Dressing Covered/Secured with Dry Gauze, Dry Gauze & Dry Gauze & Secured with Roll Gauze, Roll Gauze, Tape Secured with Secured with Tape Tape -Fibracol Plus 4x4 1 1 1 #1 RIGHT MANLEY INFERIOR -Ulcer Cleansing Rinsed/ Irrigated with Saline -Foul Odor after Cleansing No -Primary Dressing Applied Fibracol Plus Fibracol Plus 4x4 4x4,NonAdherent Contact Layer -Primary Dressing Covered/Secured with Dry Gauze, Dry Gauze & Secured with Roll Gauze, Tape Secured with Tape -Fibracol Plus 4x4 1 0 Treatment Response Procedure Tolerated Well Temperature (97.8 F-99.1 F) 98.0 F Temperature Source Temporal Vital Signs Pulse Rate (60-100 beats/min) 50 L 56 L Pulse Location Monitor Monitor Respiratory Rate (12-18 breaths/min) 18 20 H Respiratory rate source Observation Observation Oxygen Delivery Method Room Air Room Air Blood Pressure (90/60-120/80 mm Hg) 142/90 H 135/80 H Blood Pressure Mean (mm Hg) 107 98 Source Monitor Monitor Position Semi-Fowlers Sitting Blood Pressure Location Right Arm Right Arm Pain Scale: 0-10 Numeric Is Patient Pain Free? Yes Yes Yes Teaching: Wound Center Dressing Your Wound -Person Taught Patient -Teaching Method Discussion, Demonstration -Response to teaching Verbalize understanding WC - Visit Discharge Discharge Condition Stable Stable Stable Ambulatory Status Ambulatory Ambulatory Ambulatory Transportation Private Auto Private Auto Private Auto Accompanied by self Medication Reconcilliation completed & No No provided to patient/care provider Clinical Summary of Care Provided Yes Yes Wound debrided: Inferior wound Type of Debridement: Excisional debridement Anesthesia Used: 5% Lidocaine Gel Depth: Down to and including healthy tissue, in the subcutaneous layer Percentage of wound debrided: 100 Instrument Used: 5mm curette Tissue Removed: Fibrin and some devitalized tissue Severity: Limited To Skin Breakdown Amount of bleeding with debridement: None Bleeding Controlled with: Pressure Patient tolerated procedure well - Additional Wound Wound debrided: Superior cluster wound right manley Type of Debridement: Excisional debridement Anesthesia Used: 5% Lidocaine Gel Depth: Down to and including healthy tissue, in the subcutaneous layer Percentage of wound debrided: 100 Instrument Used: 5mm curette Tissue Removed: Fibrin Severity: Fat Layer Exposed Amount of bleeding with debridement: Mild Bleeding Controlled with: Compression and gauze Patient tolerated procedure: Patient tolerated procedure well Assessment/Plan Active Problems (Last Updated 09/20/17 @ 14:24 by Sue Adkins) Psoriasis (a type of skin inflammation) (Acute) Traumatic open wound of right lower leg with delayed healing (Acute) Non-pressure chronic ulcer right lower leg, limited to breakdown skin (Acute) Assessment: Atrial fib. Long-term use of Coumadin. Nonhealing nonsurgical cluster wound right manley. Chronic nonhealing nonpressure wound right lower malney Plan: Wash leg with Hibiclens apply Fibracol to wound base cover with Adaptic then gauze. Double layer Tubigrip daily. Follow-up in 1 week. Did apply for skin sub-to run through insurance
[2020-06-09 08:39] VITALS: BMI 30.7
[2020-06-09 09:01] VITALS: BP 134/76
--- NOTE | 2020-06-09 09:19 | PCM.WC.PN ---
(1) Psoriasis (a type of skin inflammation) Status: Acute Code(s): L40.9 - Psoriasis, unspecified (2) Traumatic open wound of right lower leg with delayed healing Status: Acute Code(s): S81.801D - Unspecified open wound, right lower leg, subsequent encounter (3) Non-pressure chronic ulcer right lower leg, limited to breakdown skin Status: Acute Code(s): L97.911 - Non-pressure chronic ulcer of unspecified part of right lower leg limited to breakdown of skin Type of Wound Date of Service: 06/09/20 Chief Complaint: Follow-up right manley traumatic wound History of Wound: 64-year-old white male with history of psoriasis on both shins hit his right leg against a elevator shaft a month prior to his arrival here the first part of March and developed large deep open wounds nonhealing. Patient was seen by his primary doctor and was put on doxycycline and given Silvadene cream for care. Progress of Wound: A chronic greater than 30-day old wound from trauma to the right manley superior wound shows tendon inferior wound has some skin buds growing the wound is getting smaller patient has been taking doxycycline will finish that but also obtained some x-ray of the tib-fib are negative. CBC with differential was within normal limits and a new set of wound cultures that did have growth, started on Levaquin, that he has finished now. We will continue the Fibracol that seems to be healing well. Skin substitute was denied by his insurance company. The lower part of the wound is healed and just the cluster is left healing well no sign of infection - Physical Exam Vital Signs Temp Pulse Resp BP 98 F 53 L 18 134/76 H 06/02/20 08:58 06/02/20 08:58 06/02/20 08:58 06/09/20 09:01 General: Oriented x3, Cooperative, Well developed HEENT: Atraumatic, PERRLA Oral: Moist Mucosa Neck: Supple, No JVD Lungs: Clear to auscultation, Normal air movement Cardiovascular: Regular rate, Regular Rhythm Abdomen: Bowel Sounds Present, Soft, Non Tender, No Hepato-splenomegaly Extremities: No clubbing, No edema, - - Traumatic open wound right manley Wound Measurements and Assessment WC - Nurse 1 - General Ulcer Measurement Start: 05/19/20 08:48 Freq: Status: Active Protocol: Activity Type Activity Date Activity User E-Sign Co-Sign Detail Recorded Client Recorded Date Recorded By Document 06/09/20 08:39 DL [id number] 06/09/20 08:41 DL 06/09/20 08:39 Wound Center Nurse 1 [Ulcer Assessment] #2 RIGHT MANLEY SUPERIOR CLUSTER -Current Size (cm) - Length 5 -Current Size (cm) - Width 2.1 -Current Size (cm) - Depth 0.4 -Total Square Cm 10.5 -Photo Taken No -Exudate Amt Small -Exudate Type Serosanguineous -Wound Margin Thickened & Rolled Under -Granulation Amt Small (1-33%) -Granulation Quality [place] -Necrosis Amt Large (67-100%) -Necrotic Tissue Type Adherent Slough -Structure Exposed N/A -Texture ([place]-wound Skin Appearance) Localized Edema ,Scarring -Moisture ([place]-wound Skin Appearance No Abnormality ) -Color ([place]-wound Skin Appearance) Rubor -Temperature ([place]-wound Skin No Abnormality Appearance) (Pt Warm) -Tenderness on Palpation ([place]-wound No Skin Appearance) -Ulcer Cleansing Wound Cleanser -Foul Odor after Cleansing No -Anesthetic Used 4% Lidocaine Solution #1 RIGHT MANLEY INFERIOR -Current Size (cm) - Length 0.7 -Current Size (cm) - Width 0.6 -Current Size (cm) - Depth 0.1 -Total Square Cm 0.42 -Photo Taken No -Exudate Amt Small -Exudate Type Serosanguineous -Wound Margin Distinct, Outline Attached -Granulation Amt None Present (0 %) -Necrosis Amt Large (67-100%) -Necrotic Tissue Type Adherent Slough -Structure Exposed N/A -Texture ([place]-wound Skin Appearance) Localized Edema ,Scarring -Moisture ([place]-wound Skin Appearance No Abnormality ) -Color ([place]-wound Skin Appearance) Rubor -Temperature ([place]-wound Skin No Abnormality Appearance) (Pt Warm) -Tenderness on Palpation ([place]-wound No Skin Appearance) -Ulcer Cleansing Wound Cleanser -Foul Odor after Cleansing No -Anesthetic Used 4% Lidocaine Solution [Edema Assessment] -Right Calf (cm) 39.7 -Right Ankle (cm) 22.3 WC - Nurse 2 - General Ulcer CM Notes Start: 05/19/20 08:48 Freq: Status: Active Protocol: Activity Type Activity Date Activity User E-Sign Co-Sign Detail Recorded Client Recorded Date Recorded By Document 06/09/20 08:50 MW [id number] 06/09/20 08:53 MW 06/09/20 08:50 Wound Center Nurse 2 [Procedure/Treatment] #2 RIGHT MANLEY SUPERIOR CLUSTER -Time 08:50 -Correct Patient Yes -Correct Side, Site, Position Yes -Correct Procedure Yes -Procedure Performed Yes -Type of Procedure Debridement -Clinical Debridement Subcutaneous -Tissue Removed Subcutaneous -Post Debridement (cm) - Length 4.9 -Post Debridement (cm) - Width 3.2 -Post Debridement (cm) - Depth 0.5 -Total Square (Post) (cm) 15.68 -Area of Debridement (cm) - Length 4.9 -Area of Debridement (cm) - Width 3.2 -Total Square (Area) (cm) 15.68 -Tunneling No -Undermining/Tunneling No -Circular Undermining No -Wound/Ulcer Outcome Not Healed -Ulcer Cleansing Rinsed/ Irrigated with Saline -Foul Odor after Cleansing No -Bioengineered Tissue No -Bleeding Controlled with Pressure -Offloading No -Treatment Response Procedure Tolerated Well -Debridement - Subq, 1st 20sq cm Yes #1 RIGHT MANLEY INFERIOR -Time 08:50 -Correct Patient Yes -Correct Side, Site, Position Yes -Correct Procedure Yes -Procedure Performed No -Post Debridement (cm) - Length 0 -Post Debridement (cm) - Width 0 -Post Debridement (cm) - Depth 0 -Total Square (Post) (cm) 0 -Wound/Ulcer Outcome Healed- Epithelialized -Ulcer Cleansing Rinsed/ Irrigated with Saline -Foul Odor after Cleansing No -Bioengineered Tissue No -Bleeding Controlled with Silver Nitrate [See Physician Procedure note for Specifics] WC - Nurse 3 - General Ulcer D/C NN Start: 05/19/20 08:48 Freq: Status: Active Protocol: Activity Type Activity Date Activity User E-Sign Co-Sign Detail Recorded Client Recorded Date Recorded By Document 06/09/20 09:01 RB [id number] 06/09/20 09:05 RB 06/09/20 09:01 Wound Care Nurse 3 [Wound Dressing] #2 RIGHT MANLEY SUPERIOR CLUSTER -Ulcer Cleansing Wound Cleanser -Primary Dressing Applied Fibracol Plus 4x4,NonAdherent Contact Layer -Primary Dressing Covered/Secured Dry Gauze,Dry with Gauze & Roll Gauze,Secured with Tape -Fibracol Plus 4x4 1 [Compression Applied] Right -Other pt own tubigrip double layer [Post Procedure Tolerated] -Treatment Response Procedure Tolerated Well Vital Signs [Blood Pressure] -Blood Pressure (90/60-120/80 mm Hg) 134/76 H -Blood Pressure Mean (mm Hg) 95 -Source Monitor -Position Semi-Fowlers -Blood Pressure Location Left Arm Pain Scale: 0-10 Numeric [Pain] -Is Patient Pain Free? Yes WC - Visit Discharge [Visit Discharge Information] -Discharge Condition Stable -Ambulatory Status Ambulatory -Transportation Private Auto -Medication Reconcilliation completed No & provided to patient/care provider -Clinical Summary of Care Provided Yes Musculoskeletal: No Tenderness to Palpation of Joints or Extremities Lymphatic: No Cervical, Supraclavicular, or Inguinal Adenopathy Neurological: Cranial nerves II-XII grossly intact, Neuro grossly intact Psych/Mental Status: Normal Affect, Appropriate Debridement Note Post-Debridement Measurements/Treatment WC - Nurse 2 - General Ulcer CM Notes Start: 05/19/20 08:48 Freq: Status: Active Protocol: Activity Type Activity Date Activity User E-Sign Co-Sign Detail Recorded Client Recorded Date Recorded By Document 05/19/20 09:22 MW [id number] 05/19/20 09:25 MW Document 05/26/20 09:24 MW [id number] 05/26/20 09:30 MW Document 06/02/20 09:09 MW [id number] 06/02/20 09:14 MW Document 06/09/20 08:50 MW [id number] 06/09/20 08:53 MW 05/19/20 05/26/20 06/02/20 09:22 09:24 09:09 Wound Center Nurse 2 #2 RIGHT MANLEY SUPERIOR CLUSTER -Time 09:22 09:26 09:11 -Correct Patient Yes Yes Yes -Correct Side, Site, Position Yes Yes Yes -Correct Procedure Yes Yes Yes -Procedure Performed Yes Yes Yes -Type of Procedure Debridement Debridement Debridement -Clinical Debridement Subcutaneous Subcutaneous Subcutaneous -Tissue Removed Subcutaneous Subcutaneous Subcutaneous -Post Debridement (cm) - Length 5.5 5.4 5.7 -Post Debridement (cm) - Width 3.5 3.5 2.0 -Post Debridement (cm) - Depth 0.4 0.4 0.1 -Total Square (Post) (cm) 19.25 18.90 11.40 -Area of Debridement (cm) - Length 5.5 5.4 5.7 -Area of Debridement (cm) - Width 3.5 3.5 2.0 -Total Square (Area) (cm) 19.25 18.90 11.40 -Tunneling No No No -Undermining/Tunneling No No No -Circular Undermining No No No -Wound/Ulcer Outcome Not Healed Not Healed Not Healed -Ulcer Cleansing Rinsed/ Rinsed/ Rinsed/ Irrigated with Irrigated with Irrigated with Saline Saline Saline -Foul Odor after Cleansing No No No -Bioengineered Tissue No No No -Bleeding Controlled with Pressure,Silver Pressure Nitrate -Offloading No No -Treatment Response Procedure Tolerated Well -Debridement - Subq, 1st 20sq cm Yes Yes Yes -Debridement, SubQ, ea addt'l 20sq cm 1 1 or part thereof #1 RIGHT MANLEY INFERIOR -Time 09:23 09:26 09:13 -Correct Patient Yes Yes Yes -Correct Side, Site, Position Yes Yes Yes -Correct Procedure Yes Yes Yes -Procedure Performed Yes Yes Yes -Type of Procedure Debridement Debridement Debridement -Clinical Debridement Subcutaneous Subcutaneous Subcutaneous -Tissue Removed Subcutaneous Subcutaneous Subcutaneous -Post Debridement (cm) - Length 2.8 3.0 1.5 -Post Debridement (cm) - Width 1.3 1.3 1.2 -Post Debridement (cm) - Depth 0.3 0.2 0.1 -Total Square (Post) (cm) 3.64 3.90 1.80 -Area of Debridement (cm) - Length 2.8 3.0 1.5 -Area of Debridement (cm) - Width 1.3 1.3 1.2 -Total Square (Area) (cm) 3.64 3.90 1.80 -Tunneling No No No -Undermining/Tunneling No No No -Circular Undermining No No No -Wound/Ulcer Outcome Not Healed Not Healed Not Healed -Ulcer Cleansing Rinsed/ Rinsed/ Rinsed/ Irrigated with Irrigated with Irrigated with Saline Saline Saline -Foul Odor after Cleansing No No No -Bioengineered Tissue No No No -Bleeding Controlled with Pressure Pressure Pressure -Offloading No No No -Treatment Response Procedure Procedure Tolerated Well Tolerated Well -Debridement - Subq, 1st 20sq cm No No No Pain Scale: 0-10 Numeric Is Patient Pain Free? Yes Yes Yes 06/09/20 08:50 Wound Center Nurse 2 #2 RIGHT MANLEY SUPERIOR CLUSTER -Time 08:50 -Correct Patient Yes -Correct Side, Site, Position Yes -Correct Procedure Yes -Procedure Performed Yes -Type of Procedure Debridement -Clinical Debridement Subcutaneous -Tissue Removed Subcutaneous -Post Debridement (cm) - Length 4.9 -Post Debridement (cm) - Width 3.2 -Post Debridement (cm) - Depth 0.5 -Total Square (Post) (cm) 15.68 -Area of Debridement (cm) - Length 4.9 -Area of Debridement (cm) - Width 3.2 -Total Square (Area) (cm) 15.68 -Tunneling No -Undermining/Tunneling No -Circular Undermining No -Wound/Ulcer Outcome Not Healed -Ulcer Cleansing Rinsed/ Irrigated with Saline -Foul Odor after Cleansing No -Bioengineered Tissue No -Bleeding Controlled with Pressure -Offloading No -Treatment Response Procedure Tolerated Well -Debridement - Subq, 1st 20sq cm Yes -Debridement, SubQ, ea addt'l 20sq cm or part thereof #1 RIGHT MANLEY INFERIOR -Time 08:50 -Correct Patient Yes -Correct Side, Site, Position Yes -Correct Procedure Yes -Procedure Performed No -Type of Procedure -Clinical Debridement -Tissue Removed -Post Debridement (cm) - Length 0 -Post Debridement (cm) - Width 0 -Post Debridement (cm) - Depth 0 -Total Square (Post) (cm) 0 -Area of Debridement (cm) - Length -Area of Debridement (cm) - Width -Total Square (Area) (cm) -Tunneling -Undermining/Tunneling -Circular Undermining -Wound/Ulcer Outcome Healed- Epithelialized -Ulcer Cleansing Rinsed/ Irrigated with Saline -Foul Odor after Cleansing No -Bioengineered Tissue No -Bleeding Controlled with Silver Nitrate -Offloading -Treatment Response -Debridement - Subq, 1st 20sq cm Pain Scale: 0-10 Numeric Is Patient Pain Free? WC - Nurse 3 - General Ulcer D/C NN Start: 05/19/20 08:48 Freq: Status: Active Protocol: Activity Type Activity Date Activity User E-Sign Co-Sign Detail Recorded Client Recorded Date Recorded By Document 05/19/20 09:37 MS [id number] 05/19/20 09:40 MS Document 05/26/20 09:42 MW [id number] 05/26/20 09:44 MW Document 06/02/20 09:21 [facility] [id number] 06/02/20 09:22 BMF Document 06/09/20 09:01 RB [id number] 06/09/20 09:05 RB 05/19/20 05/26/20 06/02/20 09:37 09:42 09:21 Wound Care Nurse 3 #2 RIGHT MANLEY SUPERIOR CLUSTER -Ulcer Cleansing Rinsed/ Rinsed/ Irrigated with Irrigated with Saline Saline -Foul Odor after Cleansing No No -Negative Pressure Wound Therapy N/A -Primary Dressing Applied Fibracol Plus Fibracol Plus Fibracol Plus 4x4 4x4 4x4,NonAdherent Contact Layer -Primary Dressing Covered/Secured with Dry Gauze, Dry Gauze & Dry Gauze & Secured with Roll Gauze, Roll Gauze, Tape Secured with Secured with Tape Tape -Fibracol Plus 4x4 1 1 1 #1 RIGHT MANLEY INFERIOR -Ulcer Cleansing Rinsed/ Irrigated with Saline -Foul Odor after Cleansing No -Primary Dressing Applied Fibracol Plus Fibracol Plus 4x4 4x4,NonAdherent Contact Layer -Primary Dressing Covered/Secured with Dry Gauze, Dry Gauze & Secured with Roll Gauze, Tape Secured with Tape -Fibracol Plus 4x4 1 0 Right -Other Treatment Response Procedure Tolerated Well Temperature (97.8 F-99.1 F) 98.0 F Temperature Source Temporal Vital Signs Pulse Rate (60-100 beats/min) 50 L 56 L Pulse Location Monitor Monitor Respiratory Rate (12-18 breaths/min) 18 20 H Respiratory rate source Observation Observation Oxygen Delivery Method Room Air Room Air Blood Pressure (90/60-120/80 mm Hg) 142/90 H 135/80 H Blood Pressure Mean (mm Hg) 107 98 Source Monitor Monitor Position Semi-Fowlers Sitting Blood Pressure Location Right Arm Right Arm Pain Scale: 0-10 Numeric Is Patient Pain Free? Yes Yes Yes Teaching: Wound Center Dressing Your Wound -Person Taught Patient -Teaching Method Discussion, Demonstration -Response to teaching Verbalize understanding WC - Visit Discharge Discharge Condition Stable Stable Stable Ambulatory Status Ambulatory Ambulatory Ambulatory Transportation Private Auto Private Auto Private Auto Accompanied by self Medication Reconcilliation completed & No No provided to patient/care provider Clinical Summary of Care Provided Yes Yes 06/09/20 09:01 Wound Care Nurse 3 #2 RIGHT MANLEY SUPERIOR CLUSTER -Ulcer Cleansing Wound Cleanser -Foul Odor after Cleansing -Negative Pressure Wound Therapy -Primary Dressing Applied Fibracol Plus 4x4,NonAdherent Contact Layer -Primary Dressing Covered/Secured with Dry Gauze,Dry Gauze & Roll Gauze,Secured with Tape -Fibracol Plus 4x4 1 #1 RIGHT MANLEY INFERIOR -Ulcer Cleansing -Foul Odor after Cleansing -Primary Dressing Applied -Primary Dressing Covered/Secured with -Fibracol Plus 4x4 Right -Other pt own tubigrip double layer Treatment Response Procedure Tolerated Well Temperature (97.8 F-99.1 F) Temperature Source Vital Signs Pulse Rate (60-100 beats/min) Pulse Location Respiratory Rate (12-18 breaths/min) Respiratory rate source Oxygen Delivery Method Blood Pressure (90/60-120/80 mm Hg) 134/76 H Blood Pressure Mean (mm Hg) 95 Source Monitor Position Semi-Fowlers Blood Pressure Location Left Arm Pain Scale: 0-10 Numeric Is Patient Pain Free? Yes Teaching: Wound Center Dressing Your Wound -Person Taught -Teaching Method -Response to teaching WC - Visit Discharge Discharge Condition Stable Ambulatory Status Ambulatory Transportation Private Auto Accompanied by Medication Reconcilliation completed & No provided to patient/care provider Clinical Summary of Care Provided Yes Wound debrided: Right manley superior cluster Type of Debridement: Excisional debridement Anesthesia Used: 5% Lidocaine Gel Depth: Down to and including healthy tissue, in the subcutaneous layer, to muscle Percentage of wound debrided: 100 Instrument Used: 5mm curette Tissue Removed: Slough and devitalized tissue Severity: Limited To Skin Breakdown Amount of bleeding with debridement: Mild Bleeding Controlled with: Pressure Patient tolerated procedure well Assessment/Plan Active Problems (Last Updated 09/20/17 @ 14:24 by Sue Adkins) Psoriasis (a type of skin inflammation) (Acute) Traumatic open wound of right lower leg with delayed healing (Acute) Non-pressure chronic ulcer right lower leg, limited to breakdown skin (Acute) Assessment: Atrial fib. Long-term use of Coumadin. Nonhealing nonsurgical cluster wound right manley. Chronic nonhealing nonpressure wound right lower manley Plan: Wash leg with Hibiclens apply Fibracol to wound base cover with Adaptic then gauze. Double layer Tubigrip daily. Follow-up in 1 week. Did apply for skin sub-to run through insurance
== END 2020-06-12 23:59 ==
LOC: WC 08:30
PROVIDERS: PCP Family Medicine; Referring Provider Family Medicine; Visit Provider Nurse Practitioner
DX: L97.911 Non-pressure chronic ulcer of unspecified part of right lower leg limited to breakdown of skin (principal); S81.801D Unspecified open wound, right lower leg, subsequent encounter; L40.9 Psoriasis, unspecified; I48.91 Unspecified atrial fibrillation; Z79.01 Long term (current) use of anticoagulants
CPT/HCPCS: 11042; 11045; 29445

== ENCOUNTER 2020-07-07 08:15 | Outpatient (RCR) | payer BC, SELFPAY ==
[2020-06-13 00:34] VITALS: BP 134/76; PULSE 53; RESP 18; TEMP 36.6
[2020-06-16 08:38] VITALS: BP 140/90; PULSE 57; RESP 17; TEMP 36.3; BMI 30.7
[2020-06-16 09:06] VITALS: BP 130/89
--- NOTE | 2020-06-16 09:15 | PCM.WC.PN ---
(1) Non-pressure chronic ulcer right lower leg, limited to breakdown skin Status: Acute Code(s): L97.911 - Non-pressure chronic ulcer of unspecified part of right lower leg limited to breakdown of skin (2) Nonhealing nonsurgical wound with fat layer exposed Status: Acute Code(s): T14.8XXA - Other injury of unspecified body region, initial encounter (3) Psoriasis (a type of skin inflammation) Status: Acute Code(s): L40.9 - Psoriasis, unspecified (4) Traumatic open wound of right lower leg with delayed healing Status: Acute Code(s): S81.801D - Unspecified open wound, right lower leg, subsequent encounter Type of Wound Date of Service: 06/16/20 Chief Complaint: Follow-up right manley traumatic wound History of Wound: 64-year-old white male with history of psoriasis on both shins hit his right leg against a elevator shaft a month prior to his arrival here the first part of March and developed large deep open wounds nonhealing. Patient was seen by his primary doctor and was put on doxycycline and given Silvadene cream for care. Progress of Wound: A chronic greater than 30-day old wound from trauma to the right manley superior wound shows tendon inferior wound has some skin buds growing the wound is getting smaller patient has finished taking doxycycline ,obtained some x-ray of the tib-fib are negative. CBC with differential was within normal limits and a new set of wound cultures that did have growth, started on Levaquin, that he has finished now. We will continue the Fibracol that seems to be healing well. Skin substitute was denied by his insurance company. Continues to use Fibracol with success bottom half of wound is healed now just dealing with the cluster part which was the deepest end. The lower part of the wound is healed and just the cluster is left healing well no sign of infection - Physical Exam Vital Signs Temp Pulse Resp BP 97.3 F L 57 L 17 130/89 H 06/16/20 08:38 06/16/20 08:38 06/16/20 08:38 06/16/20 09:06 General: Oriented x3, Cooperative, Well developed HEENT: Atraumatic, PERRLA Oral: Moist Mucosa Neck: Supple, No JVD Lungs: Clear to auscultation, Normal air movement Cardiovascular: Regular rate, Regular Rhythm Abdomen: Bowel Sounds Present, Soft, Non Tender, No Hepato-splenomegaly Extremities: No clubbing, No edema Skin: Ulcer/ Wound - Traumatic ulcer right manley with depth Wound Measurements and Assessment WC - Nurse 1 - General Ulcer Measurement Start: 06/16/20 08:38 Freq: Status: Active Protocol: Activity Type Activity Date Activity User E-Sign Co-Sign Detail Recorded Client Recorded Date Recorded By Document 06/16/20 08:38 MS [id number] 06/16/20 08:40 MS 06/16/20 08:38 Wound Center Nurse 1 [Ulcer Assessment] #2 RIGHT MANLEY SUPERIOR CLUSTER -Current Size (cm) - Length 4.8 -Current Size (cm) - Width 3 -Current Size (cm) - Depth 0.5 -Total Square Cm 14.4 -Epithelialization Small 1-33% -Exudate Amt Medium -Exudate Type Serosanguineous -Wound Margin Distinct, Outline Attached -Granulation Amt Small (1-33%) -Slough/Fibrin Yes -Necrosis Amt Medium (34-66%) -Necrotic Tissue Type Adherent Slough -Texture (Sowmya-wound Skin Appearance) No Abnormality, Assessed -Moisture (Sowmya-wound Skin Appearance No Abnormality, ) Assessed -Color (Sowmya-wound Skin Appearance) No Abnormality, Assessed -Temperature (Sowmya-wound Skin No Abnormality Appearance) (Pt Warm) -Tenderness on Palpation (Sowmya-wound No Skin Appearance) -Ulcer Cleansing Rinsed/ Irrigated with Saline -Foul Odor after Cleansing No -Anesthetic Used 4% Lidocaine Solution WC - Nurse 2 - General Ulcer CM Notes Start: 06/16/20 08:38 Freq: Status: Active Protocol: Activity Type Activity Date Activity User E-Sign Co-Sign Detail Recorded Client Recorded Date Recorded By Document 06/16/20 08:52 MW [id number] 06/16/20 08:56 MW 06/16/20 08:52 Wound Center Nurse 2 [Procedure/Treatment] -Time 08:53 -Correct Patient Yes -Correct Side, Site, Position Yes -Correct Procedure Yes -Procedure Performed Yes -Type of Procedure Debridement -Clinical Debridement Subcutaneous -Tissue Removed Subcutaneous -Post Debridement (cm) - Length 5.0 -Post Debridement (cm) - Width 2.4 -Post Debridement (cm) - Depth 0.3 -Total Square (Post) (cm) 12.00 -Area of Debridement (cm) - Length 5.0 -Area of Debridement (cm) - Width 2.4 -Total Square (Area) (cm) 12.00 -Tunneling No -Undermining/Tunneling No -Circular Undermining No -Wound/Ulcer Outcome Not Healed -Ulcer Cleansing Rinsed/ Irrigated with Saline -Foul Odor after Cleansing No -Bioengineered Tissue No -Bleeding Controlled with Pressure -Offloading No -Treatment Response Procedure Tolerated Well -Debridement - Subq, 1st 20sq cm Yes [See Physician Procedure note for Specifics] Pain Scale: 0-10 Numeric [Pain] -Is Patient Pain Free? Yes - Nurse 3 - General Ulcer D/C NN Start: 06/16/20 08:38 Freq: Status: Active Protocol: Activity Type Activity Date Activity User E-Sign Co-Sign Detail Recorded Client Recorded Date Recorded By Document 06/16/20 09:06 MS [id number] 06/16/20 09:08 MS 06/16/20 09:06 Wound Care Nurse 3 [Wound Dressing] #2 RIGHT MANLEY SUPERIOR CLUSTER -Ulcer Cleansing Rinsed/ Irrigated with Saline -Foul Odor after Cleansing No -Primary Dressing Applied Fibracol Plus 4x4 -Primary Dressing Covered/Secured Dry Gauze, with Secured with Tape -Fibracol Plus 4x4 1 Vital Signs [Blood Pressure] -Blood Pressure (90/60-120/80 mm Hg) 130/89 H -Blood Pressure Mean (mm Hg) 102 -Source Monitor -Position Sitting -Blood Pressure Location Right Arm Pain Scale: 0-10 Numeric [Pain] -Is Patient Pain Free? Yes - Visit Discharge [Visit Discharge Information] -Discharge Condition Stable -Ambulatory Status Ambulatory -Clinical Summary of Care Provided Yes Musculoskeletal: No Tenderness to Palpation of Joints or Extremities Lymphatic: No Cervical, Supraclavicular, or Inguinal Adenopathy Neurological: Cranial nerves II-XII grossly intact, Neuro grossly intact Psych/Mental Status: Normal Affect, Appropriate Debridement Note Post-Debridement Measurements/Treatment WC - Nurse 2 - General Ulcer CM Notes Start: 06/16/20 08:38 Freq: Status: Active Protocol: Activity Type Activity Date Activity User E-Sign Co-Sign Detail Recorded Client Recorded Date Recorded By Document 06/16/20 08:52 MW [id number] 06/16/20 08:56 MW 06/16/20 08:52 Wound Center Nurse 2 #2 RIGHT MANLEY SUPERIOR CLUSTER -Time 08:53 -Correct Patient Yes -Correct Side, Site, Position Yes -Correct Procedure Yes -Procedure Performed Yes -Type of Procedure Debridement -Clinical Debridement Subcutaneous -Tissue Removed Subcutaneous -Post Debridement (cm) - Length 5.0 -Post Debridement (cm) - Width 2.4 -Post Debridement (cm) - Depth 0.3 -Total Square (Post) (cm) 12.00 -Area of Debridement (cm) - Length 5.0 -Area of Debridement (cm) - Width 2.4 -Total Square (Area) (cm) 12.00 -Tunneling No -Undermining/Tunneling No -Circular Undermining No -Wound/Ulcer Outcome Not Healed -Ulcer Cleansing Rinsed/ Irrigated with Saline -Foul Odor after Cleansing No -Bioengineered Tissue No -Bleeding Controlled with Pressure -Offloading No -Treatment Response Procedure Tolerated Well -Debridement - Subq, 1st 20sq cm Yes Pain Scale: 0-10 Numeric Is Patient Pain Free? Yes - Nurse 3 - General Ulcer D/C NN Start: 06/16/20 08:38 Freq: Status: Active Protocol: Activity Type Activity Date Activity User E-Sign Co-Sign Detail Recorded Client Recorded Date Recorded By Document 06/16/20 09:06 MS [id number] 06/16/20 09:08 MS 06/16/20 09:06 Wound Care Nurse 3 #2 RIGHT MANLEY SUPERIOR CLUSTER -Ulcer Cleansing Rinsed/ Irrigated with Saline -Foul Odor after Cleansing No -Primary Dressing Applied Fibracol Plus 4x4 -Primary Dressing Covered/Secured with Dry Gauze, Secured with Tape -Fibracol Plus 4x4 1 Vital Signs Blood Pressure (90/60-120/80 mm Hg) 130/89 H Blood Pressure Mean (mm Hg) 102 Source Monitor Position Sitting Blood Pressure Location Right Arm Pain Scale: 0-10 Numeric Is Patient Pain Free? Yes WC - Visit Discharge Discharge Condition Stable Ambulatory Status Ambulatory Clinical Summary of Care Provided Yes Wound debrided: Right manley cluster Type of Debridement: Excisional debridement Anesthesia Used: 5% Lidocaine Gel Depth: Down to and including healthy tissue, in the subcutaneous layer Percentage of wound debrided: 100 Instrument Used: 7mm curette Tissue Removed: Fibrin fat tissue devitalized tissue Severity: Fat Layer Exposed Amount of bleeding with debridement: Mild Bleeding Controlled with: Compression and gauze Patient tolerated procedure well Assessment/Plan Active Problems (Last Updated 09/20/17 @ 14:24 by Sue Adkins) Psoriasis (a type of skin inflammation) (Acute) Traumatic open wound of right lower leg with delayed healing (Acute) Nonhealing nonsurgical wound with fat layer exposed (Acute) Non-pressure chronic ulcer right lower leg, limited to breakdown skin (Acute) Assessment: Atrial fib. Long-term use of Coumadin. Nonhealing nonsurgical cluster wound right manley. Chronic nonhealing nonpressure wound right lower manley Plan: Wash leg with Hibiclens apply Fibracol to wound base cover with Adaptic then gauze. Double layer Tubigrip daily. Follow-up in 1 week. Did apply for skin sub-to run through insurance
[2020-06-23 08:19] VITALS: BP 148/90; PULSE 52; RESP 16; TEMP 36.1; BMI 30.7
--- NOTE | 2020-06-23 08:56 | PCM.WC.PN ---
(1) Non-pressure chronic ulcer right lower leg, limited to breakdown skin Status: Acute Code(s): L97.911 - Non-pressure chronic ulcer of unspecified part of right lower leg limited to breakdown of skin (2) Nonhealing nonsurgical wound with fat layer exposed Status: Acute Code(s): T14.8XXA - Other injury of unspecified body region, initial encounter (3) Psoriasis (a type of skin inflammation) Status: Acute Code(s): L40.9 - Psoriasis, unspecified Type of Wound Date of Service: 06/23/20 Chief Complaint: Follow-up right manley traumatic wound History of Wound: 64-year-old white male with history of psoriasis on both shins hit his right leg against a elevator shaft a month prior to his arrival here the first part of March and developed large deep open wounds nonhealing. Patient was seen by his primary doctor and was put on doxycycline and given Silvadene cream for care. Progress of Wound: A chronic greater than 30-day old wound from trauma to the right manley superior wound shows tendon inferior wound has healed. Obtained some x-ray of the tib-fib are negative. CBC with differential was within normal limits and a new set of wound cultures that did have growth, started on Levaquin, that he has finished now. We will continue the Fibracol that seems to be healing well. Skin substitute was denied by his insurance company. Continues to use Fibracol with success no redness no sign of infection still has some undermining on the upper part of the wound - Physical Exam Vital Signs Temp Pulse Resp BP 97 F L 52 L 16 148/90 H 06/23/20 08:19 06/23/20 08:19 06/23/20 08:19 06/23/20 08:19 General: Oriented x3, Cooperative, Well developed HEENT: Atraumatic, PERRLA Oral: Moist Mucosa Neck: Supple, No JVD Lungs: Clear to auscultation, Normal air movement Cardiovascular: Regular rate, Regular Rhythm Abdomen: Bowel Sounds Present, Soft, Non Tender, No Hepato-splenomegaly Extremities: No clubbing, No edema, - - Right lower manley wound from trauma Wound Measurements and Assessment WC - Nurse 1 - General Ulcer Measurement Start: 06/16/20 08:38 Freq: Status: Active Protocol: Activity Type Activity Date Activity User E-Sign Co-Sign Detail Recorded Client Recorded Date Recorded By Document 06/23/20 08:19 [facility] [id number] 06/23/20 08:26 BMF 06/23/20 08:19 Wound Center Nurse 1 [Ulcer Assessment] #2 RIGHT MANLEY SUPERIOR CLUSTER -Combined with other wound No -Current Size (cm) - Length 4.9 -Current Size (cm) - Width 2 -Current Size (cm) - Depth 0.3 -Total Square Cm 9.8 -Photo Taken No -Epithelialization None Present -Tunneling No -Undermining/Tunneling No -Circular Undermining No -Exudate Amt Medium -Exudate Type Serosanguineous -Wound Margin Distinct, Outline Attached -Granulation Amt None Present (0 %) -Slough/Fibrin Yes -Necrosis Amt Large (67-100%) -Necrotic Tissue Type Adherent Slough -Texture (Sowmya-wound Skin Appearance) Assessed, Scarring -Moisture (Sowmya-wound Skin Appearance Assessed ) -Color (Sowmya-wound Skin Appearance) Assessed -Temperature (Sowmya-wound Skin No Abnormality Appearance) (Pt Warm) -Tenderness on Palpation (Sowmya-wound No Skin Appearance) -Ulcer Cleansing Rinsed/ Irrigated with Saline -Foul Odor after Cleansing No -Anesthetic Used 4% Lidocaine Solution [Edema Assessment] -Lower Limb Edema Present Yes -Right Calf (cm) 40.6 -Right Ankle (cm) 24 WC - Nurse 2 - General Ulcer CM Notes Start: 06/16/20 08:38 Freq: Status: Active Protocol: Activity Type Activity Date Activity User E-Sign Co-Sign Detail Recorded Client Recorded Date Recorded By Document 06/23/20 08:32 MW [id number] 06/23/20 08:38 MW 06/23/20 08:32 Wound Center Nurse 2 [Procedure/Treatment] #2 RIGHT MANLEY SUPERIOR CLUSTER -Time 08:33 -Correct Patient Yes -Correct Side, Site, Position Yes -Correct Procedure Yes -Procedure Performed Yes -Type of Procedure Debridement -Clinical Debridement Subcutaneous -Tissue Removed Subcutaneous -Post Debridement (cm) - Length 4.8 -Post Debridement (cm) - Width 1.0 -Post Debridement (cm) - Depth 0.6 -Total Square (Post) (cm) 4.80 -Area of Debridement (cm) - Length 4.8 -Area of Debridement (cm) - Width 1.0 -Total Square (Area) (cm) 4.80 -Tunneling No -Undermining/Tunneling No -Circular Undermining No -Wound/Ulcer Outcome Not Healed -Ulcer Cleansing Rinsed/ Irrigated with Saline -Foul Odor after Cleansing No -Bioengineered Tissue No -Bleeding Controlled with Pressure -Offloading No -Treatment Response Procedure Tolerated Well -Debridement - Subq, 1st 20sq cm Yes [See Physician Procedure note for Specifics] Pain Scale: 0-10 Numeric [Pain] -Is Patient Pain Free? Yes - Nurse 3 - General Ulcer D/C NN Start: 06/16/20 08:38 Freq: Status: Active Protocol: Activity Type Activity Date Activity User E-Sign Co-Sign Detail Recorded Client Recorded Date Recorded By Document 06/23/20 08:45 KR [id number] 06/23/20 08:47 KR 06/23/20 08:45 Wound Care Nurse 3 [Wound Dressing] #2 RIGHT MANLEY SUPERIOR CLUSTER -Ulcer Cleansing Rinsed/ Irrigated with Saline -Foul Odor after Cleansing No -Primary Dressing Applied Fibracol Plus 4x4 -Primary Dressing Covered/Secured Dry Gauze & with Roll Gauze, Secured with Tape -Fibracol Plus 4x4 1 [Compression Applied] Right -Other pt own double own tube a dye house worker applied [Post Procedure Tolerated] -Treatment Response Procedure Tolerated Well Pain Scale: 0-10 Numeric [Pain] -Is Patient Pain Free? Yes - Visit Discharge [Visit Discharge Information] -Discharge Condition Stable -Ambulatory Status Ambulatory -Transportation Private Auto Musculoskeletal: No Tenderness to Palpation of Joints or Extremities Lymphatic: No Cervical, Supraclavicular, or Inguinal Adenopathy Neurological: Cranial nerves II-XII grossly intact, Neuro grossly intact Psych/Mental Status: Normal Affect, Appropriate Debridement Note Post-Debridement Measurements/Treatment - Nurse 2 - General Ulcer CM Notes Start: 06/16/20 08:38 Freq: Status: Active Protocol: Activity Type Activity Date Activity User E-Sign Co-Sign Detail Recorded Client Recorded Date Recorded By Document 06/16/20 08:52 MW [id number] 06/16/20 08:56 MW Document 06/23/20 08:32 MW [id number] 06/23/20 08:38 MW 06/16/20 06/23/20 08:52 08:32 Wound Center Nurse 2 #2 RIGHT MANLEY SUPERIOR CLUSTER -Time 08:53 08:33 -Correct Patient Yes Yes -Correct Side, Site, Position Yes Yes -Correct Procedure Yes Yes -Procedure Performed Yes Yes -Type of Procedure Debridement Debridement -Clinical Debridement Subcutaneous Subcutaneous -Tissue Removed Subcutaneous Subcutaneous -Post Debridement (cm) - Length 5.0 4.8 -Post Debridement (cm) - Width 2.4 1.0 -Post Debridement (cm) - Depth 0.3 0.6 -Total Square (Post) (cm) 12.00 4.80 -Area of Debridement (cm) - Length 5.0 4.8 -Area of Debridement (cm) - Width 2.4 1.0 -Total Square (Area) (cm) 12.00 4.80 -Tunneling No No -Undermining/Tunneling No No -Circular Undermining No No -Wound/Ulcer Outcome Not Healed Not Healed -Ulcer Cleansing Rinsed/ Rinsed/ Irrigated with Irrigated with Saline Saline -Foul Odor after Cleansing No No -Bioengineered Tissue No No -Bleeding Controlled with Pressure Pressure -Offloading No No -Treatment Response Procedure Procedure Tolerated Well Tolerated Well -Debridement - Subq, 1st 20sq cm Yes Yes Pain Scale: 0-10 Numeric Is Patient Pain Free? Yes Yes WC - Nurse 3 - General Ulcer D/C NN Start: 06/16/20 08:38 Freq: Status: Active Protocol: Activity Type Activity Date Activity User E-Sign Co-Sign Detail Recorded Client Recorded Date Recorded By Document 06/16/20 09:06 MS [id number] 06/16/20 09:08 MS Document 06/23/20 08:45 KR [id number] 06/23/20 08:47 KR 06/16/20 06/23/20 09:06 08:45 Wound Care Nurse 3 #2 RIGHT MANLEY SUPERIOR CLUSTER -Ulcer Cleansing Rinsed/ Rinsed/ Irrigated with Irrigated with Saline Saline -Foul Odor after Cleansing No No -Primary Dressing Applied Fibracol Plus Fibracol Plus 4x4 4x4 -Primary Dressing Covered/Secured with Dry Gauze, Dry Gauze & Secured with Roll Gauze, Tape Secured with Tape -Fibracol Plus 4x4 1 1 Right -Other pt own double own tube a dye house worker applied Treatment Response Procedure Tolerated Well Vital Signs Blood Pressure (90/60-120/80 mm Hg) 130/89 H Blood Pressure Mean (mm Hg) 102 Source Monitor Position Sitting Blood Pressure Location Right Arm Pain Scale: 0-10 Numeric Is Patient Pain Free? Yes Yes WC - Visit Discharge Discharge Condition Stable Stable Ambulatory Status Ambulatory Ambulatory Transportation Private Auto Clinical Summary of Care Provided Yes Wound debrided: Right manley wound cluster Type of Debridement: Excisional debridement Anesthesia Used: 5% Lidocaine Gel Depth: Down to and including healthy tissue, in the subcutaneous layer Percentage of wound debrided: 100 Instrument Used: 5mm curette Tissue Removed: Fibrin and fat Severity: Fat Layer Exposed Amount of bleeding with debridement: Mild Bleeding Controlled with: Compression and gauze Patient tolerated procedure well Assessment/Plan Active Problems (Last Updated 09/20/17 @ 14:24 by Sue Adkins) Psoriasis (a type of skin inflammation) (Acute) Traumatic open wound of right lower leg with delayed healing (Acute) Nonhealing nonsurgical wound with fat layer exposed (Acute) Non-pressure chronic ulcer right lower leg, limited to breakdown skin (Acute) Assessment: Atrial fib. Long-term use of Coumadin. Nonhealing nonsurgical cluster wound right manley. Chronic nonhealing nonpressure wound right lower manley Plan: Wash leg with Hibiclens apply Fibracol to wound base cover with Adaptic then gauze. Double layer Tubigrip daily. Follow-up in 1 week. Did apply for skin sub-to run through insurance
[2020-06-30 08:24] VITALS: BP 124/82; PULSE 58; TEMP 36.3; BMI 30.7
--- NOTE | 2020-06-30 09:09 | PCM.WC.PN ---
(1) Non-pressure chronic ulcer right lower leg, limited to breakdown skin Status: Acute Code(s): L97.911 - Non-pressure chronic ulcer of unspecified part of right lower leg limited to breakdown of skin (2) Nonhealing nonsurgical wound with fat layer exposed Status: Acute Code(s): T14.8XXA - Other injury of unspecified body region, initial encounter (3) Psoriasis (a type of skin inflammation) Status: Acute Code(s): L40.9 - Psoriasis, unspecified Type of Wound Date of Service: 06/30/20 Chief Complaint: Follow-up right manley traumatic wound History of Wound: 64-year-old white male with history of psoriasis on both shins hit his right leg against a elevator shaft a month prior to his arrival here the first part of March and developed large deep open wounds nonhealing. Patient was seen by his primary doctor and was put on doxycycline and given Silvadene cream for care. Progress of Wound: A chronic greater than 30-day old wound from trauma to the right manley superior wound shows tendon inferior wound has healed. Obtained some x-ray of the tib-fib are negative. He has developed a new open area that started this last week like an abscess and the superior medial manley. We will continue the Fibracol that seems to be healing well. We obtain new cultures and went ahead and start him on metronidazole and cefuroxime going by previous cultures. Skin substitute was denied by his insurance company. Continues to use Fibracol with success no redness no sign of infection still has some undermining on the upper part of the wound that is improving. - Physical Exam Vital Signs Temp Pulse Resp BP 97.4 F L 58 L 16 124/82 H 06/30/20 08:24 06/30/20 08:24 06/23/20 08:19 06/30/20 08:24 General: Oriented x3, Cooperative, Well developed HEENT: Atraumatic, PERRLA Oral: Moist Mucosa Neck: Supple, No JVD Lungs: Clear to auscultation, Normal air movement Cardiovascular: Regular rate, Regular Rhythm Abdomen: Bowel Sounds Present, Soft, Non Tender, No Hepato-splenomegaly Extremities: No clubbing, No edema, - - Superior cluster and a new superior medial wound that opened this past week Wound Measurements and Assessment WC - Nurse 1 - General Ulcer Measurement Start: 06/16/20 08:38 Freq: Status: Active Protocol: Activity Type Activity Date Activity User E-Sign Co-Sign Detail Recorded Client Recorded Date Recorded By Document 06/30/20 08:24 KR [id number] 06/30/20 08:31 KR 06/30/20 08:24 Wound Center Nurse 1 [Ulcer Assessment] #2 RIGHT MANLEY SUPERIOR CLUSTER -Combined with other wound No -Current Size (cm) - Length 5 -Current Size (cm) - Width 2 -Current Size (cm) - Depth 0.3 -Total Square Cm 10 -Photo Taken No -Exudate Amt Small -Exudate Type Serosanguineous -Wound Margin Distinct, Outline Attached -Granulation Amt Small (1-33%) -Granulation Quality [place],Red -Slough/Fibrin Yes -Necrosis Amt Small (1-33%) -Necrotic Tissue Type Adherent Slough -Texture ([place]-wound Skin Appearance) Assessed, Scarring -Moisture ([place]-wound Skin Appearance No Abnormality ) -Color ([place]-wound Skin Appearance) No Abnormality -Temperature ([place]-wound Skin No Abnormality Appearance) (Pt Warm) -Tenderness on Palpation ([place]-wound No Skin Appearance) -Ulcer Cleansing Rinsed/ Irrigated with Saline -Foul Odor after Cleansing No -Anesthetic Used 4% Lidocaine Solution WC - Nurse 2 - General Ulcer CM Notes Start: 06/16/20 08:38 Freq: Status: Active Protocol: Activity Type Activity Date Activity User E-Sign Co-Sign Detail Recorded Client Recorded Date Recorded By Document 06/30/20 08:49 MW [id number] 06/30/20 09:03 MW 06/30/20 08:49 Wound Center Nurse 2 [Procedure/Treatment] #3 right manley superior medial -Time 08:55 -Correct Patient Yes -Correct Side, Site, Position Yes -Correct Procedure Yes -Procedure Performed Yes -Type of Procedure Debridement -Clinical Debridement Subcutaneous -Tissue Removed Subcutaneous -Post Debridement (cm) - Length 0.5 -Post Debridement (cm) - Width 0.5 -Post Debridement (cm) - Depth 0.4 -Total Square (Post) (cm) 0.25 -Area of Debridement (cm) - Length 0.5 -Area of Debridement (cm) - Width 0.5 -Total Square (Area) (cm) 0.25 -Tunneling No -Undermining/Tunneling No -Circular Undermining No -Wound/Ulcer Outcome Not Healed -Ulcer Cleansing Rinsed/ Irrigated with Saline -Foul Odor after Cleansing No -Bioengineered Tissue No -Bleeding Controlled with Pressure -Offloading No -Debridement - Subq, 1st 20sq cm No #2 RIGHT MANLEY SUPERIOR CLUSTER -Time 08:54 -Correct Patient Yes -Correct Side, Site, Position Yes -Correct Procedure Yes -Procedure Performed Yes -Type of Procedure Debridement -Clinical Debridement Subcutaneous -Tissue Removed Subcutaneous -Post Debridement (cm) - Length 4.5 -Post Debridement (cm) - Width 1.0 -Post Debridement (cm) - Depth 0.8 -Total Square (Post) (cm) 4.50 -Area of Debridement (cm) - Length 4.5 -Area of Debridement (cm) - Width 1.0 -Total Square (Area) (cm) 4.50 -Tunneling No -Undermining/Tunneling No -Circular Undermining No -Wound/Ulcer Outcome Not Healed -Ulcer Cleansing Rinsed/ Irrigated with Saline -Foul Odor after Cleansing No -Bioengineered Tissue No -Bleeding Controlled with Pressure -Offloading No -Treatment Response Procedure Tolerated Well -Debridement - Subq, 1st 20sq cm Yes [See Physician Procedure note for Specifics] Pain Scale: 0-10 Numeric [Pain] -Is Patient Pain Free? Yes Musculoskeletal: No Tenderness to Palpation of Joints or Extremities Lymphatic: No Cervical, Supraclavicular, or Inguinal Adenopathy Neurological: Cranial nerves II-XII grossly intact, Neuro grossly intact Psych/Mental Status: Normal Affect, Appropriate Debridement Note Post-Debridement Measurements/Treatment WC - Nurse 2 - General Ulcer CM Notes Start: 06/16/20 08:38 Freq: Status: Active Protocol: Activity Type Activity Date Activity User E-Sign Co-Sign Detail Recorded Client Recorded Date Recorded By Document 06/16/20 08:52 MW [id number] 06/16/20 08:56 MW Document 06/23/20 08:32 MW [id number] 06/23/20 08:38 MW Document 06/30/20 08:49 MW [id number] 06/30/20 09:03 MW 06/16/20 06/23/20 06/30/20 08:52 08:32 08:49 Wound Center Nurse 2 #3 right manley superior medial -Time 08:55 -Correct Patient Yes -Correct Side, Site, Position Yes -Correct Procedure Yes -Procedure Performed Yes -Type of Procedure Debridement -Clinical Debridement Subcutaneous -Tissue Removed Subcutaneous -Post Debridement (cm) - Length 0.5 -Post Debridement (cm) - Width 0.5 -Post Debridement (cm) - Depth 0.4 -Total Square (Post) (cm) 0.25 -Area of Debridement (cm) - Length 0.5 -Area of Debridement (cm) - Width 0.5 -Total Square (Area) (cm) 0.25 -Tunneling No -Undermining/Tunneling No -Circular Undermining No -Wound/Ulcer Outcome Not Healed -Ulcer Cleansing Rinsed/ Irrigated with Saline -Foul Odor after Cleansing No -Bioengineered Tissue No -Bleeding Controlled with Pressure -Offloading No -Debridement - Subq, 1st 20sq cm No #2 RIGHT MANLEY SUPERIOR CLUSTER -Time 08:53 08:33 08:54 -Correct Patient Yes Yes Yes -Correct Side, Site, Position Yes Yes Yes -Correct Procedure Yes Yes Yes -Procedure Performed Yes Yes Yes -Type of Procedure Debridement Debridement Debridement -Clinical Debridement Subcutaneous Subcutaneous Subcutaneous -Tissue Removed Subcutaneous Subcutaneous Subcutaneous -Post Debridement (cm) - Length 5.0 4.8 4.5 -Post Debridement (cm) - Width 2.4 1.0 1.0 -Post Debridement (cm) - Depth 0.3 0.6 0.8 -Total Square (Post) (cm) 12.00 4.80 4.50 -Area of Debridement (cm) - Length 5.0 4.8 4.5 -Area of Debridement (cm) - Width 2.4 1.0 1.0 -Total Square (Area) (cm) 12.00 4.80 4.50 -Tunneling No No No -Undermining/Tunneling No No No -Circular Undermining No No No -Wound/Ulcer Outcome Not Healed Not Healed Not Healed -Ulcer Cleansing Rinsed/ Rinsed/ Rinsed/ Irrigated with Irrigated with Irrigated with Saline Saline Saline -Foul Odor after Cleansing No No No -Bioengineered Tissue No No No -Bleeding Controlled with Pressure Pressure Pressure -Offloading No No No -Treatment Response Procedure Procedure Procedure Tolerated Well Tolerated Well Tolerated Well -Debridement - Subq, 1st 20sq cm Yes Yes Yes Pain Scale: 0-10 Numeric Is Patient Pain Free? Yes Yes Yes WC - Nurse 3 - General Ulcer D/C NN Start: 06/16/20 08:38 Freq: Status: Active Protocol: Activity Type Activity Date Activity User E-Sign Co-Sign Detail Recorded Client Recorded Date Recorded By Document 06/16/20 09:06 MS [id number] 06/16/20 09:08 MS Document 06/23/20 08:45 [email or web address] [id number] 06/23/20 08:47 KR 06/16/20 06/23/20 09:06 08:45 Wound Care Nurse 3 #2 RIGHT MANLEY SUPERIOR CLUSTER -Ulcer Cleansing Rinsed/ Rinsed/ Irrigated with Irrigated with Saline Saline -Foul Odor after Cleansing No No -Primary Dressing Applied Fibracol Plus Fibracol Plus 4x4 4x4 -Primary Dressing Covered/Secured with Dry Gauze, Dry Gauze & Secured with Roll Gauze, Tape Secured with Tape -Fibracol Plus 4x4 1 1 Right -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 Yes Yes WC - Visit Discharge Discharge Condition Stable Stable Ambulatory Status Ambulatory Ambulatory Transportation Private Auto Clinical Summary of Care Provided Yes Wound debrided: Superior cluster wound Type of Debridement: Excisional debridement Anesthesia Used: 5% Lidocaine Gel Depth: Down to and including healthy tissue, in the subcutaneous layer Percentage of wound debrided: 100 Instrument Used: 5mm curette Tissue Removed: Fat and slough Severity: Fat Layer Exposed Amount of bleeding with debridement: Mild Bleeding Controlled with: Compression and gauze Patient tolerated procedure well - Additional Wound Wound debrided: Superior medial wound Laterality: Right Type of Debridement: Excisional debridement Anesthesia Used: 5% Lidocaine Gel Depth: Down to and including healthy tissue, in the subcutaneous layer, to muscle Percentage of wound debrided: 100 Instrument Used: 5mm curette Tissue Removed: Blood fibrin fat Severity: Fat Layer Exposed Amount of bleeding with debridement: Mild Bleeding Controlled with: Compression and gauze Patient tolerated procedure: Patient tolerated procedure well Assessment/Plan Aerobic and anaerobic cultures obtained Active Problems (Last Updated 09/20/17 @ 14:24 by Sue Adkins) Psoriasis (a type of skin inflammation) (Acute) Traumatic open wound of right lower leg with delayed healing (Acute) Nonhealing nonsurgical wound with fat layer exposed (Acute) Non-pressure chronic ulcer right lower leg, limited to breakdown skin (Acute) Assessment: Atrial fib. Long-term use of Coumadin. Nonhealing nonsurgical cluster wound right manley. Chronic nonhealing nonpressure wound right lower manley Plan: Wash leg with Hibiclens apply Fibracol to wound base cover with Adaptic then gauze. Aerobic and anaerobic cultures obtained will call with results. Start metronidazole 250 p.o. 3 times daily for 14 days #42. Start cefuroxime 500 mg p.o. twice daily for 14 days #42. Double layer Tubigrip daily. Follow-up in 1 week. Did apply for skin sub-to run through insurance
[2020-07-07 08:18] VITALS: BP 145/77; TEMP 36.3; BMI 30.7
--- NOTE | 2020-07-07 10:32 | PCM.WC.PN ---
(1) Non-pressure chronic ulcer right lower leg, limited to breakdown skin Status: Acute Code(s): L97.911 - Non-pressure chronic ulcer of unspecified part of right lower leg limited to breakdown of skin (2) Nonhealing nonsurgical wound with fat layer exposed Status: Acute Code(s): T14.8XXA - Other injury of unspecified body region, initial encounter (3) Psoriasis (a type of skin inflammation) Status: Acute Code(s): L40.9 - Psoriasis, unspecified (4) Infected open wound Status: Acute Code(s): T14.8XXA - Other injury of unspecified body region, initial encounter; L08.9 - Local infection of the skin and subcutaneous tissue, unspecified Type of Wound Date of Service: 07/07/20 Chief Complaint: Follow-up right manley traumatic wound History of Wound: 64-year-old white male with history of psoriasis on both shins hit his right leg against a elevator shaft a month prior to his arrival here the first part of March and developed large deep open wounds nonhealing. Patient was seen by his primary doctor and was put on doxycycline and given Silvadene cream for care. Progress of Wound: A chronic greater than 30-day old wound from trauma to the right manley superior wound shows tendon inferior wound has healed. Obtained some x-ray of the tib-fib are negative. He has developed a new open area that started this last week like an abscess and the superior medial manley. Culture showed 6 different bacteria is gone with an anaerobe. We will continue the Fibracol that seems to be healing well. We obtain new cultures and went ahead and start him on metronidazole and cefuroxime going by previous cultures. We chose wisely and will add linezolid also for his antibiotic. Skin substitute was denied by his insurance company. Continues to use Fibracol with success no redness no sign of infection still has some undermining on the upper part of the wound that is improving. - Physical Exam Vital Signs Temp Pulse Resp BP 97.3 F L 58 L 16 145/77 H 07/07/20 08:18 06/30/20 08:24 06/23/20 08:19 07/07/20 08:18 General: Oriented x3, Cooperative, Well developed HEENT: Atraumatic, PERRLA Oral: Moist Mucosa Neck: Supple, No JVD Lungs: Clear to auscultation, Normal air movement Cardiovascular: Regular rate, Regular Rhythm Abdomen: Bowel Sounds Present, Soft, Non Tender, No Hepato-splenomegaly Extremities: No clubbing, No edema, - - Right manley cluster Wound Measurements and Assessment WC - Nurse 1 - General Ulcer Measurement Start: 06/16/20 08:38 Freq: Status: Active Protocol: Activity Type Activity Date Activity User E-Sign Co-Sign Detail Recorded Client Recorded Date Recorded By Document 07/07/20 08:18 [email or web address] [id number] 07/07/20 08:26 [email or web address] 07/07/20 08:18 Wound Center Nurse 1 [Ulcer Assessment] #3 right manley superior medial -Current Size (cm) - Length 2.1 -Current Size (cm) - Width 0.7 -Current Size (cm) - Depth 0.1 -Total Square Cm 1.47 -Exudate Amt Small -Exudate Type Serosanguineous -Wound Margin Distinct, Outline Attached -Granulation Amt Small (1-33%) -Granulation Quality Red -Slough/Fibrin Yes -Necrosis Amt Small (1-33%) -Necrotic Tissue Type Adherent Slough -Texture (Sowmya-wound Skin Appearance) Assessed, Scarring -Moisture (Sowmya-wound Skin Appearance No Abnormality, ) Assessed -Color (Sowmya-wound Skin Appearance) No Abnormality, Assessed -Temperature (Sowmy[place]-wound Skin No Abnormality Appearance) (Pt Warm) -Tenderness on Palpation (Sowmya-wound No Skin Appearance) -Ulcer Cleansing Rinsed/ Irrigated with Saline -Foul Odor after Cleansing No -Anesthetic Used 4% Lidocaine Solution #2 RIGHT MANLEY SUPERIOR CLUSTER -Current Size (cm) - Length 2.1 -Current Size (cm) - Width 0.6 -Current Size (cm) - Depth 0.2 -Total Square Cm 1.26 -Exudate Amt Small -Exudate Type Serosanguineous -Wound Margin Distinct, Outline Attached -Granulation Amt Small (1-33%) -Granulation Quality Red -Necrosis Amt Small (1-33%) -Necrotic Tissue Type Adherent Slough -Texture (Sowmya-wound Skin Appearance) Assessed, Scarring -Moisture (S[place]my[place]-wound Skin Appearance No Abnormality, ) Assessed -Color (Sowmya-wound Skin Appearance) No Abnormality, Assessed -Temperature (Sowmy[place]-wound Skin No Abnormality Appearance) (Pt Warm) -Tenderness on Palpation (Sowmya-wound No Skin Appearance) -Ulcer Cleansing Rinsed/ Irrigated with Saline -Foul Odor after Cleansing No -Anesthetic Used 4% Lidocaine Solution WC - Nurse 2 - General Ulcer CM Notes Start: 06/16/20 08:38 Freq: Status: Active Protocol: Activity Type Activity Date Activity User E-Sign Co-Sign Detail Recorded Client Recorded Date Recorded By Document 07/07/20 08:38 MW [id number] 07/07/20 08:44 MW 07/07/20 08:38 Wound Center Nurse 2 [Procedure/Treatment] #3 right manley superior medial -Time 08:43 -Correct Patient Yes -Correct Side, Site, Position Yes -Correct Procedure Yes -Procedure Performed Yes -Type of Procedure Debridement -Clinical Debridement Subcutaneous -Tissue Removed Subcutaneous -Post Debridement (cm) - Length 0.5 -Post Debridement (cm) - Width 0.5 -Post Debridement (cm) - Depth 0.3 -Total Square (Post) (cm) 0.25 -Area of Debridement (cm) - Length 0.5 -Area of Debridement (cm) - Width 0.5 -Total Square (Area) (cm) 0.25 -Tunneling No -Undermining/Tunneling No -Circular Undermining No -Wound/Ulcer Outcome Not Healed -Ulcer Cleansing Rinsed/ Irrigated with Saline -Foul Odor after Cleansing No -Bioengineered Tissue No -Bleeding Controlled with Pressure -Offloading No -Debridement - Subq, 1st 20sq cm Yes #2 RIGHT MANLEY SUPERIOR CLUSTER -Time 08:43 -Correct Patient Yes -Correct Side, Site, Position Yes -Correct Procedure Yes -Procedure Performed Yes -Type of Procedure Debridement -Clinical Debridement Subcutaneous -Tissue Removed Subcutaneous -Post Debridement (cm) - Length 4.0 -Post Debridement (cm) - Width 2.3 -Post Debridement (cm) - Depth 0.5 -Total Square (Post) (cm) 9.20 -Area of Debridement (cm) - Length 4.0 -Area of Debridement (cm) - Width 2.3 -Total Square (Area) (cm) 9.20 -Tunneling No -Undermining/Tunneling No -Circular Undermining No -Wound/Ulcer Outcome Not Healed -Ulcer Cleansing Rinsed/ Irrigated with Saline -Foul Odor after Cleansing No -Bioengineered Tissue No -Bleeding Controlled with Pressure -Offloading No -Debridement - Subq, 1st 20sq cm No [See Physician Procedure note for Specifics] Pain Scale: 0-10 Numeric [Pain] -Is Patient Pain Free? Yes WC - Nurse 3 - General Ulcer D/C NN Start: 06/16/20 08:38 Freq: Status: Active Protocol: Activity Type Activity Date Activity User E-Sign Co-Sign Detail Recorded Client Recorded Date Recorded By Document 07/07/20 09:07 MT [id number] 07/07/20 09:08 LA 07/07/20 09:07 Wound Care Nurse 3 [Wound Dressing] #3 right manley superior medial -Primary Dressing Applied Fibracol Plus 4x4 -Primary Dressing Covered/Secured Dry Gauze, with Secured with Tape -Fibracol Plus 4x4 1 #2 RIGHT MANLEY SUPERIOR CLUSTER -Primary Dressing Covered/Secured Dry Gauze, with Secured with Tape [Compression Applied] Right -Multi-Layered Wrap Application Multi-Layer Comp - Right ($ ) -Tubular Bandage Double Layer -Size of Tubigrip Used Size E -Size E ($) 2 - Visit Discharge [Visit Discharge Information] -Discharge Condition Stable -Ambulatory Status Ambulatory -Transportation Private Auto -Medication Reconcilliation completed No & provided to patient/care provider -Clinical Summary of Care Provided Yes -Notes: how to dress wound Musculoskeletal: No Tenderness to Palpation of Joints or Extremities Lymphatic: No Cervical, Supraclavicular, or Inguinal Adenopathy Neurological: Cranial nerves II-XII grossly intact, Neuro grossly intact Psych/Mental Status: Normal Affect, Appropriate Debridement Note Post-Debridement Measurements/Treatment JOANN - Nurse 2 - General Ulcer CM Notes Start: 06/16/20 08:38 Freq: Status: Active Protocol: Activity Type Activity Date Activity User E-Sign Co-Sign Detail Recorded Client Recorded Date Recorded By Document 06/16/20 08:52 MW [id number] 06/16/20 08:56 MW Document 06/23/20 08:32 MW [id number] 06/23/20 08:38 MW Document 06/30/20 08:49 MW [id number] 06/30/20 09:03 MW Document 07/07/20 08:38 MW [id number] 07/07/20 08:44 MW 06/16/20 06/23/20 06/30/20 08:52 08:32 08:49 Wound Center Nurse 2 #3 right manley superior medial -Time 08:55 -Correct Patient Yes -Correct Side, Site, Position Yes -Correct Procedure Yes -Procedure Performed Yes -Type of Procedure Debridement -Clinical Debridement Subcutaneous -Tissue Removed Subcutaneous -Post Debridement (cm) - Length 0.5 -Post Debridement (cm) - Width 0.5 -Post Debridement (cm) - Depth 0.4 -Total Square (Post) (cm) 0.25 -Area of Debridement (cm) - Length 0.5 -Area of Debridement (cm) - Width 0.5 -Total Square (Area) (cm) 0.25 -Tunneling No -Undermining/Tunneling No -Circular Undermining No -Wound/Ulcer Outcome Not Healed -Ulcer Cleansing Rinsed/ Irrigated with Saline -Foul Odor after Cleansing No -Bioengineered Tissue No -Bleeding Controlled with Pressure -Offloading No -Debridement - Subq, 1st 20sq cm No #2 RIGHT MANLEY SUPERIOR CLUSTER -Time 08:53 08:33 08:54 -Correct Patient Yes Yes Yes -Correct Side, Site, Position Yes Yes Yes -Correct Procedure Yes Yes Yes -Procedure Performed Yes Yes Yes -Type of Procedure Debridement Debridement Debridement -Clinical Debridement Subcutaneous Subcutaneous Subcutaneous -Tissue Removed Subcutaneous Subcutaneous Subcutaneous -Post Debridement (cm) - Length 5.0 4.8 4.5 -Post Debridement (cm) - Width 2.4 1.0 1.0 -Post Debridement (cm) - Depth 0.3 0.6 0.8 -Total Square (Post) (cm) 12.00 4.80 4.50 -Area of Debridement (cm) - Length 5.0 4.8 4.5 -Area of Debridement (cm) - Width 2.4 1.0 1.0 -Total Square (Area) (cm) 12.00 4.80 4.50 -Tunneling No No No -Undermining/Tunneling No No No -Circular Undermining No No No -Wound/Ulcer Outcome Not Healed Not Healed Not Healed -Ulcer Cleansing Rinsed/ Rinsed/ Rinsed/ Irrigated with Irrigated with Irrigated with Saline Saline Saline -Foul Odor after Cleansing No No No -Bioengineered Tissue No No No -Bleeding Controlled with Pressure Pressure Pressure -Offloading No No No -Treatment Response Procedure Procedure Procedure Tolerated Well Tolerated Well Tolerated Well -Debridement - Subq, 1st 20sq cm Yes Yes Yes Pain Scale: 0-10 Numeric Is Patient Pain Free? Yes Yes Yes 07/07/20 08:38 Wound Center Nurse 2 #3 right manley superior medial -Time 08:43 -Correct Patient Yes -Correct Side, Site, Position Yes -Correct Procedure Yes -Procedure Performed Yes -Type of Procedure Debridement -Clinical Debridement Subcutaneous -Tissue Removed Subcutaneous -Post Debridement (cm) - Length 0.5 -Post Debridement (cm) - Width 0.5 -Post Debridement (cm) - Depth 0.3 -Total Square (Post) (cm) 0.25 -Area of Debridement (cm) - Length 0.5 -Area of Debridement (cm) - Width 0.5 -Total Square (Area) (cm) 0.25 -Tunneling No -Undermining/Tunneling No -Circular Undermining No -Wound/Ulcer Outcome Not Healed -Ulcer Cleansing Rinsed/ Irrigated with Saline -Foul Odor after Cleansing No -Bioengineered Tissue No -Bleeding Controlled with Pressure -Offloading No -Debridement - Subq, 1st 20sq cm Yes #2 RIGHT MANLEY SUPERIOR CLUSTER -Time 08:43 -Correct Patient Yes -Correct Side, Site, Position Yes -Correct Procedure Yes -Procedure Performed Yes -Type of Procedure Debridement -Clinical Debridement Subcutaneous -Tissue Removed Subcutaneous -Post Debridement (cm) - Length 4.0 -Post Debridement (cm) - Width 2.3 -Post Debridement (cm) - Depth 0.5 -Total Square (Post) (cm) 9.20 -Area of Debridement (cm) - Length 4.0 -Area of Debridement (cm) - Width 2.3 -Total Square (Area) (cm) 9.20 -Tunneling No -Undermining/Tunneling No -Circular Undermining No -Wound/Ulcer Outcome Not Healed -Ulcer Cleansing Rinsed/ Irrigated with Saline -Foul Odor after Cleansing No -Bioengineered Tissue No -Bleeding Controlled with Pressure -Offloading No -Treatment Response -Debridement - Subq, 1st 20sq cm No Pain Scale: 0-10 Numeric Is Patient Pain Free? Yes WC - Nurse 3 - General Ulcer D/C NN Start: 06/16/20 08:38 Freq: Status: Active Protocol: Activity Type Activity Date Activity User E-Sign Co-Sign Detail Recorded Client Recorded Date Recorded By Document 06/16/20 09:06 MS [id number] 06/16/20 09:08 MS Document 06/23/20 08:45 [id number] 06/23/20 08:47 KR Document 06/30/20 09:18 KR [id number] 06/30/20 09:19 KR Document 07/07/20 09:07 LA [id number] 07/07/20 09:08 LA 06/16/20 06/23/20 06/30/20 09:06 08:45 09:18 Wound Care Nurse 3 #3 right manley superior medial -Ulcer Cleansing Rinsed/ Irrigated with Saline -Foul Odor after Cleansing No -Primary Dressing Applied Fibracol Plus 4x4 -Primary Dressing Covered/Secured with Dry Gauze -Fibracol Plus 4x4 1 #2 RIGHT MANLEY SUPERIOR CLUSTER -Ulcer Cleansing Rinsed/ Rinsed/ Rinsed/ Irrigated with Irrigated with Irrigated with Saline Saline Saline -Foul Odor after Cleansing No No No -Negative Pressure Wound Therapy N/A -Primary Dressing Applied Fibracol Plus Fibracol Plus 4x4 4x4 -Primary Dressing Covered/Secured with Dry Gauze, Dry Gauze & Secured with Roll Gauze, Tape Secured with Tape -Fibracol Plus 4x4 1 1 Right -Multi-Layered Wrap Application -Tubular Bandage -Size of Tubigrip Used -Size E ($) -Other pt own double own tube a auditing clerk applied Treatment Response Procedure Tolerated Well Vital Signs Blood Pressure (90/60-120/80 mm Hg) 130/89 H Blood Pressure Mean (mm Hg) 102 Source Monitor Position Sitting Blood Pressure Location Right Arm Pain Scale: 0-10 Numeric Is Patient Pain Free? Yes Yes Yes WC - Visit Discharge Discharge Condition Stable Stable Stable Ambulatory Status Ambulatory Ambulatory Ambulatory Transportation Private Auto Private Auto Medication Reconcilliation completed & provided to patient/care provider Clinical Summary of Care Provided Yes Notes: 07/07/20 09:07 Wound Care Nurse 3 #3 right manley superior medial -Ulcer Cleansing -Foul Odor after Cleansing -Primary Dressing Applied Fibracol Plus 4x4 -Primary Dressing Covered/Secured with Dry Gauze, Secured with Tape -Fibracol Plus 4x4 1 #2 RIGHT MANLEY SUPERIOR CLUSTER -Ulcer Cleansing -Foul Odor after Cleansing -Negative Pressure Wound Therapy -Primary Dressing Applied -Primary Dressing Covered/Secured with Dry Gauze, Secured with Tape -Fibracol Plus 4x4 Right -Multi-Layered Wrap Application Multi-Layer Comp - Right ($ ) -Tubular Bandage Double Layer -Size of Tubigrip Used Size E -Size E ($) 2 -Other Treatment Response Vital Signs Blood Pressure (90/60-120/80 mm Hg) Blood Pressure Mean (mm Hg) Source Position Blood Pressure Location Pain Scale: 0-10 Numeric Is Patient Pain Free? WC - Visit Discharge Discharge Condition Stable Ambulatory Status Ambulatory Transportation Private Auto Medication Reconcilliation completed & No provided to patient/care provider Clinical Summary of Care Provided Yes Notes: how to dress wound Wound debrided: Right superior manley cluster Type of Debridement: Excisional debridement Anesthesia Used: 5% Lidocaine Gel Depth: Down to and including healthy tissue Percentage of wound debrided: 100 Instrument Used: 7mm curette Tissue Removed: Slough Severity: Fat Layer Exposed Amount of bleeding with debridement: Mild Bleeding Controlled with: Pressure, Compression and gauze Patient tolerated procedure well - Additional Wound Wound debrided: Superior medial manley Laterality: Right Type of Debridement: Excisional debridement Anesthesia Used: 5% Lidocaine Gel Depth: Down to and including healthy tissue, in the subcutaneous layer, to muscle Percentage of wound debrided: 100 Instrument Used: 5mm curette Tissue Removed: Slough Severity: Limited To Skin Breakdown Amount of bleeding with debridement: Mild Bleeding Controlled with: Compression and gauze Patient tolerated procedure: Patient tolerated procedure well Assessment/Plan Active Problems (Last Updated 09/20/17 @ 14:24 by Sue Adkins) Psoriasis (a type of skin inflammation) (Acute) Traumatic open wound of right lower leg with delayed healing (Acute) Nonhealing nonsurgical wound with fat layer exposed (Acute) Non-pressure chronic ulcer right lower leg, limited to breakdown skin (Acute) Assessment: Atrial fib. Long-term use of Coumadin. Nonhealing nonsurgical cluster wound right manley. Chronic nonhealing nonpressure wound right lower manley Plan: Wash leg with Hibiclens apply Fibracol to wound base cover with Adaptic then gauze. Continue metronidazole 250 p.o. 3 times daily for 14 days #42. Continue cefuroxime 500 mg p.o. twice daily for 14 days #42. Linezolid 600 mg 1 p.o. twice daily x14 days. Double layer Tubigrip daily. Follow-up in 1 week. Did apply for skin sub-to run through insurance
== END 2020-07-12 23:59 ==
LOC: WC 08:15
PROVIDERS: PCP Family Medicine; Referring Provider Family Medicine; Visit Provider Nurse Practitioner
DX: L97.812 Non-pressure chronic ulcer of other part of right lower leg with fat layer exposed (principal); L97.811 Non-pressure chronic ulcer of other part of right lower leg limited to breakdown of skin; L40.9 Psoriasis, unspecified; I48.91 Unspecified atrial fibrillation; Z79.01 Long term (current) use of anticoagulants
CPT/HCPCS: 11042; 29581; 87070; 87075; 87077; 87186; 87205

== ENCOUNTER → 2020-07-30 15:31 | Outpatient (CLI) | payer BC, SELFPAY ==
[2020-07-28 08:22] VITALS: BMI 30.7
--- NOTE | 2020-07-30 15:37 | RAD_ITS ---
STUDY: X-RAY - RIGHT HAND, ATTENTION 3 FINGER REASON FOR EXAM: Male, 64 years old. 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 TECHNIQUE: 3 view(s) of the finger were obtained. COMPARISON: None. FINDINGS: Normal metacarpal head. Normal metacarpophalangeal joint. Normal proximal phalanx. Normal middle phalanx. Normal distal phalanx. 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 There is mild degenerative arthrosis of the distal interphalangeal joint. 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 Electronically Signed: Bobo Roblero MD at 15:50 EST Tel , Service support ,
== END ==
PROVIDERS: PCP Family Medicine; Referring Provider Family Medicine; Visit Provider Family Medicine
DX: M25.541 Pain in joints of right hand (principal)
CPT/HCPCS: 73140

== ENCOUNTER 2020-08-11 08:00 | Outpatient (RCR) | payer BC, SELFPAY ==
[2020-07-13 00:33] VITALS: BP 145/77; PULSE 58; RESP 16; TEMP 36.3
[2020-07-14 08:09] VITALS: BP 161/85; PULSE 68; RESP 16; TEMP 35.9; BMI 30.7
--- NOTE | 2020-07-14 08:36 | PCM.WC.PN ---
(1) Infected open wound Status: Acute Code(s): T14.8XXA - Other injury of unspecified body region, initial encounter; L08.9 - Local infection of the skin and subcutaneous tissue, unspecified (2) Non-pressure chronic ulcer right lower leg, limited to breakdown skin Status: Acute Code(s): L97.911 - Non-pressure chronic ulcer of unspecified part of right lower leg limited to breakdown of skin (3) Nonhealing nonsurgical wound with fat layer exposed Status: Acute Code(s): T14.8XXA - Other injury of unspecified body region, initial encounter (4) Psoriasis (a type of skin inflammation) Status: Acute Code(s): L40.9 - Psoriasis, unspecified Type of Wound Date of Service: 07/14/20 Chief Complaint: Follow-up right manley traumatic wound History of Wound: 64-year-old white male with history of psoriasis on both shins hit his right leg against a elevator shaft a month prior to his arrival here the first part of March and developed large deep open wounds nonhealing. Patient was seen by his primary doctor and was put on doxycycline and given Silvadene cream for care. Progress of Wound: A chronic greater than 30-day old wound from trauma to the right manley superior wound shows tendon inferior wound has healed. Obtained some x-ray of the tib-fib are negative. He has developed a new open area that started this last week like an abscess and the superior medial manley. Culture showed 6 different bacteria is gone with an anaerobe. We will continue the Fibracol that seems to be healing well. We obtain new cultures and went ahead and start him on metronidazole and cefuroxime going by previous cultures. We chose wisely and will add linezolid also for his antibiotic. Skin substitute was denied by his insurance company. Continues to use Fibracol with success no redness no sign of infection still has some undermining on the upper part of the wound that is improving. - Physical Exam Vital Signs Temp Pulse Resp BP 96.6 F L 68 16 161/85 H 07/14/20 08:09 07/14/20 08:09 07/14/20 08:09 07/14/20 08:09 General: Oriented x3, Cooperative, Well developed HEENT: Atraumatic, PERRLA Oral: Moist Mucosa Neck: Supple, No JVD Lungs: Clear to auscultation, Normal air movement Cardiovascular: Regular rate, Regular Rhythm Abdomen: Bowel Sounds Present, Soft, Non Tender, No Hepato-splenomegaly Extremities: No clubbing, No edema Wound Measurements and Assessment WC - Nurse 1 - General Ulcer Measurement Start: 07/14/20 08:09 Freq: Status: Active Protocol: Activity Type Activity Date Activity User E-Sign Co-Sign Detail Recorded Client Recorded Date Recorded By Document 07/14/20 08:09 [facility] [id number] 07/14/20 08:16 [facility] 07/14/20 08:09 Wound Center Nurse 1 [Ulcer Assessment] #3 right manley superior medial -Combined with other wound No -Current Size (cm) - Length 0.4 -Current Size (cm) - Width 0.4 -Current Size (cm) - Depth 0.3 -Total Square Cm 0.16 -Photo Taken No -Epithelialization None Present -Tunneling No -Undermining/Tunneling No -Circular Undermining No -Exudate Amt Medium -Exudate Type Serosanguineous -Wound Margin Distinct, Outline Attached -Granulation Amt None Present (0 %) -Slough/Fibrin Yes -Necrosis Amt Large (67-100%) -Necrotic Tissue Type Adherent Slough -Texture (Sowmya-wound Skin Appearance) Assessed, Scarring -Moisture (S[place]my[place]-wound Skin Appearance Assessed ) -Color (Sowmya-wound Skin Appearance) Assessed -Temperature (S[place]my[place]-wound Skin No Abnormality Appearance) (Pt Warm) -Tenderness on Palpation (Sowmy[place]-wound No Skin Appearance) -Ulcer Cleansing Rinsed/ Irrigated with Saline -Foul Odor after Cleansing No -Anesthetic Used 4% Lidocaine Solution #2 RIGHT MANLEY SUPERIOR CLUSTER -Combined with other wound No -Current Size (cm) - Length 4.3 -Current Size (cm) - Width 1.8 -Current Size (cm) - Depth 0.5 -Total Square Cm 7.74 -Photo Taken No -Epithelialization None Present -Tunneling No -Undermining/Tunneling No -Circular Undermining No -Exudate Amt Medium -Exudate Type Serosanguineous -Wound Margin Distinct, Outline Attached -Granulation Amt None Present (0 %) -Slough/Fibrin Yes -Necrosis Amt Large (67-100%) -Necrotic Tissue Type Adherent Slough -Texture (Sowmya-wound Skin Appearance) Assessed, Scarring -Moisture (Sowmya-wound Skin Appearance Assessed ) -Color (Sowmya-wound Skin Appearance) Assessed -Temperature (S[place]my[place]-wound Skin No Abnormality Appearance) (Pt Warm) -Tenderness on Palpation (Sowmya-wound No Skin Appearance) -Ulcer Cleansing Rinsed/ Irrigated with Saline -Foul Odor after Cleansing No -Anesthetic Used 4% Lidocaine Solution [Edema Assessment] -Lower Limb Edema Present Yes -Right Calf (cm) 40.8 -Right Ankle (cm) 23 Musculoskeletal: No Tenderness to Palpation of Joints or Extremities Lymphatic: No Cervical, Supraclavicular, or Inguinal Adenopathy Neurological: Cranial nerves II-XII grossly intact, Neuro grossly intact Psych/Mental Status: Normal Affect, Appropriate, Alert and oriented to time, place, person, mood and affect Debridement Note Wound debrided: Right manley cluster Type of Debridement: Excisional debridement Anesthesia Used: 5% Lidocaine Gel Depth: Down to and including healthy tissue Percentage of wound debrided: 100 Instrument Used: 3mm curette Tissue Removed: Slough and fibrin Severity: Fat Layer Exposed Amount of bleeding with debridement: Mild Bleeding Controlled with: Compression and gauze Patient tolerated procedure well - Additional Wound Wound debrided: Superior right medial manley Type of Debridement: Excisional debridement Anesthesia Used: 5% Lidocaine Gel Depth: Down to and including healthy tissue, in the subcutaneous layer Percentage of wound debrided: 100 Instrument Used: 3mm curette Tissue Removed: Slough and fibrin Severity: Limited To Skin Breakdown Amount of bleeding with debridement: Mild Patient tolerated procedure: Patient tolerated procedure well Assessment/Plan Assessment: Atrial fib. Long-term use of Coumadin. Nonhealing nonsurgical cluster wound right manley. Chronic nonhealing nonpressure wound right lower manley Plan: Wash leg with Hibiclens apply Fibracol to wound base cover with Adaptic then gauze. Finish metronidazole 250 p.o. 3 times daily for 14 days #42. Finish cefuroxime 500 mg p.o. twice daily for 14 days #42. Finish Linezolid 600 mg 1 p.o. twice daily x14 days. Double layer Tubigrip daily. Follow-up in 1 week. Did apply for skin sub-to run through insurance
[2020-07-21 08:23] VITALS: BP 156/87; PULSE 68; TEMP 36.2; BMI 30.7
--- NOTE | 2020-07-21 08:41 | PCM.WC.PN ---
(1) Infected open wound Status: Acute Code(s): T14.8XXA - Other injury of unspecified body region, initial encounter; L08.9 - Local infection of the skin and subcutaneous tissue, unspecified (2) Non-pressure chronic ulcer right lower leg, limited to breakdown skin Status: Acute Code(s): L97.911 - Non-pressure chronic ulcer of unspecified part of right lower leg limited to breakdown of skin (3) Nonhealing nonsurgical wound with fat layer exposed Status: Acute Code(s): T14.8XXA - Other injury of unspecified body region, initial encounter (4) Psoriasis (a type of skin inflammation) Status: Acute Code(s): L40.9 - Psoriasis, unspecified Type of Wound Date of Service: 07/21/20 Chief Complaint: Follow-up right manley traumatic wound History of Wound: 64-year-old white male with history of psoriasis on both shins hit his right leg against a elevator shaft a month prior to his arrival here the first part of March and developed large deep open wounds nonhealing. Patient was seen by his primary doctor and was put on doxycycline and given Silvadene cream for care. Progress of Wound: A chronic greater than 30-day old wound from trauma to the right manley superior wound shows tendon inferior wound has healed. Obtained some x-ray of the tib-fib are negative. He has developed a new open area that started this last week like an abscess and the superior medial manley. Culture showed 6 different bacteria is gone with an anaerobe. We will stop the Fibracol and try Proomogran . Has finished his last antibiotic yesterday. Skin substitute was denied by his insurance company. - Physical Exam Vital Signs Temp Pulse Resp BP 97.2 F L 68 16 156/87 H 07/21/20 08:23 07/21/20 08:23 07/14/20 08:09 07/21/20 08:23 General: Oriented x3, Cooperative, Well developed HEENT: Atraumatic, PERRLA Oral: Moist Mucosa Neck: Supple, No JVD Lungs: Clear to auscultation, Normal air movement Cardiovascular: Regular rate, Regular Rhythm Abdomen: Bowel Sounds Present, Soft, Non Tender, No Hepato-splenomegaly Extremities: No clubbing, No edema Wound Measurements and Assessment WC - Nurse 1 - General Ulcer Measurement Start: 07/14/20 08:09 Freq: Status: Active Protocol: Activity Type Activity Date Activity User E-Sign Co-Sign Detail Recorded Client Recorded Date Recorded By Document 07/21/20 08:23 [email or web address] [id number] 07/21/20 08:28 [email or web address] 07/21/20 08:23 Wound Center Nurse 1 [Ulcer Assessment] #3 right manley superior medial -Current Size (cm) - Length 4.5 -Current Size (cm) - Width 0.9 -Current Size (cm) - Depth 0.4 -Total Square Cm 4.05 -Change in Wound Grade/Stage No Query Text:If change please identify the Stage/Grade in the comment (ie. S2 G3) -Exudate Amt None Present -Wound Margin Distinct, Outline Attached -Granulation Amt None Present (0 %) -Necrosis Amt None Present (0 %) -Texture ([place]-wound Skin Appearance) Assessed, Scarring -Moisture ([place]-wound Skin Appearance No Abnormality ) -Color ([place]-wound Skin Appearance) No Abnormality -Temperature ([place]-wound Skin No Abnormality Appearance) (Pt Warm) -Tenderness on Palpation ([place]-wound No Skin Appearance) -Ulcer Cleansing Rinsed/ Irrigated with Saline -Foul Odor after Cleansing No -Anesthetic Used 4% Lidocaine Solution #2 RIGHT MANLEY SUPERIOR CLUSTER -Current Size (cm) - Length 1.2 -Current Size (cm) - Width 1 -Current Size (cm) - Depth 0.1 -Total Square Cm 1.2 -Exudate Amt None Present -Wound Margin Distinct, Outline Attached -Granulation Amt None Present (0 %) -Necrosis Amt None Present (0 %) -Texture ([place]-wound Skin Appearance) Assessed,Rash -Moisture ([place]-wound Skin Appearance No Abnormality, ) Assessed -Color ([place]-wound Skin Appearance) No Abnormality, Assessed -Temperature ([place]-wound Skin No Abnormality Appearance) (Pt Warm) -Tenderness on Palpation ([place]-wound No Skin Appearance) -Ulcer Cleansing Rinsed/ Irrigated with Saline -Foul Odor after Cleansing No -Anesthetic Used 4% Lidocaine Solution [Edema Assessment] -Right Calf (cm) 22.7 -Right Ankle (cm) 40 WC - Nurse 2 - General Ulcer CM Notes Start: 07/14/20 08:09 Freq: Status: Active Protocol: Activity Type Activity Date Activity User E-Sign Co-Sign Detail Recorded Client Recorded Date Recorded By Document 07/21/20 08:31 MW [id number] 07/21/20 08:36 MW 07/21/20 08:31 Wound Center Nurse 2 [Procedure/Treatment] #3 right manley superior medial -Time 08:33 -Correct Patient Yes -Correct Side, Site, Position Yes -Correct Procedure Yes -Procedure Performed Yes -Type of Procedure Debridement -Clinical Debridement Subcutaneous -Tissue Removed Subcutaneous -Post Debridement (cm) - Length 0.4 -Post Debridement (cm) - Width 0.4 -Post Debridement (cm) - Depth 0.4 -Total Square (Post) (cm) 0.16 -Area of Debridement (cm) - Length 0.4 -Area of Debridement (cm) - Width 0.4 -Total Square (Area) (cm) 0.16 -Tunneling No -Undermining/Tunneling No -Circular Undermining No -Wound/Ulcer Outcome Not Healed -Ulcer Cleansing Rinsed/ Irrigated with Saline -Foul Odor after Cleansing No -Bioengineered Tissue No -Bleeding Controlled with Pressure -Offloading No -Treatment Response Procedure Tolerated Well -Debridement - Subq, 1st 20sq cm Yes #2 RIGHT MANLEY SUPERIOR CLUSTER -Time 08:34 -Correct Patient Yes -Correct Side, Site, Position Yes -Correct Procedure Yes -Procedure Performed Yes -Type of Procedure Debridement -Clinical Debridement Subcutaneous -Tissue Removed Subcutaneous -Post Debridement (cm) - Length 4.1 -Post Debridement (cm) - Width 1.0 -Post Debridement (cm) - Depth 0.4 -Total Square (Post) (cm) 4.10 -Area of Debridement (cm) - Length 4.1 -Area of Debridement (cm) - Width 1.0 -Total Square (Area) (cm) 4.10 -Tunneling No -Undermining/Tunneling No -Circular Undermining No -Wound/Ulcer Outcome Not Healed -Ulcer Cleansing Rinsed/ Irrigated with Saline -Foul Odor after Cleansing No -Bioengineered Tissue No -Bleeding Controlled with Pressure -Offloading No -Treatment Response Procedure Tolerated Well -Debridement - Subq, 1st 20sq cm No [See Physician Procedure note for Specifics] Pain Scale: 0-10 Numeric [Pain] -Is Patient Pain Free? Yes Musculoskeletal: No Tenderness to Palpation of Joints or Extremities Lymphatic: No Cervical, Supraclavicular, or Inguinal Adenopathy Neurological: Cranial nerves II-XII grossly intact, Neuro grossly intact Psych/Mental Status: Normal Affect, Appropriate Debridement Note Post-Debridement Measurements/Treatment WC - Nurse 2 - General Ulcer CM Notes Start: 07/14/20 08:09 Freq: Status: Active Protocol: Activity Type Activity Date Activity User E-Sign Co-Sign Detail Recorded Client Recorded Date Recorded By Document 07/14/20 08:21 MW [id number] 07/14/20 08:37 MW Document 07/14/20 08:26 MW [id number] 07/14/20 08:37 MW Document 07/21/20 08:31 MW [id number] 07/21/20 08:36 MW 07/14/20 07/14/20 07/21/20 08:21 08:26 08:31 Wound Center Nurse 2 #3 right amnley superior medial -Time 08:25 08:30 08:33 -Correct Patient Yes Yes Yes -Correct Side, Site, Position Yes Yes Yes -Correct Procedure Yes Yes Yes -Procedure Performed Yes Yes Yes -Type of Procedure Debridement Debridement Debridement -Clinical Debridement Subcutaneous Subcutaneous Subcutaneous -Tissue Removed Subcutaneous Subcutaneous Subcutaneous -Post Debridement (cm) - Length 0.3 0.3 0.4 -Post Debridement (cm) - Width 0.3 0.3 0.4 -Post Debridement (cm) - Depth 0.3 0.2 0.4 -Total Square (Post) (cm) 0.09 0.09 0.16 -Area of Debridement (cm) - Length 0.3 0.3 0.4 -Area of Debridement (cm) - Width 0.3 0.3 0.4 -Total Square (Area) (cm) 0.09 0.09 0.16 -Tunneling No No No -Undermining/Tunneling No No No -Circular Undermining No No No -Wound/Ulcer Outcome Not Healed Not Healed Not Healed -Ulcer Cleansing Rinsed/ Rinsed/ Rinsed/ Irrigated with Irrigated with Irrigated with Saline Saline Saline -Foul Odor after Cleansing No No No -Bioengineered Tissue No No No -Bleeding Controlled with Silver Nitrate Pressure Pressure -Offloading No No No -Treatment Response Procedure Procedure Procedure Tolerated Well Tolerated Well Tolerated Well -Debridement - Subq, 1st 20sq cm Yes Yes Yes #2 RIGHT MANLEY SUPERIOR CLUSTER -Time 08:26 08:31 08:34 -Correct Patient Yes Yes Yes -Correct Side, Site, Position Yes Yes Yes -Correct Procedure Yes Yes Yes -Procedure Performed Yes Yes Yes -Type of Procedure Debridement Debridement Debridement -Clinical Debridement Subcutaneous Subcutaneous Subcutaneous -Tissue Removed Subcutaneous Subcutaneous Subcutaneous -Post Debridement (cm) - Length 4.0 4.0 4.1 -Post Debridement (cm) - Width 2.2 2.2 1.0 -Post Debridement (cm) - Depth 0.5 0.5 0.4 -Total Square (Post) (cm) 8.80 8.80 4.10 -Area of Debridement (cm) - Length 4.0 4.0 4.1 -Area of Debridement (cm) - Width 2.2 2.2 1.0 -Total Square (Area) (cm) 8.80 8.80 4.10 -Tunneling No No No -Undermining/Tunneling No No No -Circular Undermining No No No -Wound/Ulcer Outcome Not Healed Not Healed Not Healed -Ulcer Cleansing Rinsed/ Rinsed/ Rinsed/ Irrigated with Irrigated with Irrigated with Saline Saline Saline -Foul Odor after Cleansing No No -Bioengineered Tissue No No No -Bleeding Controlled with Pressure Pressure Pressure -Offloading No No No -Treatment Response Procedure Procedure Tolerated Well Tolerated Well -Debridement - Subq, 1st 20sq cm No No No Pain Scale: 0-10 Numeric Is Patient Pain Free? Yes Yes Yes - Nurse 3 - General Ulcer D/C NN Start: 07/14/20 08:09 Freq: Status: Active Protocol: Activity Type Activity Date Activity User E-Sign Co-Sign Detail Recorded Client Recorded Date Recorded By Document 07/14/20 08:37 MW [id number] 07/14/20 08:39 MW 07/14/20 08:37 Wound Care Nurse 3 #3 right manley superior medial -Ulcer Cleansing Rinsed/ Irrigated with Saline -Foul Odor after Cleansing No -Negative Pressure Wound Therapy N/A -Primary Dressing Applied Fibracol Plus 4x4 -Primary Dressing Covered/Secured with Dry Gauze & Roll Gauze, Secured with Tape -Fibracol Plus 4x4 1 #2 RIGHT MANLEY SUPERIOR CLUSTER -Ulcer Cleansing Rinsed/ Irrigated with Saline -Foul Odor after Cleansing No -Negative Pressure Wound Therapy N/A -Other Dressing FIBRAOL PLUS -Primary Dressing Covered/Secured with Dry Gauze & Roll Gauze, Secured with Tape Treatment Response Procedure Tolerated Well Pain Scale: 0-10 Numeric Is Patient Pain Free? Yes Teaching: Wound Center Dressing Your Wound -Person Taught Patient -Teaching Method Discussion, Demonstration -Response to teaching Verbalize understanding WC - Visit Discharge Discharge Condition Stable Ambulatory Status Ambulatory Transportation Private Auto Accompanied by SELF Medication Reconcilliation completed & No provided to patient/care provider Clinical Summary of Care Provided Yes Wound debrided: Right manley Type of Debridement: Excisional debridement Anesthesia Used: 5% Lidocaine Gel Depth: Down to and including healthy tissue, in the subcutaneous layer Percentage of wound debrided: 100 Instrument Used: 3mm curette Tissue Removed: Slough Severity: Fat Layer Exposed Amount of bleeding with debridement: Mild Bleeding Controlled with: Compression and gauze Patient tolerated procedure well Assessment/Plan Active Problems (Last Updated 09/20/17 @ 14:24 by Sue Adkins) Psoriasis (a type of skin inflammation) (Acute) Nonhealing nonsurgical wound with fat layer exposed (Acute) Non-pressure chronic ulcer right lower leg, 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 Long-term use of Coumadin. Nonhealing nonsurgical cluster wound right manley. Chronic nonhealing nonpressure wound right lower manley Plan: Wash leg with Hibiclens apply Promogran to wound base cover with Adaptic then gauze. Double layer Tubigrip daily. Follow-up in 1 week. Did apply for skin sub-to run through insurance
[2020-07-21 08:43] VITALS: BP 156/86
[2020-07-28 08:22] VITALS: BP 145/85; PULSE 62; RESP 18; TEMP 36.6; BMI 30.7
[2020-07-28 08:54] VITALS: BP 145/85
--- NOTE | 2020-07-28 08:57 | PN.PCM_ITS ---
(1) Infected open wound Status: Acute Code(s): T14.8XXA - Other injury of unspecified body region, initial encounter; L08.9 - Local infection of the skin and subcutaneous tissue, unspecified (2) Non-pressure chronic ulcer right lower leg, limited to breakdown skin Status: Acute Code(s): L97.911 - Non-pressure chronic ulcer of unspecified part of right lower leg limited to breakdown of skin (3) Nonhealing nonsurgical wound with fat layer exposed Status: Acute Code(s): T14.8XXA - Other injury of unspecified body region, initial encounter (4) Psoriasis (a type of skin inflammation) Status: Acute Code(s): L40.9 - Psoriasis, unspecified Type of Wound Date of Service: 07/28/20 Chief Complaint: Follow-up right manley traumatic wound History of Wound: 64-year-old white male with history of psoriasis on both shins hit his right leg against a elevator shaft a month prior to his arrival here the first part of March and developed large deep open wounds nonhealing. Patient was seen by his primary doctor and was put on doxycycline and given Silvadene cream for care. Progress of Wound: A chronic greater than 30-day old wound from trauma to the right manley superior wound shows tendon inferior wound has healed. Obtained some x-ray of the tib-fib are negative. He has developed a new open area that started this last week like an abscess and the superior medial manley. Culture showed 6 different bacteria is gone with an anaerobe. We will stop the Fibracol and try Promogran . Has finished his last antibiotic yesterday. Skin substitute was denied by his insurance company. Healing nicely on the Promogran will continue - Physical Exam Vital Signs Temp Pulse Resp BP 97.8 F 62 18 145/85 H 07/28/20 08:22 07/28/20 08:22 07/28/20 08:22 07/28/20 08:54 General: Oriented x3, Cooperative, Well developed HEENT: Atraumatic, PERRLA Oral: Moist Mucosa Neck: Supple, No JVD Lungs: Clear to auscultation, Normal air movement Cardiovascular: Regular rate, Regular Rhythm Abdomen: Bowel Sounds Present, Soft, Non Tender, No Hepato-splenomegaly Extremities: No clubbing, No edema, - - Right manley traumatic wound Wound Measurements and Assessment WC - Nurse 1 - General Ulcer Measurement Start: 07/14/20 08:09 Freq: Status: Active Protocol: Activity Type Activity Date Activity User E-Sign Co-Sign Detail Recorded Client Recorded Date Recorded By Document 07/28/20 08:22 [email or web address] [id number] 07/28/20 08:29 [email or web address] 07/28/20 08:22 Wound Center Nurse 1 [Ulcer Assessment] #3 right manley superior medial -Combined with other wound No -Current Size (cm) - Length 0.3 -Current Size (cm) - Width 0.3 -Current Size (cm) - Depth 0.1 -Total Square Cm 0.09 -Tunneling No -Undermining/Tunneling No -Circular Undermining No -Exudate Amt Medium -Exudate Type Serosanguineous -Wound Margin Thickened & Rolled Under -Granulation Amt Medium (34-66%) -Granulation Quality [place],Red -Slough/Fibrin Yes -Necrosis Amt Small (1-33%) -Necrotic Tissue Type Adherent Slough -Structure Exposed N/A -Texture ([place]-wound Skin Appearance) Assessed, Scarring -Moisture ([place]-wound Skin Appearance Assessed ) -Color ([place]-wound Skin Appearance) Assessed -Temperature ([place]-wound Skin No Abnormality Appearance) (Pt Warm) -Tenderness on Palpation ([place]-wound No Skin Appearance) -Ulcer Cleansing Wound Cleanser -Foul Odor after Cleansing No -Anesthetic Used 4% Lidocaine Solution #2 RIGHT MANLEY SUPERIOR CLUSTER -Combined with other wound No -Current Size (cm) - Length 3.4 -Current Size (cm) - Width 0.9 -Current Size (cm) - Depth 0.4 -Total Square Cm 3.06 -Tunneling No -Undermining/Tunneling No -Circular Undermining No -Exudate Amt Medium -Exudate Type Serosanguineous -Wound Margin Thickened & Rolled Under -Granulation Amt Medium (34-66%) -Granulation Quality [place] -Slough/Fibrin Yes -Necrosis Amt Small (1-33%) -Necrotic Tissue Type Adherent Slough -Structure Exposed N/A -Texture ([place]-wound Skin Appearance) Assessed, Scarring -Moisture ([place]-wound Skin Appearance Assessed ) -Color ([place]-wound Skin Appearance) Assessed -Temperature ([place]-wound Skin No Abnormality Appearance) (Pt Warm) -Tenderness on Palpation ([place]-wound No Skin Appearance) -Ulcer Cleansing Wound Cleanser -Foul Odor after Cleansing No -Anesthetic Used 4% Lidocaine Solution [Edema Assessment] -Lower Limb Edema Present NA WC - Nurse 2 - General Ulcer CM Notes Start: 07/14/20 08:09 Freq: Status: Active Protocol: Activity Type Activity Date Activity User E-Sign Co-Sign Detail Recorded Client Recorded Date Recorded By Document 07/28/20 08:37 MW [id number] 07/28/20 08:40 MW 07/28/20 08:37 Wound Center Nurse 2 [Procedure/Treatment] #3 right manley superior medial -Time 08:38 -Correct Patient Yes -Correct Side, Site, Position Yes -Correct Procedure Yes -Procedure Performed Yes -Type of Procedure Debridement -Clinical Debridement Subcutaneous -Tissue Removed Subcutaneous -Post Debridement (cm) - Length 0.3 -Post Debridement (cm) - Width 0.3 -Post Debridement (cm) - Depth 0.3 -Total Square (Post) (cm) 0.09 -Area of Debridement (cm) - Length 0.3 -Area of Debridement (cm) - Width 0.3 -Total Square (Area) (cm) 0.09 -Tunneling No -Undermining/Tunneling No -Circular Undermining No -Wound/Ulcer Outcome Not Healed -Ulcer Cleansing Rinsed/ Irrigated with Saline -Foul Odor after Cleansing No -Bioengineered Tissue No -Bleeding Controlled with Pressure -Offloading No -Treatment Response Procedure Tolerated Well -Debridement - Subq, 1st 20sq cm Yes #2 RIGHT MANLEY SUPERIOR CLUSTER -Time 08:38 -Correct Patient Yes -Correct Side, Site, Position Yes -Correct Procedure Yes -Type of Procedure Debridement -Clinical Debridement Subcutaneous -Tissue Removed Subcutaneous -Post Debridement (cm) - Length 3.6 -Post Debridement (cm) - Width 2.3 -Post Debridement (cm) - Depth 0.4 -Total Square (Post) (cm) 8.28 -Area of Debridement (cm) - Length 3.6 -Area of Debridement (cm) - Width 2.3 -Total Square (Area) (cm) 8.28 -Tunneling No -Undermining/Tunneling No -Circular Undermining No -Wound/Ulcer Outcome Not Healed -Ulcer Cleansing Rinsed/ Irrigated with Saline -Foul Odor after Cleansing No -Bioengineered Tissue No -Bleeding Controlled with Pressure -Offloading No -Treatment Response Procedure Tolerated Well -Debridement - Subq, 1st 20sq cm No [See Physician Procedure note for Specifics] Pain Scale: 0-10 Numeric [Pain] -Is Patient Pain Free? Yes - Nurse 3 - General Ulcer D/C NN Start: 07/14/20 08:09 Freq: Status: Active Protocol: Activity Type Activity Date Activity User E-Sign Co-Sign Detail Recorded Client Recorded Date Recorded By Document 07/28/20 08:54 RB [id number] 07/28/20 08:56 RB 07/28/20 08:54 Wound Care Nurse 3 [Wound Dressing] #3 right manley superior medial -Ulcer Cleansing Rinsed/ Irrigated with Saline -Foul Odor after Cleansing No -Primary Dressing Applied NonAdherent Contact Layer, Promogran -Primary Dressing Covered/Secured Dry Gauze,Dry with Gauze & Roll Gauze,Secured with Tape -Promogran 2 #2 RIGHT MANLEY SUPERIOR CLUSTER -Ulcer Cleansing Rinsed/ Irrigated with Saline -Other Dressing promogran -Primary Dressing Covered/Secured Dry Gauze & with Roll Gauze, Secured with Tape [Compression Applied] Right -Tubular Bandage Double Layer -Size of Tubigrip Used Size E -Size E ($) 2 [Post Procedure Tolerated] -Treatment Response Procedure Tolerated Well Vital Signs [Blood Pressure] -Blood Pressure (90/60-120/80 mm Hg) 145/85 H -Blood Pressure Mean (mm Hg) 105 -Source Monitor -Position Semi-Fowlers -Blood Pressure Location Left Arm Pain Scale: 0-10 Numeric [Pain] -Is Patient Pain Free? Yes - Visit Discharge [Visit Discharge Information] -Discharge Condition Stable -Ambulatory Status Ambulatory -Transportation Private Auto -Medication Reconcilliation completed No & provided to patient/care provider -Clinical Summary of Care Provided Yes Musculoskeletal: No Tenderness to Palpation of Joints or Extremities Lymphatic: No Cervical, Supraclavicular, or Inguinal Adenopathy Neurological: Cranial nerves II-XII grossly intact, Neuro grossly intact Psych/Mental Status: Normal Affect, Appropriate Debridement Note Post-Debridement Measurements/Treatment WC - Nurse 2 - General Ulcer CM Notes Start: 07/14/20 08:09 Freq: Status: Active Protocol: Activity Type Activity Date Activity User E-Sign Co-Sign Detail Recorded Client Recorded Date Recorded By Document 07/14/20 08:21 [id number] 07/14/20 08:37 MW Document 07/14/20 08:26 MW [id number] 07/14/20 08:37 MW Document 07/21/20 08:31 MW [id number] 07/21/20 08:36 MW Document 07/28/20 08:37 MW [id number] 07/28/20 08:40 MW 07/14/20 07/14/20 07/21/20 08:21 08:26 08:31 Wound Center Nurse 2 #3 right manley superior medial -Time 08:25 08:30 08:33 -Correct Patient Yes Yes Yes -Correct Side, Site, Position Yes Yes Yes -Correct Procedure Yes Yes Yes -Procedure Performed Yes Yes Yes -Type of Procedure Debridement Debridement Debridement -Clinical Debridement Subcutaneous Subcutaneous Subcutaneous -Tissue Removed Subcutaneous Subcutaneous Subcutaneous -Post Debridement (cm) - Length 0.3 0.3 0.4 -Post Debridement (cm) - Width 0.3 0.3 0.4 -Post Debridement (cm) - Depth 0.3 0.2 0.4 -Total Square (Post) (cm) 0.09 0.09 0.16 -Area of Debridement (cm) - Length 0.3 0.3 0.4 -Area of Debridement (cm) - Width 0.3 0.3 0.4 -Total Square (Area) (cm) 0.09 0.09 0.16 -Tunneling No No No -Undermining/Tunneling No No No -Circular Undermining No No No -Wound/Ulcer Outcome Not Healed Not Healed Not Healed -Ulcer Cleansing Rinsed/ Rinsed/ Rinsed/ Irrigated with Irrigated with Irrigated with Saline Saline Saline -Foul Odor after Cleansing No No No -Bioengineered Tissue No No No -Bleeding Controlled with Silver Nitrate Pressure Pressure -Offloading No No No -Treatment Response Procedure Procedure Procedure Tolerated Well Tolerated Well Tolerated Well -Debridement - Subq, 1st 20sq cm Yes Yes Yes #2 RIGHT MANLEY SUPERIOR CLUSTER -Time 08:26 08:31 08:34 -Correct Patient Yes Yes Yes -Correct Side, Site, Position Yes Yes Yes -Correct Procedure Yes Yes Yes -Procedure Performed Yes Yes Yes -Type of Procedure Debridement Debridement Debridement -Clinical Debridement Subcutaneous Subcutaneous Subcutaneous -Tissue Removed Subcutaneous Subcutaneous Subcutaneous -Post Debridement (cm) - Length 4.0 4.0 4.1 -Post Debridement (cm) - Width 2.2 2.2 1.0 -Post Debridement (cm) - Depth 0.5 0.5 0.4 -Total Square (Post) (cm) 8.80 8.80 4.10 -Area of Debridement (cm) - Length 4.0 4.0 4.1 -Area of Debridement (cm) - Width 2.2 2.2 1.0 -Total Square (Area) (cm) 8.80 8.80 4.10 -Tunneling No No No -Undermining/Tunneling No No No -Circular Undermining No No No -Wound/Ulcer Outcome Not Healed Not Healed Not Healed -Ulcer Cleansing Rinsed/ Rinsed/ Rinsed/ Irrigated with Irrigated with Irrigated with Saline Saline Saline -Foul Odor after Cleansing No No -Bioengineered Tissue No No No -Bleeding Controlled with Pressure Pressure Pressure -Offloading No No No -Treatment Response Procedure Procedure Tolerated Well Tolerated Well -Debridement - Subq, 1st 20sq cm No No No Pain Scale: 0-10 Numeric Is Patient Pain Free? Yes Yes Yes 07/28/20 08:37 Wound Center Nurse 2 #3 right manley superior medial -Time 08:38 -Correct Patient Yes -Correct Side, Site, Position Yes -Correct Procedure Yes -Procedure Performed Yes -Type of Procedure Debridement -Clinical Debridement Subcutaneous -Tissue Removed Subcutaneous -Post Debridement (cm) - Length 0.3 -Post Debridement (cm) - Width 0.3 -Post Debridement (cm) - Depth 0.3 -Total Square (Post) (cm) 0.09 -Area of Debridement (cm) - Length 0.3 -Area of Debridement (cm) - Width 0.3 -Total Square (Area) (cm) 0.09 -Tunneling No -Undermining/Tunneling No -Circular Undermining No -Wound/Ulcer Outcome Not Healed -Ulcer Cleansing Rinsed/ Irrigated with Saline -Foul Odor after Cleansing No -Bioengineered Tissue No -Bleeding Controlled with Pressure -Offloading No -Treatment Response Procedure Tolerated Well -Debridement - Subq, 1st 20sq cm Yes #2 RIGHT MANLEY SUPERIOR CLUSTER -Time 08:38 -Correct Patient Yes -Correct Side, Site, Position Yes -Correct Procedure Yes -Procedure Performed -Type of Procedure Debridement -Clinical Debridement Subcutaneous -Tissue Removed Subcutaneous -Post Debridement (cm) - Length 3.6 -Post Debridement (cm) - Width 2.3 -Post Debridement (cm) - Depth 0.4 -Total Square (Post) (cm) 8.28 -Area of Debridement (cm) - Length 3.6 -Area of Debridement (cm) - Width 2.3 -Total Square (Area) (cm) 8.28 -Tunneling No -Undermining/Tunneling No -Circular Undermining No -Wound/Ulcer Outcome Not Healed -Ulcer Cleansing Rinsed/ Irrigated with Saline -Foul Odor after Cleansing No -Bioengineered Tissue No -Bleeding Controlled with Pressure -Offloading No -Treatment Response Procedure Tolerated Well -Debridement - Subq, 1st 20sq cm No Pain Scale: 0-10 Numeric Is Patient Pain Free? Yes WC - Nurse 3 - General Ulcer D/C NN Start: 07/14/20 08:09 Freq: Status: Active Protocol: Activity Type Activity Date Activity User E-Sign Co-Sign Detail Recorded Client Recorded Date Recorded By Document 07/14/20 08:37 MW [id number] 07/14/20 08:39 MW Document 07/21/20 08:43 RB [id number] 07/21/20 08:45 RB Document 07/28/20 08:54 RB [id number] 07/28/20 08:56 RB 07/14/20 07/21/20 07/28/20 08:37 08:43 08:54 Wound Care Nurse 3 #3 right manley superior medial -Ulcer Cleansing Rinsed/ Rinsed/ Rinsed/ Irrigated with Irrigated with Irrigated with Saline Saline Saline -Foul Odor after Cleansing No No -Negative Pressure Wound Therapy N/A -Primary Dressing Applied Fibracol Plus Promogran NonAdherent 4x4 Contact Layer, Promogran -Primary Dressing Covered/Secured with Dry Gauze & Dry Gauze,Dry Dry Gauze,Dry Roll Gauze, Gauze & Roll Gauze & Roll Secured with Gauze,Secured Gauze,Secured Tape with Tape with Tape -Fibracol Plus 4x4 1 -Promogran 1 2 #2 RIGHT MANLEY SUPERIOR CLUSTER -Ulcer Cleansing Rinsed/ Rinsed/ Rinsed/ Irrigated with Irrigated with Irrigated with Saline Saline Saline -Foul Odor after Cleansing No -Negative Pressure Wound Therapy N/A -Other Dressing FIBRAOL PLUS promogran promogran -Primary Dressing Covered/Secured with Dry Gauze & Dry Gauze,Dry Dry Gauze & Roll Gauze, Gauze & Roll Roll Gauze, Secured with Gauze,Secured Secured with Tape with Tape Tape Right -Tubular Bandage Double Layer -Size of Tubigrip Used Size E -Size E ($) 2 -Other double layer Treatment Response Procedure Procedure Procedure Tolerated Well Tolerated Well Tolerated Well Vital Signs Blood Pressure (90/60-120/80 mm Hg) 156/86 H 145/85 H Blood Pressure Mean (mm Hg) 109 105 Source Monitor Monitor Position Sitting Semi-Fowlers Blood Pressure Location Left Arm Left Arm Pain Scale: 0-10 Numeric Is Patient Pain Free? Yes Yes Yes Teaching: Wound Center Dressing Your Wound -Person Taught Patient Patient -Teaching Method Discussion, Discussion Demonstration -Response to teaching Verbalize Verbalize understanding understanding WC - Visit Discharge Discharge Condition Stable Stable Stable Ambulatory Status Ambulatory Ambulatory Ambulatory Transportation Private Auto Private Auto Private Auto Accompanied by SELF Medication Reconcilliation completed & No No No provided to patient/care provider Clinical Summary of Care Provided Yes Yes Yes Wound debrided: Right manley Type of Debridement: Excisional debridement Depth: in the subcutaneous layer Percentage of wound debrided: 100 Instrument Used: 3mm curette Tissue Removed: Slough fibrin Severity: Limited To Skin Breakdown Amount of bleeding with debridement: Mild Bleeding Controlled with: Compression and gauze Patient tolerated procedure well Assessment/Plan Active Problems (Last Updated 09/20/17 @ 14:24 by Sue Adkins) Psoriasis (a type of skin inflammation) (Acute) Nonhealing nonsurgical wound with fat layer exposed (Acute) Non-pressure chronic ulcer right lower leg, 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 Long-term use of Coumadin. Nonhealing nonsurgical cluster wound right manley. Chronic nonhealing nonpressure wound right lower manley Plan: Wash leg with Hibiclens apply Promogran to wound base cover with Adaptic then gauze. Double layer Tubigrip daily. Follow-up in 1 week. Did apply for skin sub-to run through insurance
[2020-08-04 08:05] VITALS: BP 153/87; PULSE 62; RESP 16; TEMP 35.9; BMI 30.7
--- NOTE | 2020-08-04 08:35 | PCM.WC.PN ---
(1) Infected open wound Status: Acute Code(s): T14.8XXA - Other injury of unspecified body region, initial encounter; L08.9 - Local infection of the skin and subcutaneous tissue, unspecified (2) Non-pressure chronic ulcer right lower leg, limited to breakdown skin Status: Acute Code(s): L97.911 - Non-pressure chronic ulcer of unspecified part of right lower leg limited to breakdown of skin (3) Nonhealing nonsurgical wound with fat layer exposed Status: Acute Code(s): T14.8XXA - Other injury of unspecified body region, initial encounter (4) Psoriasis (a type of skin inflammation) Status: Acute Code(s): L40.9 - Psoriasis, unspecified Type of Wound Date of Service: 08/04/20 Chief Complaint: Follow-up right manley traumatic wound History of Wound: 64-year-old white male with history of psoriasis on both shins hit his right leg against a elevator shaft a month prior to his arrival here the first part of March and developed large deep open wounds nonhealing. Patient was seen by his primary doctor and was put on doxycycline and given Silvadene cream for care. Progress of Wound: A chronic greater than 30-day old wound from trauma to the right manley superior wound shows tendon inferior wound has healed. Obtained some x-ray of the tib-fib are negative. He has developed a new open area that started this last week like an abscess and the superior medial manley. Culture showed 6 different bacteria is gone with an anaerobe. We will stop the Fibracol and try Promogran . Has finished his last antibiotic yesterday. Skin substitute was denied by his insurance company. Healing nicely on the Promogran will continue. Continues to close wound much smaller - Physical Exam Vital Signs Temp Pulse Resp BP 96.6 F L 62 16 153/87 H 08/04/20 08:05 08/04/20 08:05 08/04/20 08:05 08/04/20 08:05 General: Oriented x3, Cooperative, Well developed HEENT: Atraumatic, PERRLA Oral: Moist Mucosa Neck: Supple, No JVD Lungs: Clear to auscultation, Normal air movement Cardiovascular: Regular rate, Regular Rhythm Abdomen: Bowel Sounds Present, Soft, Non Tender, No Hepato-splenomegaly Extremities: No clubbing, No edema, - - Right manley wound from trauma Wound Measurements and Assessment WC - Nurse 1 - General Ulcer Measurement Start: 07/14/20 08:09 Freq: Status: Active Protocol: Activity Type Activity Date Activity User E-Sign Co-Sign Detail Recorded Client Recorded Date Recorded By Document 08/04/20 08:05 [facility] [id number] 08/04/20 08:08 [facility] 08/04/20 08:05 Wound Center Nurse 1 [Ulcer Assessment] #3 right manley superior medial -Combined with other wound No -Current Size (cm) - Length 1.2 -Current Size (cm) - Width 0.5 -Current Size (cm) - Depth 0.3 -Total Square Cm 0.60 -Photo Taken No -Epithelialization None Present -Tunneling No -Undermining/Tunneling No -Circular Undermining No -Exudate Amt Small -Exudate Type Serosanguineous -Wound Margin Distinct, Outline Attached -Granulation Amt Small (1-33%) -Granulation Quality [place] -Slough/Fibrin Yes -Necrosis Amt Large (67-100%) -Necrotic Tissue Type Adherent Slough -Texture ([place]-wound Skin Appearance) Assessed, Scarring -Moisture ([place]-wound Skin Appearance Assessed ) -Color ([place]-wound Skin Appearance) Assessed -Temperature ([place]-wound Skin No Abnormality Appearance) (Pt Warm) -Tenderness on Palpation ([place]-wound No Skin Appearance) -Ulcer Cleansing Rinsed/ Irrigated with Saline -Foul Odor after Cleansing No -Anesthetic Used 5% Lidocaine Gel #2 RIGHT MANLEY SUPERIOR CLUSTER -Combined with other wound No -Current Size (cm) - Length 0.1 -Current Size (cm) - Width 0.1 -Current Size (cm) - Depth 0.1 -Total Square Cm 0.01 -Photo Taken No -Epithelialization Large 67-100% -Exudate Amt None Present -Slough/Fibrin Yes -Necrosis Amt Small (1-33%) -Necrotic Tissue Type Adherent Slough -Texture ([place]-wound Skin Appearance) Assessed, Scarring -Moisture ([place]-wound Skin Appearance Assessed ) -Color ([place]-wound Skin Appearance) Assessed -Temperature ([place]-wound Skin No Abnormality Appearance) (Pt Warm) -Tenderness on Palpation ([place]-wound No Skin Appearance) -Ulcer Cleansing Rinsed/ Irrigated with Saline -Foul Odor after Cleansing No -Anesthetic Used 5% Lidocaine Gel [Edema Assessment] -Lower Limb Edema Present Yes -Right Calf (cm) 41 -Right Ankle (cm) 22.5 WC - Nurse 2 - General Ulcer CM Notes Start: 07/14/20 08:09 Freq: Status: Active Protocol: Activity Type Activity Date Activity User E-Sign Co-Sign Detail Recorded Client Recorded Date Recorded By Document 08/04/20 08:18 MW [id number] 08/04/20 08:21 MW 08/04/20 08:18 Wound Center Nurse 2 [Procedure/Treatment] #3 right manley superior medial -Time 08:18 -Correct Patient Yes -Correct Side, Site, Position Yes -Correct Procedure Yes -Procedure Performed No -Type of Procedure Debridement -Clinical Debridement Subcutaneous -Tissue Removed Subcutaneous -Post Debridement (cm) - Length 0.2 -Post Debridement (cm) - Width 0.2 -Post Debridement (cm) - Depth 0.2 -Total Square (Post) (cm) 0.04 -Area of Debridement (cm) - Length 0.2 -Area of Debridement (cm) - Width 0.2 -Total Square (Area) (cm) 0.04 -Tunneling No -Undermining/Tunneling No -Circular Undermining No -Wound/Ulcer Outcome Not Healed -Ulcer Cleansing Rinsed/ Irrigated with Saline -Foul Odor after Cleansing No -Bioengineered Tissue No -Bleeding Controlled with Pressure -Offloading No -Treatment Response Procedure Tolerated Well -Debridement - Subq, 1st 20sq cm Yes #2 RIGHT MANLEY SUPERIOR CLUSTER -Time 08:20 -Correct Patient Yes -Correct Side, Site, Position Yes -Correct Procedure Yes -Procedure Performed Yes -Type of Procedure Debridement -Clinical Debridement Subcutaneous -Tissue Removed Subcutaneous -Post Debridement (cm) - Length 3.6 -Post Debridement (cm) - Width 0.6 -Post Debridement (cm) - Depth 0.3 -Total Square (Post) (cm) 2.16 -Area of Debridement (cm) - Length 3.6 -Area of Debridement (cm) - Width 0.6 -Total Square (Area) (cm) 2.16 -Tunneling No -Undermining/Tunneling No -Circular Undermining No -Wound/Ulcer Outcome Not Healed -Ulcer Cleansing Rinsed/ Irrigated with Saline -Foul Odor after Cleansing No -Bioengineered Tissue No -Bleeding Controlled with Pressure -Offloading No -Treatment Response Procedure Tolerated Well -Debridement - Subq, 1st 20sq cm No [See Physician Procedure note for Specifics] Pain Scale: 0-10 Numeric [Pain] -Is Patient Pain Free? Yes - Nurse 3 - General Ulcer D/C NN Start: 07/14/20 08:09 Freq: Status: Active Protocol: Activity Type Activity Date Activity User E-Sign Co-Sign Detail Recorded Client Recorded Date Recorded By Document 08/04/20 08:34 [facility] [id number] 08/04/20 08:35 [facility] 08/04/20 08:34 Wound Care Nurse 3 [Wound Dressing] #3 right manley superior medial -Ulcer Cleansing Rinsed/ Irrigated with Saline -Foul Odor after Cleansing No -Primary Dressing Applied NonAdherent Contact Layer, Other -Other Dressing hydrogel -Primary Dressing Covered/Secured Dry Gauze & with Roll Gauze, Secured with Tape #2 RIGHT MANLEY SUPERIOR CLUSTER -Ulcer Cleansing Rinsed/ Irrigated with Saline -Foul Odor after Cleansing No -Primary Dressing Applied NonAdherent Contact Layer, Other -Other Dressing hydrogel -Primary Dressing Covered/Secured Dry Gauze & with Roll Gauze, Secured with Tape -Other Covering manpreet clarke rn [Compression Applied] Right -Other pts own double layer tubi Pain Scale: 0-10 Numeric [Pain] -Is Patient Pain Free? Yes - Visit Discharge [Visit Discharge Information] -Discharge Condition Stable -Ambulatory Status Ambulatory -Transportation Private Auto Musculoskeletal: No Tenderness to Palpation of Joints or Extremities Lymphatic: No Cervical, Supraclavicular, or Inguinal Adenopathy Neurological: Cranial nerves II-XII grossly intact, Neuro grossly intact Psych/Mental Status: Normal Affect, Appropriate Debridement Note Post-Debridement Measurements/Treatment - Nurse 2 - General Ulcer CM Notes Start: 07/14/20 08:09 Freq: Status: Active Protocol: Activity Type Activity Date Activity User E-Sign Co-Sign Detail Recorded Client Recorded Date Recorded By Document 07/14/20 08:21 MW [id number] 07/14/20 08:37 MW Document 07/14/20 08:26 MW [id number] 07/14/20 08:37 MW Document 07/21/20 08:31 MW [id number] 07/21/20 08:36 MW Document 07/28/20 08:37 MW [id number] 07/28/20 08:40 MW Document 08/04/20 08:18 MW [id number] 08/04/20 08:21 MW 07/14/20 07/14/20 07/21/20 08:21 08:26 08:31 Wound Center Nurse 2 #3 right manley superior medial -Time 08:25 08:30 08:33 -Correct Patient Yes Yes Yes -Correct Side, Site, Position Yes Yes Yes -Correct Procedure Yes Yes Yes -Procedure Performed Yes Yes Yes -Type of Procedure Debridement Debridement Debridement -Clinical Debridement Subcutaneous Subcutaneous Subcutaneous -Tissue Removed Subcutaneous Subcutaneous Subcutaneous -Post Debridement (cm) - Length 0.3 0.3 0.4 -Post Debridement (cm) - Width 0.3 0.3 0.4 -Post Debridement (cm) - Depth 0.3 0.2 0.4 -Total Square (Post) (cm) 0.09 0.09 0.16 -Area of Debridement (cm) - Length 0.3 0.3 0.4 -Area of Debridement (cm) - Width 0.3 0.3 0.4 -Total Square (Area) (cm) 0.09 0.09 0.16 -Tunneling No No No -Undermining/Tunneling No No No -Circular Undermining No No No -Wound/Ulcer Outcome Not Healed Not Healed Not Healed -Ulcer Cleansing Rinsed/ Rinsed/ Rinsed/ Irrigated with Irrigated with Irrigated with Saline Saline Saline -Foul Odor after Cleansing No No No -Bioengineered Tissue No No No -Bleeding Controlled with Silver Nitrate Pressure Pressure -Offloading No No No -Treatment Response Procedure Procedure Procedure Tolerated Well Tolerated Well Tolerated Well -Debridement - Subq, 1st 20sq cm Yes Yes Yes #2 RIGHT MANLEY SUPERIOR CLUSTER -Time 08: 08:31 08:34 -Correct Patient Yes Yes Yes -Correct Side, Site, Position Yes Yes Yes -Correct Procedure Yes Yes Yes -Procedure Performed Yes Yes Yes -Type of Procedure Debridement Debridement Debridement -Clinical Debridement Subcutaneous Subcutaneous Subcutaneous -Tissue Removed Subcutaneous Subcutaneous Subcutaneous -Post Debridement (cm) - Length 4.0 4.0 4.1 -Post Debridement (cm) - Width 2.2 2.2 1.0 -Post Debridement (cm) - Depth 0.5 0.5 0.4 -Total Square (Post) (cm) 8.80 8.80 4.10 -Area of Debridement (cm) - Length 4.0 4.0 4.1 -Area of Debridement (cm) - Width 2.2 2.2 1.0 -Total Square (Area) (cm) 8.80 8.80 4.10 -Tunneling No No No -Undermining/Tunneling No No No -Circular Undermining No No No -Wound/Ulcer Outcome Not Healed Not Healed Not Healed -Ulcer Cleansing Rinsed/ Rinsed/ Rinsed/ Irrigated with Irrigated with Irrigated with Saline Saline Saline -Foul Odor after Cleansing No No -Bioengineered Tissue No No No -Bleeding Controlled with Pressure Pressure Pressure -Offloading No No No -Treatment Response Procedure Procedure Tolerated Well Tolerated Well -Debridement - Subq, 1st 20sq cm No No No Pain Scale: 0-10 Numeric Is Patient Pain Free? Yes Yes Yes 07/28/20 08/04/20 08:37 08:18 Wound Center Nurse 2 #3 right manley superior medial -Time 08:38 08:18 -Correct Patient Yes Yes -Correct Side, Site, Position Yes Yes -Correct Procedure Yes Yes -Procedure Performed Yes No -Type of Procedure Debridement Debridement -Clinical Debridement Subcutaneous Subcutaneous -Tissue Removed Subcutaneous Subcutaneous -Post Debridement (cm) - Length 0.3 0.2 -Post Debridement (cm) - Width 0.3 0.2 -Post Debridement (cm) - Depth 0.3 0.2 -Total Square (Post) (cm) 0.09 0.04 -Area of Debridement (cm) - Length 0.3 0.2 -Area of Debridement (cm) - Width 0.3 0.2 -Total Square (Area) (cm) 0.09 0.04 -Tunneling No No -Undermining/Tunneling No No -Circular Undermining No No -Wound/Ulcer Outcome Not Healed Not Healed -Ulcer Cleansing Rinsed/ Rinsed/ Irrigated with Irrigated with Saline Saline -Foul Odor after Cleansing No No -Bioengineered Tissue No No -Bleeding Controlled with Pressure Pressure -Offloading No No -Treatment Response Procedure Procedure Tolerated Well Tolerated Well -Debridement - Subq, 1st 20sq cm Yes Yes #2 RIGHT MANLEY SUPERIOR CLUSTER -Time 08:38 08:20 -Correct Patient Yes Yes -Correct Side, Site, Position Yes Yes -Correct Procedure Yes Yes -Procedure Performed Yes -Type of Procedure Debridement Debridement -Clinical Debridement Subcutaneous Subcutaneous -Tissue Removed Subcutaneous Subcutaneous -Post Debridement (cm) - Length 3.6 3.6 -Post Debridement (cm) - Width 2.3 0.6 -Post Debridement (cm) - Depth 0.4 0.3 -Total Square (Post) (cm) 8.28 2.16 -Area of Debridement (cm) - Length 3.6 3.6 -Area of Debridement (cm) - Width 2.3 0.6 -Total Square (Area) (cm) 8.28 2.16 -Tunneling No No -Undermining/Tunneling No No -Circular Undermining No No -Wound/Ulcer Outcome Not Healed Not Healed -Ulcer Cleansing Rinsed/ Rinsed/ Irrigated with Irrigated with Saline Saline -Foul Odor after Cleansing No No -Bioengineered Tissue No No -Bleeding Controlled with Pressure Pressure -Offloading No No -Treatment Response Procedure Procedure Tolerated Well Tolerated Well -Debridement - Subq, 1st 20sq cm No No Pain Scale: 0-10 Numeric Is Patient Pain Free? Yes Yes WC - Nurse 3 - General Ulcer D/C NN Start: 07/14/20 08:09 Freq: Status: Active Protocol: Activity Type Activity Date Activity User E-Sign Co-Sign Detail Recorded Client Recorded Date Recorded By Document 07/14/20 08:37 MW [id number] 07/14/20 08:39 MW Document 07/21/20 08:43 RB [id number] 07/21/20 08:45 RB Document 07/28/20 08:54 RB [id number] 07/28/20 08:56 RB Document 08/04/20 08:34 BMF [id number] 08/04/20 08:35 BMF 07/14/20 07/21/20 07/28/20 08:37 08:43 08:54 Wound Care Nurse 3 #3 right manley superior medial -Ulcer Cleansing Rinsed/ Rinsed/ Rinsed/ Irrigated with Irrigated with Irrigated with Saline Saline Saline -Foul Odor after Cleansing No No -Negative Pressure Wound Therapy N/A -Primary Dressing Applied Fibracol Plus Promogran NonAdherent 4x4 Contact Layer, Promogran -Other Dressing -Primary Dressing Covered/Secured with Dry Gauze & Dry Gauze,Dry Dry Gauze,Dry Roll Gauze, Gauze & Roll Gauze & Roll Secured with Gauze,Secured Gauze,Secured Tape with Tape with Tape -Fibracol Plus 4x4 1 -Promogran 1 2 #2 RIGHT MANLEY SUPERIOR CLUSTER -Ulcer Cleansing Rinsed/ Rinsed/ Rinsed/ Irrigated with Irrigated with Irrigated with Saline Saline Saline -Foul Odor after Cleansing No -Negative Pressure Wound Therapy N/A -Primary Dressing Applied -Other Dressing FIBRAOL PLUS promogran promogran -Primary Dressing Covered/Secured with Dry Gauze & Dry Gauze,Dry Dry Gauze & Roll Gauze, Gauze & Roll Roll Gauze, Secured with Gauze,Secured Secured with Tape with Tape Tape -Other Covering Right -Tubular Bandage Double Layer -Size of Tubigrip Used Size E -Size E ($) 2 -Other double layer Treatment Response Procedure Procedure Procedure Tolerated Well Tolerated Well Tolerated Well Vital Signs Blood Pressure (90/60-120/80 mm Hg) 156/86 H 145/85 H Blood Pressure Mean (mm Hg) 109 105 Source Monitor Monitor Position Sitting Semi-Fowlers Blood Pressure Location Left Arm Left Arm Pain Scale: 0-10 Numeric Is Patient Pain Free? Yes Yes Yes Teaching: Wound Center Dressing Your Wound -Person Taught Patient Patient -Teaching Method Discussion, Discussion Demonstration -Response to teaching Verbalize Verbalize understanding understanding WC - Visit Discharge Discharge Condition Stable Stable Stable Ambulatory Status Ambulatory Ambulatory Ambulatory Transportation Private Auto Private Auto Private Auto Accompanied by SELF Medication Reconcilliation completed & No No No provided to patient/care provider Clinical Summary of Care Provided Yes Yes Yes 08/04/20 08:34 Wound Care Nurse 3 #3 right manley superior medial -Ulcer Cleansing Rinsed/ Irrigated with Saline -Foul Odor after Cleansing No -Negative Pressure Wound Therapy -Primary Dressing Applied NonAdherent Contact Layer, Other -Other Dressing hydrogel -Primary Dressing Covered/Secured with Dry Gauze & Roll Gauze, Secured with Tape -Fibracol Plus 4x4 -Promogran #2 RIGHT MANLEY SUPERIOR CLUSTER -Ulcer Cleansing Rinsed/ Irrigated with Saline -Foul Odor after Cleansing No -Negative Pressure Wound Therapy -Primary Dressing Applied NonAdherent Contact Layer, Other -Other Dressing hydrogel -Primary Dressing Covered/Secured with Dry Gauze & Roll Gauze, Secured with Tape -Other Covering manpreet clarke rn Right -Tubular Bandage -Size of Tubigrip Used -Size E ($) -Other pts own double layer tubi Treatment Response Vital Signs Blood Pressure (90/60-120/80 mm Hg) Blood Pressure Mean (mm Hg) Source Position Blood Pressure Location Pain Scale: 0-10 Numeric Is Patient Pain Free? Yes Teaching: Wound Center Dressing Your Wound -Person Taught -Teaching Method -Response to teaching WC - Visit Discharge Discharge Condition Stable Ambulatory Status Ambulatory Transportation Private Auto Accompanied by Medication Reconcilliation completed & provided to patient/care provider Clinical Summary of Care Provided Wound debrided: Right manley wound Type of Debridement: Excisional debridement Anesthesia Used: 5% Lidocaine Gel Depth: Down to and including healthy tissue, in the subcutaneous layer Percentage of wound debrided: 100 Instrument Used: 5mm curette Tissue Removed: Fibrin Severity: Limited To Skin Breakdown Amount of bleeding with debridement: Mild Bleeding Controlled with: Compression and gauze Patient tolerated procedure well Assessment/Plan Active Problems (Last Updated 09/20/17 @ 14:24 by Sue Adkins) Psoriasis (a type of skin inflammation) (Acute) Nonhealing nonsurgical wound with fat layer exposed (Acute) Non-pressure chronic ulcer right lower leg, 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 Long-term use of Coumadin. Nonhealing nonsurgical cluster wound right manley. Chronic nonhealing nonpressure wound right lower manley Plan: Wash leg with Hibiclens apply Promogran to wound base cover with Adaptic then gauze. Double layer Tubigrip daily. Follow-up in 1 week. Did apply for skin sub-to run through insurance
[2020-08-11 08:06] VITALS: BP 138/81; PULSE 57; RESP 16; TEMP 36.2; BMI 30.7
[2020-08-11 08:30] VITALS: BP 138/81
--- NOTE | 2020-08-11 10:08 | PCM.WC.PN ---
(1) Infected open wound Status: Acute Code(s): T14.8XXA - Other injury of unspecified body region, initial encounter; L08.9 - Local infection of the skin and subcutaneous tissue, unspecified (2) Non-pressure chronic ulcer right lower leg, limited to breakdown skin Status: Acute Code(s): L97.911 - Non-pressure chronic ulcer of unspecified part of right lower leg limited to breakdown of skin (3) Nonhealing nonsurgical wound with fat layer exposed Status: Acute Code(s): T14.8XXA - Other injury of unspecified body region, initial encounter (4) Psoriasis (a type of skin inflammation) Status: Acute Code(s): L40.9 - Psoriasis, unspecified Type of Wound Date of Service: 08/11/20 Chief Complaint: Follow-up right manley traumatic wound History of Wound: 64-year-old white male with history of psoriasis on both shins hit his right leg against a elevator shaft a month prior to his arrival here the first part of March and developed large deep open wounds nonhealing. Patient was seen by his primary doctor and was put on doxycycline and given Silvadene cream for care. Progress of Wound: A chronic greater than 30-day old wound from trauma to the right manley superior wound shows tendon inferior wound has healed. Obtained some x-ray of the tib-fib are negative. He has developed a new open area that started this last week like an abscess and the superior medial manley. Culture showed 6 different bacteria is gone with an anaerobe. We will stop the Fibracol and try Promogran . Has finished his last antibiotic yesterday. Skin substitute was denied by his insurance company. Healing nicely on the Promogran will continue. Continues to close wound much smaller. Continues to get smaller bottom half of the wound is healed we will continue using Promogran - Physical Exam Vital Signs Temp Pulse Resp BP 97.2 F L 57 L 16 138/81 H 08/11/20 08:06 08/11/20 08:06 08/11/20 08:06 08/11/20 08:30 General: Oriented x3, Cooperative, Well developed HEENT: Atraumatic, PERRLA Oral: Moist Mucosa Neck: Supple, No JVD Lungs: Clear to auscultation, Normal air movement Cardiovascular: Regular rate, Regular Rhythm Abdomen: Bowel Sounds Present, Soft, Non Tender, No Hepato-splenomegaly Extremities: No clubbing, No edema, - - Right manley cluster healing well Skin: Ulcer/ Wound Wound Measurements and Assessment WC - Nurse 1 - General Ulcer Measurement Start: 07/14/20 08:09 Freq: Status: Active Protocol: Activity Type Activity Date Activity User E-Sign Co-Sign Detail Recorded Client Recorded Date Recorded By Document 08/11/20 08:06 [facility] [id number] 08/11/20 08:11 [facility] 08/11/20 08:06 Wound Center Nurse 1 [Ulcer Assessment] #3 right manley superior medial -Combined with other wound No -Current Size (cm) - Length 0.6 -Current Size (cm) - Width 0.3 -Current Size (cm) - Depth 0.3 -Total Square Cm 0.18 -Photo Taken No -Epithelialization None Present -Tunneling No -Undermining/Tunneling No -Circular Undermining No -Exudate Amt Small -Exudate Type Serosanguineous -Wound Margin Distinct, Outline Attached -Granulation Amt Small (1-33%) -Granulation Quality [place] -Slough/Fibrin Yes -Necrosis Amt Large (67-100%) -Necrotic Tissue Type Adherent Slough -Texture ([place]-wound Skin Appearance) Assessed, Scarring -Moisture ([place]-wound Skin Appearance Assessed ) -Color ([place]-wound Skin Appearance) Assessed -Temperature ([place]-wound Skin No Abnormality Appearance) (Pt Warm) -Tenderness on Palpation ([place]-wound No Skin Appearance) -Ulcer Cleansing soapy water -Foul Odor after Cleansing No -Anesthetic Used 4% Lidocaine Solution #2 RIGHT MANLEY SUPERIOR CLUSTER -Combined with other wound No -Current Size (cm) - Length 0.2 -Current Size (cm) - Width 0.2 -Current Size (cm) - Depth 0.2 -Total Square Cm 0.04 -Photo Taken No -Epithelialization Large 67-100% -Tunneling No -Undermining/Tunneling No -Circular Undermining No -Exudate Amt Small -Exudate Type Serosanguineous -Wound Margin Distinct, Outline Attached -Granulation Amt Small (1-33%) -Granulation Quality [place] -Slough/Fibrin Yes -Necrosis Amt Large (67-100%) -Necrotic Tissue Type Adherent Slough -Texture ([place]-wound Skin Appearance) Assessed, Scarring -Moisture ([place]-wound Skin Appearance No Abnormality ) -Color ([place]-wound Skin Appearance) Assessed -Temperature ([place]-wound Skin No Abnormality Appearance) (Pt Warm) -Tenderness on Palpation ([place]-wound No Skin Appearance) -Ulcer Cleansing soapy water -Foul Odor after Cleansing No -Anesthetic Used 4% Lidocaine Solution [Edema Assessment] -Lower Limb Edema Present Yes -Right Calf (cm) 40.5 -Right Ankle (cm) 22.1 WC - Nurse 2 - General Ulcer CM Notes Start: 07/14/20 08:09 Freq: Status: Active Protocol: Activity Type Activity Date Activity User E-Sign Co-Sign Detail Recorded Client Recorded Date Recorded By Document 08/11/20 08:23 MW [id number] 08/11/20 08:25 MW 08/11/20 08:23 Wound Center Nurse 2 [Procedure/Treatment] #3 right manley superior medial -Time 08:24 -Correct Patient Yes -Correct Side, Site, Position Yes -Correct Procedure Yes -Procedure Performed Yes -Type of Procedure Debridement -Clinical Debridement Subcutaneous -Tissue Removed Subcutaneous -Post Debridement (cm) - Length 0.3 -Post Debridement (cm) - Width 0.2 -Post Debridement (cm) - Depth 0.2 -Total Square (Post) (cm) 0.06 -Area of Debridement (cm) - Length 0.3 -Area of Debridement (cm) - Width 0.2 -Total Square (Area) (cm) 0.06 -Tunneling No -Undermining/Tunneling No -Circular Undermining No -Wound/Ulcer Outcome Not Healed -Ulcer Cleansing Rinsed/ Irrigated with Saline -Foul Odor after Cleansing No -Bioengineered Tissue No -Bleeding Controlled with Pressure -Offloading No -Treatment Response Procedure Tolerated Well -Debridement - Subq, 1st 20sq cm Yes #2 RIGHT MANLEY SUPERIOR CLUSTER -Time 08:25 -Correct Patient Yes -Correct Side, Site, Position Yes -Correct Procedure Yes -Procedure Performed Yes -Type of Procedure Debridement -Clinical Debridement Subcutaneous -Tissue Removed Subcutaneous -Post Debridement (cm) - Length 0.7 -Post Debridement (cm) - Width 0.5 -Post Debridement (cm) - Depth 0.2 -Total Square (Post) (cm) 0.35 -Area of Debridement (cm) - Length 0.7 -Area of Debridement (cm) - Width 0.5 -Total Square (Area) (cm) 0.35 -Tunneling No -Undermining/Tunneling No -Circular Undermining No -Wound/Ulcer Outcome Not Healed -Ulcer Cleansing Rinsed/ Irrigated with Saline -Foul Odor after Cleansing No -Bioengineered Tissue No -Bleeding Controlled with Pressure -Offloading No -Treatment Response Procedure Tolerated Well -Debridement - Subq, 1st 20sq cm No [See Physician Procedure note for Specifics] Pain Scale: 0-10 Numeric [Pain] -Is Patient Pain Free? Yes - Nurse 3 - General Ulcer D/C NN Start: 07/14/20 08:09 Freq: Status: Active Protocol: Activity Type Activity Date Activity User E-Sign Co-Sign Detail Recorded Client Recorded Date Recorded By Document 08/11/20 08:30 [id number] 08/11/20 08:31 RB 08/11/20 08:30 Wound Care Nurse 3 [Wound Dressing] #3 right manley superior medial -Ulcer Cleansing Rinsed/ Irrigated with Saline -Primary Dressing Applied NonAdherent Contact Layer -Other Dressing HYDROGEL -Primary Dressing Covered/Secured Dry Gauze, with Secured with Tape #2 RIGHT MANLEY SUPERIOR CLUSTER -Ulcer Cleansing Rinsed/ Irrigated with Saline -Primary Dressing Applied NonAdherent Contact Layer -Other Dressing HYDROGEL -Primary Dressing Covered/Secured Dry Gauze, with Secured with Tape [Compression Applied] Right -Tubular Bandage Single Layer -Size of Tubigrip Used Size E -Size E ($) 1 [Post Procedure Tolerated] -Treatment Response Procedure Tolerated Well Vital Signs [Blood Pressure] -Blood Pressure (90/60-120/80 mm Hg) 138/81 H -Blood Pressure Mean (mm Hg) 100 -Source Monitor -Position Semi-Fowlers -Blood Pressure Location Left Arm Pain Scale: 0-10 Numeric [Pain] -Is Patient Pain Free? Yes - Visit Discharge [Visit Discharge Information] -Discharge Condition Stable -Ambulatory Status Ambulatory -Transportation Private Auto -Medication Reconcilliation completed No & provided to patient/care provider -Clinical Summary of Care Provided Yes Musculoskeletal: No Tenderness to Palpation of Joints or Extremities Lymphatic: No Cervical, Supraclavicular, or Inguinal Adenopathy Neurological: Cranial nerves II-XII grossly intact, Neuro grossly intact Psych/Mental Status: Normal Affect, Appropriate Debridement Note Post-Debridement Measurements/Treatment - Nurse 2 - General Ulcer CM Notes Start: 07/14/20 08:09 Freq: Status: Active Protocol: Activity Type Activity Date Activity User E-Sign Co-Sign Detail Recorded Client Recorded Date Recorded By Document 07/14/20 08:21 MW [id number] 07/14/20 08:37 MW Document 07/14/20 08:26 MW [id number] 07/14/20 08:37 MW Document 07/21/20 08:31 MW [id number] 07/21/20 08:36 MW Document 07/28/20 08:37 MW [id number] 07/28/20 08:40 MW Document 08/04/20 08:18 MW [id number] 08/04/20 08:21 MW Document 08/11/20 08:23 MW [id number] 08/11/20 08:25 MW 07/14/20 07/14/20 07/21/20 08:21 08:26 08:31 Wound Center Nurse 2 #3 right manley superior medial -Time 08:25 08:30 08:33 -Correct Patient Yes Yes Yes -Correct Side, Site, Position Yes Yes Yes -Correct Procedure Yes Yes Yes -Procedure Performed Yes Yes Yes -Type of Procedure Debridement Debridement Debridement -Clinical Debridement Subcutaneous Subcutaneous Subcutaneous -Tissue Removed Subcutaneous Subcutaneous Subcutaneous -Post Debridement (cm) - Length 0.3 0.3 0.4 -Post Debridement (cm) - Width 0.3 0.3 0.4 -Post Debridement (cm) - Depth 0.3 0.2 0.4 -Total Square (Post) (cm) 0.09 0.09 0.16 -Area of Debridement (cm) - Length 0.3 0.3 0.4 -Area of Debridement (cm) - Width 0.3 0.3 0.4 -Total Square (Area) (cm) 0.09 0.09 0.16 -Tunneling No No No -Undermining/Tunneling No No No -Circular Undermining No No No -Wound/Ulcer Outcome Not Healed Not Healed Not Healed -Ulcer Cleansing Rinsed/ Rinsed/ Rinsed/ Irrigated with Irrigated with Irrigated with Saline Saline Saline -Foul Odor after Cleansing No No No -Bioengineered Tissue No No No -Bleeding Controlled with Silver Nitrate Pressure Pressure -Offloading No No No -Treatment Response Procedure Procedure Procedure Tolerated Well Tolerated Well Tolerated Well -Debridement - Subq, 1st 20sq cm Yes Yes Yes #2 RIGHT MANLEY SUPERIOR CLUSTER -Time 08:26 08:31 08:34 -Correct Patient Yes Yes Yes -Correct Side, Site, Position Yes Yes Yes -Correct Procedure Yes Yes Yes -Procedure Performed Yes Yes Yes -Type of Procedure Debridement Debridement Debridement -Clinical Debridement Subcutaneous Subcutaneous Subcutaneous -Tissue Removed Subcutaneous Subcutaneous Subcutaneous -Post Debridement (cm) - Length 4.0 4.0 4.1 -Post Debridement (cm) - Width 2.2 2.2 1.0 -Post Debridement (cm) - Depth 0.5 0.5 0.4 -Total Square (Post) (cm) 8.80 8.80 4.10 -Area of Debridement (cm) - Length 4.0 4.0 4.1 -Area of Debridement (cm) - Width 2.2 2.2 1.0 -Total Square (Area) (cm) 8.80 8.80 4.10 -Tunneling No No No -Undermining/Tunneling No No No -Circular Undermining No No No -Wound/Ulcer Outcome Not Healed Not Healed Not Healed -Ulcer Cleansing Rinsed/ Rinsed/ Rinsed/ Irrigated with Irrigated with Irrigated with Saline Saline Saline -Foul Odor after Cleansing No No -Bioengineered Tissue No No No -Bleeding Controlled with Pressure Pressure Pressure -Offloading No No No -Treatment Response Procedure Procedure Tolerated Well Tolerated Well -Debridement - Subq, 1st 20sq cm No No No Pain Scale: 0-10 Numeric Is Patient Pain Free? Yes Yes Yes 07/28/20 08/04/20 08/11/20 08:37 08:18 08:23 Wound Center Nurse 2 #3 right manley superior medial -Time 08:38 08:18 08:24 -Correct Patient Yes Yes Yes -Correct Side, Site, Position Yes Yes Yes -Correct Procedure Yes Yes Yes -Procedure Performed Yes No Yes -Type of Procedure Debridement Debridement Debridement -Clinical Debridement Subcutaneous Subcutaneous Subcutaneous -Tissue Removed Subcutaneous Subcutaneous Subcutaneous -Post Debridement (cm) - Length 0.3 0.2 0.3 -Post Debridement (cm) - Width 0.3 0.2 0.2 -Post Debridement (cm) - Depth 0.3 0.2 0.2 -Total Square (Post) (cm) 0.09 0.04 0.06 -Area of Debridement (cm) - Length 0.3 0.2 0.3 -Area of Debridement (cm) - Width 0.3 0.2 0.2 -Total Square (Area) (cm) 0.09 0.04 0.06 -Tunneling No No No -Undermining/Tunneling No No No -Circular Undermining No No No -Wound/Ulcer Outcome Not Healed Not Healed Not Healed -Ulcer Cleansing Rinsed/ Rinsed/ Rinsed/ Irrigated with Irrigated with Irrigated with Saline Saline Saline -Foul Odor after Cleansing No No No -Bioengineered Tissue No No No -Bleeding Controlled with Pressure Pressure Pressure -Offloading No No No -Treatment Response Procedure Procedure Procedure Tolerated Well Tolerated Well Tolerated Well -Debridement - Subq, 1st 20sq cm Yes Yes Yes #2 RIGHT MANLEY SUPERIOR CLUSTER -Time 08:38 08:20 08:25 -Correct Patient Yes Yes Yes -Correct Side, Site, Position Yes Yes Yes -Correct Procedure Yes Yes Yes -Procedure Performed Yes Yes -Type of Procedure Debridement Debridement Debridement -Clinical Debridement Subcutaneous Subcutaneous Subcutaneous -Tissue Removed Subcutaneous Subcutaneous Subcutaneous -Post Debridement (cm) - Length 3.6 3.6 0.7 -Post Debridement (cm) - Width 2.3 0.6 0.5 -Post Debridement (cm) - Depth 0.4 0.3 0.2 -Total Square (Post) (cm) 8.28 2.16 0.35 -Area of Debridement (cm) - Length 3.6 3.6 0.7 -Area of Debridement (cm) - Width 2.3 0.6 0.5 -Total Square (Area) (cm) 8.28 2.16 0.35 -Tunneling No No No -Undermining/Tunneling No No No -Circular Undermining No No No -Wound/Ulcer Outcome Not Healed Not Healed Not Healed -Ulcer Cleansing Rinsed/ Rinsed/ Rinsed/ Irrigated with Irrigated with Irrigated with Saline Saline Saline -Foul Odor after Cleansing No No No -Bioengineered Tissue No No No -Bleeding Controlled with Pressure Pressure Pressure -Offloading No No No -Treatment Response Procedure Procedure Procedure Tolerated Well Tolerated Well Tolerated Well -Debridement - Subq, 1st 20sq cm No No No Pain Scale: 0-10 Numeric Is Patient Pain Free? Yes Yes Yes WC - Nurse 3 - General Ulcer D/C NN Start: 07/14/20 08:09 Freq: Status: Active Protocol: Activity Type Activity Date Activity User E-Sign Co-Sign Detail Recorded Client Recorded Date Recorded By Document 07/14/20 08:37 MW [id number] 07/14/20 08:39 MW Document 07/21/20 08:43 RB [id number] 07/21/20 08:45 RB Document 07/28/20 08:54 RB [id number] 07/28/20 08:56 RB Document 08/04/20 08:34 [facility] [id number] 08/04/20 08:35 BMF Document 08/11/20 08:30 RB [id number] 08/11/20 08:31 RB 07/14/20 07/21/20 07/28/20 08:37 08:43 08:54 Wound Care Nurse 3 #3 right manley superior medial -Ulcer Cleansing Rinsed/ Rinsed/ Rinsed/ Irrigated with Irrigated with Irrigated with Saline Saline Saline -Foul Odor after Cleansing No No -Negative Pressure Wound Therapy N/A -Primary Dressing Applied Fibracol Plus Promogran NonAdherent 4x4 Contact Layer, Promogran -Other Dressing -Primary Dressing Covered/Secured with Dry Gauze & Dry Gauze,Dry Dry Gauze,Dry Roll Gauze, Gauze & Roll Gauze & Roll Secured with Gauze,Secured Gauze,Secured Tape with Tape with Tape -Fibracol Plus 4x4 1 -Promogran 1 2 #2 RIGHT MANLEY SUPERIOR CLUSTER -Ulcer Cleansing Rinsed/ Rinsed/ Rinsed/ Irrigated with Irrigated with Irrigated with Saline Saline Saline -Foul Odor after Cleansing No -Negative Pressure Wound Therapy N/A -Primary Dressing Applied -Other Dressing FIBRAOL PLUS promogran promogran -Primary Dressing Covered/Secured with Dry Gauze & Dry Gauze,Dry Dry Gauze & Roll Gauze, Gauze & Roll Roll Gauze, Secured with Gauze,Secured Secured with Tape with Tape Tape -Other Covering Right -Tubular Bandage Double Layer -Size of Tubigrip Used Size E -Size E ($) 2 -Other double layer Treatment Response Procedure Procedure Procedure Tolerated Well Tolerated Well Tolerated Well Vital Signs Blood Pressure (90/60-120/80 mm Hg) 156/86 H 145/85 H Blood Pressure Mean (mm Hg) 109 105 Source Monitor Monitor Position Sitting Semi-Fowlers Blood Pressure Location Left Arm Left Arm Pain Scale: 0-10 Numeric Is Patient Pain Free? Yes Yes Yes Teaching: Wound Center Dressing Your Wound -Person Taught Patient Patient -Teaching Method Discussion, Discussion Demonstration -Response to teaching Verbalize Verbalize understanding understanding WC - Visit Discharge Discharge Condition Stable Stable Stable Ambulatory Status Ambulatory Ambulatory Ambulatory Transportation Private Auto Private Auto Private Auto Accompanied by SELF Medication Reconcilliation completed & No No No provided to patient/care provider Clinical Summary of Care Provided Yes Yes Yes 08/04/20 08/11/20 08:34 08:30 Wound Care Nurse 3 #3 right manley superior medial -Ulcer Cleansing Rinsed/ Rinsed/ Irrigated with Irrigated with Saline Saline -Foul Odor after Cleansing No -Negative Pressure Wound Therapy -Primary Dressing Applied NonAdherent NonAdherent Contact Layer, Contact Layer Other -Other Dressing hydrogel HYDROGEL -Primary Dressing Covered/Secured with Dry Gauze & Dry Gauze, Roll Gauze, Secured with Secured with Tape Tape -Fibracol Plus 4x4 -Promogran #2 RIGHT MANLEY SUPERIOR CLUSTER -Ulcer Cleansing Rinsed/ Rinsed/ Irrigated with Irrigated with Saline Saline -Foul Odor after Cleansing No -Negative Pressure Wound Therapy -Primary Dressing Applied NonAdherent NonAdherent Contact Layer, Contact Layer Other -Other Dressing hydrogel HYDROGEL -Primary Dressing Covered/Secured with Dry Gauze & Dry Gauze, Roll Gauze, Secured with Secured with Tape Tape -Other Covering drsg per r tricia rn Right -Tubular Bandage Single Layer -Size of Tubigrip Used Size E -Size E ($) 1 -Other pts own double layer tubi Treatment Response Procedure Tolerated Well Vital Signs Blood Pressure (90/60-120/80 mm Hg) 138/81 H Blood Pressure Mean (mm Hg) 100 Source Monitor Position Semi-Fowlers Blood Pressure Location Left Arm Pain Scale: 0-10 Numeric Is Patient Pain Free? Yes Yes Teaching: Wound Center Dressing Your Wound -Person Taught -Teaching Method -Response to teaching WC - Visit Discharge Discharge Condition Stable Stable Ambulatory Status Ambulatory Ambulatory Transportation Private Auto Private Auto Accompanied by Medication Reconcilliation completed & No provided to patient/care provider Clinical Summary of Care Provided Yes Wound debrided: Manley cluster Laterality: Right Type of Debridement: Excisional debridement Anesthesia Used: 5% Lidocaine Gel Depth: Down to and including healthy tissue, in the subcutaneous layer Percentage of wound debrided: 100 Instrument Used: 3mm curette Tissue Removed: Fibrin and slough Assessment/Plan Active Problems (Last Updated 09/20/17 @ 14:24 by Sue N Cogar) Psoriasis (a type of skin inflammation) (Acute) Nonhealing nonsurgical wound with fat layer exposed (Acute) Non-pressure chronic ulcer right lower leg, 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 Long-term use of Coumadin. Nonhealing nonsurgical cluster wound right manley. Chronic nonhealing nonpressure wound right lower manley Plan: Wash leg with Hibiclens apply Promogran to wound base cover with Adaptic then gauze. Double layer Tubigrip daily. Follow-up in 2 week. Did apply for skin sub-to run through insurance
== END 2020-08-12 23:59 ==
LOC: WC 08:00
PROVIDERS: PCP Family Medicine; Referring Provider Family Medicine; Visit Provider Nurse Practitioner
DX: L97.811 Non-pressure chronic ulcer of other part of right lower leg limited to breakdown of skin (principal); L40.9 Psoriasis, unspecified; I48.91 Unspecified atrial fibrillation; Z79.01 Long term (current) use of anticoagulants
CPT/HCPCS: 11042

== ENCOUNTER → 2020-08-11 08:59 | Outpatient (CLI) | payer BC, SELFPAY ==
[2020-08-11 08:06] VITALS: BMI 30.7
[2020-08-11 10:46] LABS: Anion Gap 4 (5-15); BUN 17 mg/dL (7-18); BUN/Creat Ratio 21.8 RATIO (10-20); Calcium,Total 8.4 mg/dL (8.5-10.1); Chloride 104 mmol/L (98-107); Creatinine, Serum 0.78 mg/dL (0.70-1.30); EST Glomerular Filtration Rate 107 mL/min (>60); Est Glom Filt Rate - Afr Amer 130 mL/min (>60); Glucose 82 mg/dL (74-106); Magnesium 2.1 mg/dL (1.6-2.6); Potassium 3.6 mmol/L (3.5-5.1); Sodium Level 139 mmol/L (136-145)
== END ==
PROVIDERS: PCP Family Medicine
DX: I48.91 Unspecified atrial fibrillation (principal)
CPT/HCPCS: 36415; 80048; 83735

== ENCOUNTER 2020-09-08 08:00 | Outpatient (RCR) | payer BC, SELFPAY ==
[2020-08-13 00:28] VITALS: BP 138/81; PULSE 57; RESP 16; TEMP 36.2
[2020-08-25 08:11] VITALS: BP 151/80; PULSE 55; RESP 16; TEMP 36.4; BMI 30.7
--- NOTE | 2020-08-25 08:36 | PCM.WC.PN ---
(1) Non-pressure chronic ulcer right lower leg, limited to breakdown skin Status: Acute Code(s): L97.911 - Non-pressure chronic ulcer of unspecified part of right lower leg limited to breakdown of skin (2) Nonhealing nonsurgical wound with fat layer exposed Status: Acute Code(s): T14.8XXA - Other injury of unspecified body region, initial encounter (3) Psoriasis (a type of skin inflammation) Status: Chronic Code(s): L40.9 - Psoriasis, unspecified Type of Wound Date of Service: 08/25/20 Chief Complaint: Follow-up right manley traumatic wound History of Wound: 64-year-old white male with history of psoriasis on both shins hit his right leg against a elevator shaft a month prior to his arrival here the first part of March and developed large deep open wounds nonhealing. Patient was seen by his primary doctor and was put on doxycycline and given Silvadene cream for care. Progress of Wound: A chronic greater than 30-day old wound from trauma to the right manley superior wound shows tendon inferior wound has healed. Obtained some x-ray of the tib-fib are negative. He had developed a new open area that started later on but is almost healed this week. Culture showed 6 different bacteria is gone with an anaerobe. We will stopped the Fibracol and changed to Promogran . Skin substitute was denied by his insurance company. Healing nicely on the Promogran will continue. Continues to close wound much smaller. Continues to get smaller bottom half of the wound is healed we will continue using Promogran - Physical Exam Vital Signs Temp Pulse Resp BP 97.5 F L 55 L 16 151/80 H 08/25/20 08:11 08/25/20 08:11 08/25/20 08:11 08/25/20 08:11 General: Oriented x3, Cooperative, Well developed HEENT: Atraumatic, PERRLA Oral: Moist Mucosa Neck: Supple, No JVD Lungs: Clear to auscultation, Normal air movement Cardiovascular: Regular rate, Regular Rhythm Abdomen: Bowel Sounds Present, Soft, Non Tender, No Hepato-splenomegaly Extremities: No clubbing, No edema Skin: No rashes, Ulcer/ Wound - Right manley 2 pinpoint holes should be healed within the next week Wound Measurements and Assessment WC - Nurse 1 - General Ulcer Measurement Start: 08/25/20 08:10 Freq: Status: Active Protocol: Activity Type Activity Date Activity User E-Sign Co-Sign Detail Recorded Client Recorded Date Recorded By Document 08/25/20 08:11 MW [id number] 08/25/20 08:17 MW 08/25/20 08:11 Wound Center Nurse 1 [Ulcer Assessment] #3 right manley superior medial -Combined with other wound No -Current Size (cm) - Length 0.1 -Current Size (cm) - Width 0.1 -Current Size (cm) - Depth 0.1 -Total Square Cm 0.01 -Photo Taken No -Epithelialization None Present -Tunneling No -Undermining/Tunneling No -Circular Undermining No -Wound Margin Flat & Intact -Granulation Amt None Present (0 %) -Granulation Quality N/A -Slough/Fibrin Yes -Necrosis Amt Large (67-100%) -Necrotic Tissue Type Adherent Slough -Structure Exposed N/A -Texture ([place]-wound Skin Appearance) No Abnormality, Assessed, Scarring -Moisture ([place]-wound Skin Appearance No Abnormality, ) Assessed -Color ([place]-wound Skin Appearance) No Abnormality, Assessed -Temperature ([place]-wound Skin No Abnormality Appearance) (Pt Warm) -Tenderness on Palpation ([place]-wound Yes Skin Appearance) -Ulcer Cleansing Rinsed/ Irrigated with Saline -Foul Odor after Cleansing No -Anesthetic Used 4% Lidocaine Solution #2 RIGHT MANLEY SUPERIOR CLUSTER -Combined with other wound No -Current Size (cm) - Length 0.1 -Current Size (cm) - Width 0.1 -Current Size (cm) - Depth 0.1 -Total Square Cm 0.01 -Photo Taken No -Epithelialization None Present -Tunneling No -Undermining/Tunneling No -Circular Undermining No -Exudate Amt Medium -Exudate Type Serosanguineous -Wound Margin Flat & Intact -Granulation Amt None Present (0 %) -Granulation Quality N/A -Slough/Fibrin Yes -Necrosis Amt Large (67-100%) -Necrotic Tissue Type Adherent Slough -Structure Exposed N/A -Texture ([place]my[place]-wound Skin Appearance) Assessed, Scarring -Moisture ([place]-wound Skin Appearance No Abnormality, ) Assessed -Color ([place]-wound Skin Appearance) No Abnormality, Assessed -Temperature ([place]-wound Skin No Abnormality Appearance) (Pt Warm) -Tenderness on Palpation ([place]-wound Yes Skin Appearance) -Ulcer Cleansing Rinsed/ Irrigated with Saline -Foul Odor after Cleansing No -Anesthetic Used 4% Lidocaine Solution [Edema Assessment] -Lower Limb Edema Present Yes -Right Calf (cm) 39.9 -Right Ankle (cm) 22.5 WC - Nurse 2 - General Ulcer CM Notes Start: 08/25/20 08:10 Freq: Status: Active Protocol: Activity Type Activity Date Activity User E-Sign Co-Sign Detail Recorded Client Recorded Date Recorded By Document 08/25/20 08:17 MW [id number] 08/25/20 08:25 MW 08/25/20 08:17 Wound Center Nurse 2 [Procedure/Treatment] #3 right manley superior medial -Time 08:19 -Correct Patient Yes -Correct Side, Site, Position Yes -Correct Procedure Yes -Procedure Performed Yes -Type of Procedure Debridement -Clinical Debridement Subcutaneous -Tissue Removed Subcutaneous -Post Debridement (cm) - Length 0.1 -Post Debridement (cm) - Width 0.2 -Post Debridement (cm) - Depth 0.1 -Total Square (Post) (cm) 0.02 -Area of Debridement (cm) - Length 0.1 -Area of Debridement (cm) - Width 0.2 -Total Square (Area) (cm) 0.02 -Tunneling No -Undermining/Tunneling No -Circular Undermining No -Wound/Ulcer Outcome Not Healed -Ulcer Cleansing Rinsed/ Irrigated with Saline -Foul Odor after Cleansing No -Bioengineered Tissue No -Bleeding Controlled with Pressure -Offloading No -Treatment Response Procedure Tolerated Well -Debridement - Subq, 1st 20sq cm Yes #2 RIGHT MANLEY SUPERIOR CLUSTER -Time 08:20 -Correct Patient Yes -Correct Side, Site, Position Yes -Correct Procedure Yes -Procedure Performed Yes -Type of Procedure Debridement -Clinical Debridement Subcutaneous -Tissue Removed Subcutaneous -Post Debridement (cm) - Length 0.2 -Post Debridement (cm) - Width 0.2 -Post Debridement (cm) - Depth 0.2 -Total Square (Post) (cm) 0.04 -Area of Debridement (cm) - Length 0.2 -Area of Debridement (cm) - Width 0.2 -Total Square (Area) (cm) 0.04 -Tunneling No -Undermining/Tunneling No -Circular Undermining No -Wound/Ulcer Outcome Not Healed -Ulcer Cleansing Rinsed/ Irrigated with Saline -Foul Odor after Cleansing No -Bioengineered Tissue No -Bleeding Controlled with Pressure -Offloading No -Treatment Response Procedure Tolerated Well -Debridement - Subq, 1st 20sq cm No [See Physician Procedure note for Specifics] Pain Scale: 0-10 Numeric [Pain] -Is Patient Pain Free? Yes WC - Nurse 3 - General Ulcer D/C NN Start: 08/25/20 08:10 Freq: Status: Active Protocol: Activity Type Activity Date Activity User E-Sign Co-Sign Detail Recorded Client Recorded Date Recorded By Document 08/25/20 08:25 MW [id number] 08/25/20 08:26 MW 08/25/20 08:25 Wound Care Nurse 3 [Wound Dressing] #3 right manley superior medial -Ulcer Cleansing Rinsed/ Irrigated with Saline -Foul Odor after Cleansing No -Negative Pressure Wound Therapy N/A -Primary Dressing Applied NonAdherent Contact Layer, Promogran -Primary Dressing Covered/Secured Dry Gauze, with Secured with Tape -Promogran 1 #2 RIGHT MANLEY SUPERIOR CLUSTER -Ulcer Cleansing Rinsed/ Irrigated with Saline -Foul Odor after Cleansing No -Negative Pressure Wound Therapy N/A -Other Dressing promogran -Primary Dressing Covered/Secured Dry Gauze, with Secured with Tape [Compression Applied] Right -Tubular Bandage Double Layer -Size of Tubigrip Used Size E [Post Procedure Tolerated] -Treatment Response Procedure Tolerated Well Teaching: Wound Center [Wound Center Education] (Items with an * have Printed Materials Available- Please identify what is given to patient under the Teaching materials given to patient and caregiver Section. Dressing Your Wound -Person Taught Patient -Teaching Method Discussion -Response to teaching Verbalize understanding - Visit Discharge [Visit Discharge Information] -Discharge Condition Stable -Ambulatory Status Ambulatory -Transportation Private Auto -Accompanied by self -Medication Reconcilliation completed No & provided to patient/care provider -Clinical Summary of Care Provided Yes Musculoskeletal: No Tenderness to Palpation of Joints or Extremities Lymphatic: No Cervical, Supraclavicular, or Inguinal Adenopathy Neurological: Cranial nerves II-XII grossly intact, Neuro grossly intact Psych/Mental Status: Normal Affect, Appropriate Debridement Note Post-Debridement Measurements/Treatment WC - Nurse 2 - General Ulcer CM Notes Start: 08/25/20 08:10 Freq: Status: Active Protocol: Activity Type Activity Date Activity User E-Sign Co-Sign Detail Recorded Client Recorded Date Recorded By Document 08/25/20 08:17 MW [id number] 08/25/20 08:25 MW 08/25/20 08:17 Wound Center Nurse 2 #3 right manley superior medial -Time 08:19 -Correct Patient Yes -Correct Side, Site, Position Yes -Correct Procedure Yes -Procedure Performed Yes -Type of Procedure Debridement -Clinical Debridement Subcutaneous -Tissue Removed Subcutaneous -Post Debridement (cm) - Length 0.1 -Post Debridement (cm) - Width 0.2 -Post Debridement (cm) - Depth 0.1 -Total Square (Post) (cm) 0.02 -Area of Debridement (cm) - Length 0.1 -Area of Debridement (cm) - Width 0.2 -Total Square (Area) (cm) 0.02 -Tunneling No -Undermining/Tunneling No -Circular Undermining No -Wound/Ulcer Outcome Not Healed -Ulcer Cleansing Rinsed/ Irrigated with Saline -Foul Odor after Cleansing No -Bioengineered Tissue No -Bleeding Controlled with Pressure -Offloading No -Treatment Response Procedure Tolerated Well -Debridement - Subq, 1st 20sq cm Yes #2 RIGHT MANLEY SUPERIOR CLUSTER -Time 08:20 -Correct Patient Yes -Correct Side, Site, Position Yes -Correct Procedure Yes -Procedure Performed Yes -Type of Procedure Debridement -Clinical Debridement Subcutaneous -Tissue Removed Subcutaneous -Post Debridement (cm) - Length 0.2 -Post Debridement (cm) - Width 0.2 -Post Debridement (cm) - Depth 0.2 -Total Square (Post) (cm) 0.04 -Area of Debridement (cm) - Length 0.2 -Area of Debridement (cm) - Width 0.2 -Total Square (Area) (cm) 0.04 -Tunneling No -Undermining/Tunneling No -Circular Undermining No -Wound/Ulcer Outcome Not Healed -Ulcer Cleansing Rinsed/ Irrigated with Saline -Foul Odor after Cleansing No -Bioengineered Tissue No -Bleeding Controlled with Pressure -Offloading No -Treatment Response Procedure Tolerated Well -Debridement - Subq, 1st 20sq cm No Pain Scale: 0-10 Numeric Is Patient Pain Free? Yes WC - Nurse 3 - General Ulcer D/C NN Start: 08/25/20 08:10 Freq: Status: Active Protocol: Activity Type Activity Date Activity User E-Sign Co-Sign Detail Recorded Client Recorded Date Recorded By Document 08/25/20 08:25 MW [id number] 08/25/20 08:26 MW 08/25/20 08:25 Wound Care Nurse 3 #3 right manley superior medial -Ulcer Cleansing Rinsed/ Irrigated with Saline -Foul Odor after Cleansing No -Negative Pressure Wound Therapy N/A -Primary Dressing Applied NonAdherent Contact Layer, Promogran -Primary Dressing Covered/Secured with Dry Gauze, Secured with Tape -Promogran 1 #2 RIGHT MANLEY SUPERIOR CLUSTER -Ulcer Cleansing Rinsed/ Irrigated with Saline -Foul Odor after Cleansing No -Negative Pressure Wound Therapy N/A -Other Dressing promogran -Primary Dressing Covered/Secured with Dry Gauze, Secured with Tape Right -Tubular Bandage Double Layer -Size of Tubigrip Used Size E Treatment Response Procedure Tolerated Well Teaching: Wound Center Dressing Your Wound -Person Taught Patient -Teaching Method Discussion -Response to teaching Verbalize understanding WC - Visit Discharge Discharge Condition Stable Ambulatory Status Ambulatory Transportation Private Auto Accompanied by self Medication Reconcilliation completed & No provided to patient/care provider Clinical Summary of Care Provided Yes Wound debrided: Right upper abscessed wound Type of Debridement: Excisional debridement Anesthesia Used: 5% Lidocaine Gel Depth: Down to and including healthy tissue, in the subcutaneous layer Percentage of wound debrided: 100 Instrument Used: 3mm curette Tissue Removed: Product and fibrin Severity: Limited To Skin Breakdown Amount of bleeding with debridement: None Bleeding Controlled with: Pressure Patient tolerated procedure well - Additional Wound Wound debrided: Upper manley Laterality: Right Type of Debridement: Excisional debridement Depth: Down to and including healthy tissue Percentage of wound debrided: 100 Instrument Used: 3mm curette Tissue Removed: Product and fibrin Severity: Limited To Skin Breakdown Amount of bleeding with debridement: None Bleeding Controlled with: Pressure Patient tolerated procedure: Patient tolerated procedure well Assessment/Plan Assessment: Atrial fib. Long-term use of Coumadin. Nonhealing nonsurgical cluster wound right manley. Chronic nonhealing nonpressure wound right lower manley Plan: Wash leg with Hibiclens apply Promogran to wound base cover with Adaptic then gauze. Double layer Tubigrip daily. Follow-up in 1 week. Did apply for skin sub-to run through insurance
[2020-09-01 08:43] VITALS: BP 143/79; PULSE 53; RESP 18; TEMP 36; BMI 30.7
--- NOTE | 2020-09-01 09:25 | PN.PCM_ITS ---
(1) Non-pressure chronic ulcer right lower leg, limited to breakdown skin Status: Acute Code(s): L97.911 - Non-pressure chronic ulcer of unspecified part of right lower leg limited to breakdown of skin (2) Nonhealing nonsurgical wound with fat layer exposed Status: Acute Code(s): T14.8XXA - Other injury of unspecified body region, initial encounter (3) Psoriasis (a type of skin inflammation) Status: Chronic Code(s): L40.9 - Psoriasis, unspecified Type of Wound Date of Service: 09/01/20 Chief Complaint: Follow-up right manley traumatic wound History of Wound: 64-year-old white male with history of psoriasis on both shins hit his right leg against a elevator shaft a month prior to his arrival here the first part of March and developed large deep open wounds nonhealing. Patient was seen by his primary doctor and was put on doxycycline and given Silvadene cream for care. Progress of Wound: A chronic greater than 30-day old wound from trauma to the right manley superior wound shows tendon inferior wound has healed. Obtained some x-ray of the tib-fib are negative. He had developed a new open area that started later on but is almost healed this week. Culture showed 6 different bacteria is gone with an anaerobe. We will stopped the Fibracol and changed to Promogran . Skin substitute was denied by his insurance company. Healing nicely on the Promogran will continue. Continues to close wound much smaller. The superior upper manley is healed that had abcessed . Continues to get smaller bottom half of the wound is healed we will continue using Promogran - Physical Exam Vital Signs Temp Pulse Resp BP 96.8 F L 53 L 18 143/79 H 09/01/20 08:43 09/01/20 08:43 09/01/20 08:43 09/01/20 08:43 General: Oriented x3, Cooperative, Well developed HEENT: Atraumatic, PERRLA Oral: Moist Mucosa Neck: Supple, No JVD Lungs: Clear to auscultation, Normal air movement Cardiovascular: Regular rate, Regular Rhythm Abdomen: Bowel Sounds Present, Soft, Non Tender, No Hepato-splenomegaly Extremities: No clubbing, No edema Skin: Ulcer/ Wound - Right manley superior medial is healed right manley superior still open much smaller Wound Measurements and Assessment WC - Nurse 1 - General Ulcer Measurement Start: 08/25/20 08:10 Freq: Status: Active Protocol: Activity Type Activity Date Activity User E-Sign Co-Sign Detail Recorded Client Recorded Date Recorded By Document 09/01/20 08:43 DL [id number] 09/01/20 08:48 DL 09/01/20 08:43 Wound Center Nurse 1 [Ulcer Assessment] #3 right manley superior medial -Current Size (cm) - Length 0.2 -Current Size (cm) - Width 0.2 -Current Size (cm) - Depth 0.1 -Total Square Cm 0.04 -Photo Taken No -Exudate Amt None Present -Wound Margin Distinct, Outline Attached -Granulation Amt Small (1-33%) -Granulation Quality [place] -Necrosis Amt None Present (0 %) -Structure Exposed N/A -Texture (Sowmya-wound Skin Appearance) Scarring -Moisture (S[place]my[place]-wound Skin Appearance No Abnormality ) -Color (S[place]mya-wound Skin Appearance) Rubor -Temperature ([place]-wound Skin No Abnormality Appearance) (Pt Warm) -Tenderness on Palpation (Sowmy[place]-wound No Skin Appearance) -Ulcer Cleansing Wound Cleanser -Foul Odor after Cleansing No -Anesthetic Used 4% Lidocaine Solution #2 RIGHT MANLEY SUPERIOR CLUSTER -Current Size (cm) - Length 0.5 -Current Size (cm) - Width 0.5 -Current Size (cm) - Depth 0.2 -Total Square Cm 0.25 -Photo Taken No -Exudate Amt None Present -Wound Margin Distinct, Outline Attached -Granulation Amt Large (67-100%) -Granulation Quality Red -Necrosis Amt None Present (0 %) -Structure Exposed N/A -Texture (Sowmya-wound Skin Appearance) Scarring -Moisture ([place]-wound Skin Appearance No Abnormality ) -Color (S[place]my[place]-wound Skin Appearance) Rubor -Temperature ([place]-wound Skin No Abnormality Appearance) (Pt Warm) -Tenderness on Palpation (Sowmya-wound No Skin Appearance) -Ulcer Cleansing Wound Cleanser -Foul Odor after Cleansing No -Anesthetic Used 4% Lidocaine Solution [Edema Assessment] -Right Calf (cm) 39.6 -Right Ankle (cm) 22.5 WC - Nurse 2 - General Ulcer CM Notes Start: 08/25/20 08:10 Freq: Status: Active Protocol: Activity Type Activity Date Activity User E-Sign Co-Sign Detail Recorded Client Recorded Date Recorded By Document 09/01/20 09:05 MW [id number] 09/01/20 09:06 MW 09/01/20 09:05 Wound Center Nurse 2 [Procedure/Treatment] #3 right manley superior medial -Time 09:05 -Correct Patient Yes -Correct Side, Site, Position Yes -Correct Procedure Yes -Procedure Performed No -Post Debridement (cm) - Length 0 -Post Debridement (cm) - Width 0 -Post Debridement (cm) - Depth 0 -Total Square (Post) (cm) 0 -Wound/Ulcer Outcome Healed- Epithelialized #2 RIGHT MANLEY SUPERIOR CLUSTER -Time 09:06 -Correct Patient Yes -Correct Side, Site, Position Yes -Correct Procedure Yes -Procedure Performed Yes -Type of Procedure Debridement -Clinical Debridement Subcutaneous -Tissue Removed Subcutaneous -Post Debridement (cm) - Length 0.5 -Post Debridement (cm) - Width 0.5 -Post Debridement (cm) - Depth 0.2 -Total Square (Post) (cm) 0.25 -Area of Debridement (cm) - Length 0.5 -Area of Debridement (cm) - Width 0.5 -Total Square (Area) (cm) 0.25 -Tunneling No -Undermining/Tunneling No -Circular Undermining No -Wound/Ulcer Outcome Not Healed -Ulcer Cleansing Rinsed/ Irrigated with Saline -Foul Odor after Cleansing No -Bioengineered Tissue No -Bleeding Controlled with Pressure -Offloading No -Treatment Response Procedure Tolerated Well -Debridement - Subq, 1st 20sq cm Yes [See Physician Procedure note for Specifics] Pain Scale: 0-10 Numeric [Pain] -Is Patient Pain Free? Yes - Nurse 3 - General Ulcer D/C NN Start: 08/25/20 08:10 Freq: Status: Active Protocol: Activity Type Activity Date Activity User E-Sign Co-Sign Detail Recorded Client Recorded Date Recorded By Document 09/01/20 09:13 KR [id number] 09/01/20 09:13 KR 09/01/20 09:13 Wound Care Nurse 3 [Wound Dressing] #2 RIGHT MANLEY SUPERIOR CLUSTER -Ulcer Cleansing Rinsed/ Irrigated with Saline -Primary Dressing Applied Promogran -Primary Dressing Covered/Secured Dry Gauze, with Secured with Tape -Promogran 1 Pain Scale: 0-10 Numeric [Pain] -Is Patient Pain Free? Yes - Visit Discharge [Visit Discharge Information] -Discharge Condition Stable -Ambulatory Status Ambulatory -Transportation Private Auto Musculoskeletal: No Tenderness to Palpation of Joints or Extremities Lymphatic: No Cervical, Supraclavicular, or Inguinal Adenopathy Neurological: Cranial nerves II-XII grossly intact, Neuro grossly intact Psych/Mental Status: Normal Affect, Appropriate Debridement Note Post-Debridement Measurements/Treatment WC - Nurse 2 - General Ulcer CM Notes Start: 08/25/20 08:10 Freq: Status: Active Protocol: Activity Type Activity Date Activity User E-Sign Co-Sign Detail Recorded Client Recorded Date Recorded By Document 08/25/20 08:17 MW [id number] 08/25/20 08:25 MW Document 09/01/20 09:05 MW [id number] 09/01/20 09:06 MW 08/25/20 09/01/20 08:17 09:05 Wound Center Nurse 2 #3 right manley superior medial -Time 08:19 09:05 -Correct Patient Yes Yes -Correct Side, Site, Position Yes Yes -Correct Procedure Yes Yes -Procedure Performed Yes No -Type of Procedure Debridement -Clinical Debridement Subcutaneous -Tissue Removed Subcutaneous -Post Debridement (cm) - Length 0.1 0 -Post Debridement (cm) - Width 0.2 0 -Post Debridement (cm) - Depth 0.1 0 -Total Square (Post) (cm) 0.02 0 -Area of Debridement (cm) - Length 0.1 -Area of Debridement (cm) - Width 0.2 -Total Square (Area) (cm) 0.02 -Tunneling No -Undermining/Tunneling No -Circular Undermining No -Wound/Ulcer Outcome Not Healed Healed- Epithelialized -Ulcer Cleansing Rinsed/ Irrigated with Saline -Foul Odor after Cleansing No -Bioengineered Tissue No -Bleeding Controlled with Pressure -Offloading No -Treatment Response Procedure Tolerated Well -Debridement - Subq, 1st 20sq cm Yes #2 RIGHT MANLEY SUPERIOR CLUSTER -Time 08:20 09:06 -Correct Patient Yes Yes -Correct Side, Site, Position Yes Yes -Correct Procedure Yes Yes -Procedure Performed Yes Yes -Type of Procedure Debridement Debridement -Clinical Debridement Subcutaneous Subcutaneous -Tissue Removed Subcutaneous Subcutaneous -Post Debridement (cm) - Length 0.2 0.5 -Post Debridement (cm) - Width 0.2 0.5 -Post Debridement (cm) - Depth 0.2 0.2 -Total Square (Post) (cm) 0.04 0.25 -Area of Debridement (cm) - Length 0.2 0.5 -Area of Debridement (cm) - Width 0.2 0.5 -Total Square (Area) (cm) 0.04 0.25 -Tunneling No No -Undermining/Tunneling No No -Circular Undermining No No -Wound/Ulcer Outcome Not Healed Not Healed -Ulcer Cleansing Rinsed/ Rinsed/ Irrigated with Irrigated with Saline Saline -Foul Odor after Cleansing No No -Bioengineered Tissue No No -Bleeding Controlled with Pressure Pressure -Offloading No No -Treatment Response Procedure Procedure Tolerated Well Tolerated Well -Debridement - Subq, 1st 20sq cm No Yes Pain Scale: 0-10 Numeric Is Patient Pain Free? Yes Yes - Nurse 3 - General Ulcer D/C NN Start: 08/25/20 08:10 Freq: Status: Active Protocol: Activity Type Activity Date Activity User E-Sign Co-Sign Detail Recorded Client Recorded Date Recorded By Document 08/25/20 08:25 MW [id number] 08/25/20 08:26 MW Document 09/01/20 09:13 KR [id number] 09/01/20 09:13 KR 08/25/20 09/01/20 08:25 09:13 Wound Care Nurse 3 #3 right manley superior medial -Ulcer Cleansing Rinsed/ Irrigated with Saline -Foul Odor after Cleansing No -Negative Pressure Wound Therapy N/A -Primary Dressing Applied NonAdherent Contact Layer, Promogran -Primary Dressing Covered/Secured with Dry Gauze, Secured with Tape -Promogran 1 #2 RIGHT MANLEY SUPERIOR CLUSTER -Ulcer Cleansing Rinsed/ Rinsed/ Irrigated with Irrigated with Saline Saline -Foul Odor after Cleansing No -Negative Pressure Wound Therapy N/A -Primary Dressing Applied Promogran -Other Dressing promogran -Primary Dressing Covered/Secured with Dry Gauze, Dry Gauze, Secured with Secured with Tape Tape -Promogran 1 Right -Tubular Bandage Double Layer -Size of Tubigrip Used Size E Treatment Response Procedure Tolerated Well Pain Scale: 0-10 Numeric Is Patient Pain Free? Yes Teaching: Wound Center Dressing Your Wound -Person Taught Patient -Teaching Method Discussion -Response to teaching Verbalize understanding WC - Visit Discharge Discharge Condition Stable Stable Ambulatory Status Ambulatory Ambulatory Transportation Private Auto Private Auto Accompanied by self Medication Reconcilliation completed & No provided to patient/care provider Clinical Summary of Care Provided Yes Wound debrided: Right superior manley Type of Debridement: Excisional debridement Anesthesia Used: 4% Lidocaine Solution Depth: Down to and including healthy tissue, to muscle Percentage of wound debrided: 100 Instrument Used: 3mm curette Tissue Removed: Fibrin Severity: Limited To Skin Breakdown Amount of bleeding with debridement: None Bleeding Controlled with: Pressure Patient tolerated procedure well Assessment/Plan Active Problems (Last Updated 09/20/17 @ 14:24 by Sue Adkins) Psoriasis (a type of skin inflammation) (Chronic) Nonhealing nonsurgical wound with fat layer exposed (Acute) Non-pressure chronic ulcer right lower leg, limited to breakdown skin (Acute) Assessment: Atrial fib. Long-term use of Coumadin. Nonhealing nonsurgical cluster wound right manley. Chronic nonhealing nonpressure wound right lower manley Plan: Wash leg with Hibiclens apply Promogran to wound base cover with Adaptic then gauze. Double layer Tubigrip daily. Follow-up in 1 week. Did apply for skin sub-to run through insurance
[2020-09-08 08:08] VITALS: BP 144/85; PULSE 59; TEMP 36; BMI 30.7
--- NOTE | 2020-09-08 08:23 | PCM.WC.PN ---
(1) Non-pressure chronic ulcer right lower leg, limited to breakdown skin Status: Acute Code(s): L97.911 - Non-pressure chronic ulcer of unspecified part of right lower leg limited to breakdown of skin (2) Nonhealing nonsurgical wound with fat layer exposed Status: Acute Code(s): T14.8XXA - Other injury of unspecified body region, initial encounter (3) Psoriasis (a type of skin inflammation) Status: Chronic Code(s): L40.9 - Psoriasis, unspecified Type of Wound Date of Service: 09/08/20 Chief Complaint: Follow-up right manley traumatic wound History of Wound: 64-year-old white male with history of psoriasis on both shins hit his right leg against a elevator shaft a month prior to his arrival here the first part of March and developed large deep open wounds nonhealing. Patient was seen by his primary doctor and was put on doxycycline and given Silvadene cream for care. Progress of Wound: Today the wound is healed - Physical Exam Vital Signs Temp Pulse Resp BP 96.8 F L 59 L 18 144/85 H 09/08/20 08:08 09/08/20 08:08 09/01/20 08:43 09/08/20 08:08 General: Oriented x3, Cooperative, Well developed HEENT: Atraumatic, PERRLA Oral: Moist Mucosa Neck: Supple, No JVD Lungs: Clear to auscultation, Normal air movement Cardiovascular: Regular rate, Regular Rhythm Abdomen: Bowel Sounds Present, Soft, Non Tender, No Hepato-splenomegaly Extremities: No clubbing, No edema Skin: Ulcer/ Wound - Right manley wound resolved Wound Measurements and Assessment WC - Nurse 1 - General Ulcer Measurement Start: 08/25/20 08:10 Freq: Status: Active Protocol: Activity Type Activity Date Activity User E-Sign Co-Sign Detail Recorded Client Recorded Date Recorded By Document 09/08/20 08:08 [email or web address] [id number] 09/08/20 08:12 [email or web address] 09/08/20 08:08 Wound Center Nurse 1 [Ulcer Assessment] #2 RIGHT MANLEY SUPERIOR CLUSTER -Current Size (cm) - Length 2.5 -Current Size (cm) - Width 0.5 -Current Size (cm) - Depth 0.2 -Total Square Cm 1.25 -Exudate Amt Small -Exudate Type Serosanguineous -Wound Margin Distinct, Outline Attached -Granulation Amt Small (1-33%) -Granulation Quality [place] -Necrosis Amt Small (1-33%) -Necrotic Tissue Type Adherent Slough -Texture (Sowmya-wound Skin Appearance) Assessed, Scarring -Moisture ([place]-wound Skin Appearance No Abnormality, ) Assessed -Color (S[place]-wound Skin Appearance) No Abnormality, Assessed -Temperature ([place]-wound Skin No Abnormality Appearance) (Pt Warm) -Tenderness on Palpation (Sowmya-wound No Skin Appearance) -Ulcer Cleansing Rinsed/ Irrigated with Saline -Foul Odor after Cleansing No -Anesthetic Used 4% Lidocaine Solution WC - Nurse 2 - General Ulcer CM Notes Start: 08/25/20 08:10 Freq: Status: Active Protocol: Activity Type Activity Date Activity User E-Sign Co-Sign Detail Recorded Client Recorded Date Recorded By Document 09/08/20 08:20 MW [id number] 09/08/20 08:23 MW 09/08/20 08:20 Wound Center Nurse 2 [Procedure/Treatment] -Time 08:20 -Correct Patient Yes -Correct Side, Site, Position Yes -Correct Procedure Yes -Procedure Performed No -Post Debridement (cm) - Length 0 -Post Debridement (cm) - Width 0 -Post Debridement (cm) - Depth 0 -Total Square (Post) (cm) 0 -Wound/Ulcer Outcome Healed- Epithelialized [See Physician Procedure note for Specifics] Pain Scale: 0-10 Numeric [Pain] -Is Patient Pain Free? Yes Musculoskeletal: No Tenderness to Palpation of Joints or Extremities Lymphatic: No Cervical, Supraclavicular, or Inguinal Adenopathy Neurological: Cranial nerves II-XII grossly intact, Neuro grossly intact Psych/Mental Status: Normal Affect, Appropriate Debridement Note Post-Debridement Measurements/Treatment - Nurse 2 - General Ulcer CM Notes Start: 08/25/20 08:10 Freq: Status: Active Protocol: Activity Type Activity Date Activity User E-Sign Co-Sign Detail Recorded Client Recorded Date Recorded By Document 08/25/20 08:17 MW [id number] 08/25/20 08:25 MW Document 09/01/20 09:05 MW [id number] 09/01/20 09:06 MW Document 09/08/20 08:20 MW [id number] 09/08/20 08:23 MW 01/13/21 01/20/21 01/27/21 08:17 09:05 08:20 Wound Center Nurse 2 #3 right manley superior medial -Time 08:19 09:05 -Correct Patient Yes Yes -Correct Side, Site, Position Yes Yes -Correct Procedure Yes Yes -Procedure Performed Yes No -Type of Procedure Debridement -Clinical Debridement Subcutaneous -Tissue Removed Subcutaneous -Post Debridement (cm) - Length 0.1 0 -Post Debridement (cm) - Width 0.2 0 -Post Debridement (cm) - Depth 0.1 0 -Total Square (Post) (cm) 0.02 0 -Area of Debridement (cm) - Length 0.1 -Area of Debridement (cm) - Width 0.2 -Total Square (Area) (cm) 0.02 -Tunneling No -Undermining/Tunneling No -Circular Undermining No -Wound/Ulcer Outcome Not Healed Healed- Epithelialized -Ulcer Cleansing Rinsed/ Irrigated with Saline -Foul Odor after Cleansing No -Bioengineered Tissue No -Bleeding Controlled with Pressure -Offloading No -Treatment Response Procedure Tolerated Well -Debridement - Subq, 1st 20sq cm Yes #2 RIGHT MANLEY SUPERIOR CLUSTER -Time 08:20 09:06 08:20 -Correct Patient Yes Yes Yes -Correct Side, Site, Position Yes Yes Yes -Correct Procedure Yes Yes Yes -Procedure Performed Yes Yes No -Type of Procedure Debridement Debridement -Clinical Debridement Subcutaneous Subcutaneous -Tissue Removed Subcutaneous Subcutaneous -Post Debridement (cm) - Length 0.2 0.5 0 -Post Debridement (cm) - Width 0.2 0.5 0 -Post Debridement (cm) - Depth 0.2 0.2 0 -Total Square (Post) (cm) 0.04 0.25 0 -Area of Debridement (cm) - Length 0.2 0.5 -Area of Debridement (cm) - Width 0.2 0.5 -Total Square (Area) (cm) 0.04 0.25 -Tunneling No No -Undermining/Tunneling No No -Circular Undermining No No -Wound/Ulcer Outcome Not Healed Not Healed Healed- Epithelialized -Ulcer Cleansing Rinsed/ Rinsed/ Irrigated with Irrigated with Saline Saline -Foul Odor after Cleansing No No -Bioengineered Tissue No No -Bleeding Controlled with Pressure Pressure -Offloading No No -Treatment Response Procedure Procedure Tolerated Well Tolerated Well -Debridement - Subq, 1st 20sq cm No Yes Pain Scale: 0-10 Numeric Is Patient Pain Free? Yes Yes Yes - Nurse 3 - General Ulcer D/C NN Start: 08/25/20 08:10 Freq: Status: Active Protocol: Activity Type Activity Date Activity User E-Sign Co-Sign Detail Recorded Client Recorded Date Recorded By Document 08/25/20 08:25 MW [id number] 08/25/20 08:26 MW Document 09/01/20 09:13 KR [id number] 09/01/20 09:13 KR 08/25/20 09/01/20 08:25 09:13 Wound Care Nurse 3 #3 right manley superior medial -Ulcer Cleansing Rinsed/ Irrigated with Saline -Foul Odor after Cleansing No -Negative Pressure Wound Therapy N/A -Primary Dressing Applied NonAdherent Contact Layer, Promogran -Primary Dressing Covered/Secured with Dry Gauze, Secured with Tape -Promogran 1 #2 RIGHT MANLEY SUPERIOR CLUSTER -Ulcer Cleansing Rinsed/ Rinsed/ Irrigated with Irrigated with Saline Saline -Foul Odor after Cleansing No -Negative Pressure Wound Therapy N/A -Primary Dressing Applied Promogran -Other Dressing promogran -Primary Dressing Covered/Secured with Dry Gauze, Dry Gauze, Secured with Secured with Tape Tape -Promogran 1 Right -Tubular Bandage Double Layer -Size of Tubigrip Used Size E Treatment Response Procedure Tolerated Well Pain Scale: 0-10 Numeric Is Patient Pain Free? Yes Teaching: Wound Center Dressing Your Wound -Person Taught Patient -Teaching Method Discussion -Response to teaching Verbalize understanding WC - Visit Discharge Discharge Condition Stable Stable Ambulatory Status Ambulatory Ambulatory Transportation Private Auto Private Auto Accompanied by self Medication Reconcilliation completed & No provided to patient/care provider Clinical Summary of Care Provided Yes No debridement was completed today Assessment/Plan Active Problems (Last Updated 09/20/17 @ 14:24 by Sue Adkins) Psoriasis (a type of skin inflammation) (Chronic) Nonhealing nonsurgical wound with fat layer exposed (Acute) Non-pressure chronic ulcer right lower leg, limited to breakdown skin (Acute) Assessment: Atrial fib. Long-term use of Coumadin. Nonhealing nonsurgical cluster wound right malney. Chronic nonhealing nonpressure wound right lower manley Plan: Discharge from the wound center follow-up as needed
== END 2020-09-08 08:20 | disposition home or self-care (01) ==
LOC: WC 08:00
PROVIDERS: PCP Family Medicine; Referring Provider Family Medicine; Visit Provider Nurse Practitioner
DX: L97.811 Non-pressure chronic ulcer of other part of right lower leg limited to breakdown of skin (principal); L40.9 Psoriasis, unspecified; I48.91 Unspecified atrial fibrillation; Z79.01 Long term (current) use of anticoagulants
CPT/HCPCS: 11042; 99212; G0463

== ENCOUNTER → 2020-11-10 12:06 | Outpatient (CLI) | payer BC, SELFPAY ==
--- NOTE | 2020-11-10 12:09 | RAD_ITS ---
STUDY: X-RAY - RIGHT ANKLE REASON FOR EXAM: Male, 64 years old. Rolled ankle yesterday, swelling and lateral pain. TECHNIQUE: 3 view(s) of the ankle. COMPARISON: None. FINDINGS: Normal visualized distal tibia and fibula. Normal medial and lateral malleoli. Normal tibiotalar articulation and ankle mortise. Normal visualized talus and calcaneus. The visualized subtalar, talonavicular, calcaneocuboid and tarsal articulations are normal. The soft tissue structures are unremarkable. RAD/Ankle min 3 Views IMPRESSION: Normal x-ray examination of the ankle. Electronically Signed: Anderson Nielson DO at 22:47 EDT Tel , Service support ,
== END ==
PROVIDERS: PCP Family Medicine; Referring Provider Family Medicine; Visit Provider Family Medicine
DX: S93.401A Sprain of unspecified ligament of right ankle, initial encounter (principal)
CPT/HCPCS: 73610

== ENCOUNTER → 2020-11-22 14:43 | Outpatient (CLI) | payer BC, SELFPAY ==
--- NOTE | 2020-11-22 14:48 | EKG12_ITS ---
Test Reason : MEDREFILL/AFIB Blood Pressure : / mmHG Vent. Rate : 057 BPM Atrial Rate : 057 BPM P-R Int : 188 ms QRS Dur : 102 ms QT Int : 430 ms P-R-T Axes : 059 018 040 degrees QTc Int : 418 ms Sinus bradycardia Otherwise normal ECG Confirmed by ANGELA CHERRY, LONNIE ([id number]), staff editor JAROD BEE ([id number]) on 11/24/2020 10:37:24 AM Referred By: MIAH MORENO Confirmed By:LONNIE MILLER MD
[2020-11-22 16:23] LABS: Anion Gap 3 (5-15); BUN 15 mg/dL (7-18); BUN/Creat Ratio 18.5 RATIO (10-20); Calcium,Total 8.7 mg/dL (8.5-10.1); Chloride 105 mmol/L (98-107); Creatinine, Serum 0.81 mg/dL (0.70-1.30); EST Glomerular Filtration Rate 102 mL/min (>60); Est Glom Filt Rate - Afr Amer 124 mL/min (>60); Glucose 95 mg/dL (74-106); Magnesium 2.2 mg/dL (1.6-2.6); Potassium 3.4 mmol/L (3.5-5.1); Sodium Level 138 mmol/L (136-145)
== END ==
PROVIDERS: PCP Family Medicine
DX: I48.91 Unspecified atrial fibrillation (principal)
CPT/HCPCS: 36415; 80048; 83735; 93005

== ENCOUNTER → 2021-02-23 08:35 | Outpatient (CLI) | payer BC, SELFPAY ==
--- NOTE | 2021-02-23 08:40 | EKG12_ITS ---
Test Reason : MEDICATION Blood Pressure : / mmHG Vent. Rate : 063 BPM Atrial Rate : 063 BPM P-R Int : 186 ms QRS Dur : 100 ms QT Int : 404 ms P-R-T Axes : 047 031 047 degrees QTc Int : 413 ms Sinus rhythm with sinus arrhythmia with occasional Premature ventricular complexes Otherwise normal ECG Confirmed by FREDERIC CHERRY, DILSHAD ([id number]), magazine editor JAROD BEE ([id number]) on 02/24/2021 9:06:57 AM Referred By: MIAH MORENO Confirmed By:DILSHAD DE LA GARZA MD
[2021-02-23 10:30] LABS: Anion Gap 3 (5-15); BUN 20 mg/dL (7-18); BUN/Creat Ratio 24.8 RATIO (10-20); Calcium,Total 8.8 mg/dL (8.5-10.1); Chloride 107 mmol/L (98-107); Creatinine, Serum 0.81 mg/dL (0.70-1.30); EST Glomerular Filtration Rate 103 mL/min (>60); Est Glom Filt Rate - Afr Amer 124 mL/min (>60); Glucose 80 mg/dL (74-106); Magnesium 2.3 mg/dL (1.6-2.6); Potassium 3.6 mmol/L (3.5-5.1); Sodium Level 138 mmol/L (136-145)
== END ==
PROVIDERS: PCP Family Medicine
DX: I48.91 Unspecified atrial fibrillation (principal)
CPT/HCPCS: 36415; 80048; 83735; 93005

== ENCOUNTER → 2021-03-24 16:31 | Outpatient (CLI) | payer BC, SELFPAY ==
[2021-03-24 17:31] LABS: Absolute Lymphocyte Count 0.72 X10^3/uL (0.83-4.51); Absolute Neutrophil Count 5.3 X10^3/uL (2.0-7.7); Basophil# 0.03 X10^3/uL; Basophil% 0.5 % (0-1); Eosinophil# 0.08 X10^3/uL; Eosinophils% 1.2 % (0-5); Hematocrit 40.6 % (40-54); Hemoglobin 13.6 g/dL (13.0-16.5); Lymphocyte # 0.72 X10^3/ul (0.83-4.51); Mean Corp Hgb Conc 33.5 g/dL (32-36); Mean Corpuscular Hgb 28.6 pg (27.0-32.0); Mean Corpuscular Volume 85.3 fL (80-94); Monocyte# 0.42 X10^3/uL; Monocyte% 6.4 % (0-10); NRBC Flagged by Analyzer 0 % (0-5); Neutrophil % 80.6 % (47-70); Platelet Count 187 K/mm3 (150-450); RBC Distribution Width CV 13.2 % (11.6-14.6); RBC Distribution Width SD 41.2 fl (35.1-43.9); Red Blood Count 4.76 M/mm3 (4.6-6.2); White Blood Count 6.6 K/mm3 (4.4-11.0)
[2021-03-24 17:52] LABS: AST(SGOT) 15 U/L (15-37); Alanine Aminotransfer ALT/SGPT 23 U/L (16-61); Albumin, Serum 3.7 g/dL (3.2-5.0); Alkaline Phosphatase 69 U/L (45-117); Anion Gap 9 (5-15); BUN 13 mg/dL (7-18); BUN/Creat Ratio 17.2 RATIO (10-20); Calcium,Total 8.8 mg/dL (8.5-10.1); Chloride 99 mmol/L (98-107); Creatinine, Serum 0.76 mg/dL (0.70-1.30); EST Glomerular Filtration Rate 110 mL/min (>60); Est Glom Filt Rate - Afr Amer 134 mL/min (>60); Globulin 3.6 g/dL (2.2-4.2); Glucose 99 mg/dL (74-106); Potassium 3.7 mmol/L (3.5-5.1); Protein, Total 7.3 g/dL (6.4-8.2); Sodium Level 134 mmol/L (136-145)
== END ==
PROVIDERS: PCP Family Medicine; Visit Provider Nurse Practitioner Family
DX: R10.9 Unspecified abdominal pain (principal)
CPT/HCPCS: 36415; 80053; 85025

== ENCOUNTER → 2021-03-24 16:51 | Outpatient (CLI) | payer BC, SELFPAY ==
--- NOTE | 2021-03-24 16:54 | CT_ITS ---
STUDY: CT ABDOMEN AND PELVIS WITHOUT CONTRAST REASON FOR EXAM: Male, 65 years old. abdomen pain RADIATION DOSAGE (If Supplied By Facility): CTDIvol = ( 16.83 ) mGy, DLP = ( 853.44 ) mGycm TECHNIQUE: Transaxial images were obtained from the dome of the diaphragm to the symphysis pubis without oral contrast, and without intravenous contrast. Sagittal and coronal images were reconstructed. Individualized dose optimization techniques were used for this CT. COMPARISON: None. FINDINGS: The visualized lung bases are unremarkable. The visualized portions of the heart are within normal limits. Normal liver. Normal gallbladder and extrahepatic biliary system. Normal spleen. Normal pancreas. Normal bilateral adrenal glands. Normal right kidney. 3 mm obstructing stone at the left ureterovesical junction with moderate ureteral dilatation, hydronephrosis, and perinephric edema. Normal visualized stomach. Normal small intestine. Normal colon. There are surgical clips in the region of the appendix consistent with a prior appendectomy. Normal abdominal aorta. Normal inferior vena cava. Normal retroperitoneum. Normal urinary bladder. Normal abdominal wall. Normal osseous structures. CT/Abdomen/Pelvis without Cont IMPRESSION: 3 mm obstructing stone at the left ureteral vesicle junction with moderate ureteral dilatation, hydronephrosis, perinephric edema. Electronically Signed: Bobo Roblero MD at 17:29 EDT Tel , Service support ,
== END ==
PROVIDERS: PCP Family Medicine; Referring Provider Nurse Practitioner Family; Visit Provider Nurse Practitioner Family
DX: R10.9 Unspecified abdominal pain (principal)
CPT/HCPCS: 74176

== ENCOUNTER 2021-03-24 18:40 | Emergency (ER) | payer BC, SELFPAY ==
[2021-03-24 18:41] VITALS: BP 128/80; PULSE 59; RESP 17; TEMP 36.6; O2SAT 98; BMI 30.6
--- NOTE | 2021-03-24 19:45 | EX.ED.GUMALE ---
HPI History of Present Illness Chief Complaint: Flank Pain Narrative Narrative: Patient presenting with left flank pain that started earlier this morning. He was seen outpatient by his PCP and had a CBC and BMP which were drawn and were unremarkable. Patient had CT of the abdomen pelvis without contrast which showed a 3 mm ureteral stone and hydronephrosis as well as hydroureter on the left. Patient was discharged home without any pain and nausea medicine. He is referred to the ER by his primary care physician because patient has vomiting most of the day. Patient denies fever or chills. He admits to history of kidney stone twice distantly and states he passed both of them he does not have a urologist. Denies dysuria or nathan hematuria. [facility] Medical History Heart disease Hypertension Irregular heart beat Kidney stones Home Medications albuterol sulfate 1 - 2 puff INHALATION Q4H PRN PRN #1 inhaler 09/11/15 [Rx Last Taken Unknown] amlodipine 10 mg PO DAILY 09/11/15 [History Last Taken Unknown] metoprolol tartrate 75 mg PO DAILY 09/11/15 [History Last Taken Unknown] warfarin 10 mg PO SUMOTUWE 09/11/15 [History Last Taken Unknown] dofetilide 500 mcg PO BID 10/27/19 [History Last Taken Unknown] hydrocodone-acetaminophen 1 tab PO Q6H PRN PRN 3 Days #12 tablet 03/24/21 [Rx Last Taken Unknown] ondansetron HCl [Zofran] 4 mg PO Q8H PRN #14 tab 03/24/21 [Rx Last Taken Unknown] potassium chloride 20 meq PO DAILY 03/24/21 [History Last Taken Unknown] warfarin 11 mg PO THFRSA 03/24/21 [History Last Taken Unknown] Allergy/AdvReac Type Severity Reaction Status Date / Time lisinopril Allergy Unknown Verified 03/24/21 18:41 losartan potassium Allergy Unknown Verified 03/24/21 18:41 [From Cozaar] acetaminophen [From Percocet] AdvReac Other Verified 03/24/21 18:41 oxycodone [From Percocet] AdvReac Other Verified 03/24/21 18:41 Social History Smoking Status: Never smoker alcohol intake: current alcohol intake frequency: holidays/special occasions only ROS ROS ED Constitutional Constitutional ED: Reports sweats; Denies chills or fever(s) Eyes Eyes: Denies blurry vision or change in vision ENT ENT ED: Denies rhinorrhea or sore throat Cardiovascular Cardiovascular: Denies chest pain or palpitations Respiratory/Chest Respiratory/Chest: Denies cough, dyspnea or sputum Gastrointestinal Gastrointestinal: Reports nausea and vomiting; Denies constipation or diarrhea Genitourinary Genitourinary ED: Denies dysuria or hematuria Musculoskeletal Musculoskeletal: Reports other Details: Left flank pain ; Denies myalgias Integumentary Denies rash Neurologic Neurologic: Denies headache(s) or paresthesias EXAM Physical Exam Const Vital Signs: 03/24/21 18:41 Temperature 97.8 F Temperature Source Temporal Pulse Rate 59 L Respiratory Rate 17 Blood Pressure 128/80 H Blood Pressure Mean 96 Pulse Ox 98 Oxygen Delivery Method Room Air Positive well nourished General Appearance ED: NAD HEENT normocephalic and atraumatic Eyes PERRL and EOMs intact bilaterally Resp normal respiratory effort and clear to auscultation bilaterally Cardio regular rate and regular rhythm no CVA tenderness Neuro oriented x3 Sensorium / Orientation: alert Psych mental status grossly normal Skin Lesions: no lesions Rashes: no rashes MDM MDM MDM Narrative Medical decision making narrative: Patient presenting with left flank pain. He was sent home without pain medication today. He does not have urology follow-up. Patient had CBC and BMP which were normal today. Patient also has a known left 3 mm ureteral stone. Patient states he has been vomiting most of the day and in pain. He currently states his pain is 5/5. Patient was given Toradol, morphine, Zofran. I will obtain a urinalysis as this was not done earlier. Patient's urinalysis is negative for infection. Patient's pain is controlled with Toradol morphine, Zofran. He is given a prescription for [place] as he has an allergy to oxycodone. He is given Zofran for home. He was given follow-up with Dr. Flynn. Patient is given return precautions. Impression: 1. Hematuria 2. 3 mm left ureteral stone Lab Data Labs: Laboratory Results - last 24 hr 03/24/21 20:01 Urine Color Yellow Urine Clarity Sl. Cloudy Urine pH 7.0 Ur Specific [place] 1.005 Urine Protein Negative Urine Glucose (UA) Normal Urine Ketones Negative Urine Occult Blood 250 H Urine Nitrite Negative Urine Bilirubin Negative Urine Urobilinogen Normal Ur Leukocyte Esterase Negative Urine RBC 10-25 SEEN Urine WBC Not Reportable Ur Squamous Epith Cells 0-5 SEEN Urine Bacteria 0 SEEN Urine Mucus 0 SEEN Discharge Plan Triage Chief Complaint: Flank Pain ED Provider: Ermias Gill Dx/Rx/DC Orders Instructions: ED Kidney Stone w/ Colic Prescriptions: New hydrocodone-acetaminophen 5-325 mg tablet 1 tab PO Q6H PRN PRN (Reason: Pain) 3 Days Qty: 12 RF: 0 ondansetron HCl [Zofran] 4 mg tablet 4 mg PO Q8H PRN (Reason: nausea and vomiting) Qty: 14 RF: 0 No Action metoprolol tartrate 100 MG tablet 75 mg PO DAILY RF: 0 warfarin 10 MG tablet 10 mg PO SUMOTUWE RF: 0 amlodipine 10 MG tablet 10 mg PO DAILY RF: 0 albuterol sulfate 1 INHALER inhaler 1 - 2 puff INHALATION Q4H PRN PRN (Reason: Wheezing) Qty: 1 RF: 0 dofetilide 500 MCG capsule 500 mcg PO BID RF: 0 warfarin 10 mg Tablet 11 mg PO THFRSA RF: 0 potassium chloride 20 mEq tablet,ER particles/crystals 20 meq PO DAILY RF: 0 Primary Care Provider: Carol Ann Roberts Referrals: Carol Ann Roberts MD [Primary Care Provider] - Humberto Flynn MD [STAFF PHYSICIAN] - As soon as possible
[2021-03-24] MEDS: 0.9% Normal Saline 1,000 ML 999 ML IV (19:49)
[2021-03-24] MEDS: Ketorolac 15 MG/ML Vial IV (19:50)
[2021-03-24] MEDS: Ondansetron 4 MG/2 ML Vial IV (19:50)
[2021-03-24 20:09] LABS: Bacteria 0 SEEN /hpf (None Seen); Mucous, Urine 0 SEEN /hpf (<or=2+)
[2021-03-24 20:13] LABS: Color, Urine Yellow (Yellow); Glucose, Dipstick Normal (Normal); Ketone-Dipstick Negative (Negative); Leukocyte Esterase-Dipstick Negative /ul (Negative); Nitrite-Dipstick Negative (Negative); Occult Blood-Urine 250 /ul (Negative); Protein-Dipstick Negative (Negative); Specific Gravity, Urine 1.005 (1.002-1.030); Urine Bilirubin Dipstick Negative (Negative); Urine Clarity Sl. Cloudy (Clear); Urine Urobilinogen Normal (Normal)
[2021-03-24 20:22] LABS: Red Blood Cells-Urine 10-25 SEEN /hpf (0-5); Squamous Epithelial Cells - UA 0-5 SEEN /hpf (0-5)
[2021-03-24] MEDS: Morphine 4 MG/ML Syringe IV (20:59)
[2021-03-24 21:08] VITALS: BP 141/96; RESP 18
== END 2021-03-24 21:22 | disposition home or self-care (01) ==
LOC: ED 19:23
PROVIDERS: Emergency Provider Student in an Organized Health Care Education/Training Program; PCP Family Medicine
DX: N13.2 Hydronephrosis with renal and ureteral calculous obstruction (principal); I10 Essential (primary) hypertension; I51.9 Heart disease, unspecified; Z79.899 Other long term (current) drug therapy; Z79.01 Long term (current) use of anticoagulants
CPT/HCPCS: 81001; 96374; 96375; 96376; 99283; J7030; A4216; J2405

== ENCOUNTER 2021-03-25 12:09 | Emergency (ER) | payer BC, SELFPAY ==
[2021-03-24 18:41] VITALS: BMI 30.6
[2021-03-25 12:10] VITALS: BP 160/81; PULSE 45; RESP 18; TEMP 35.8; O2SAT 99; BMI 30.4
[2021-03-25 13:05] LABS: Bacteria 0 SEEN /hpf (None Seen); Mucous, Urine 0 SEEN /hpf (<or=2+); Red Blood Cells-Urine 0 SEEN /hpf (0-5); Squamous Epithelial Cells - UA 0 SEEN /hpf (0-5); White Blood Cells 0 SEEN /hpf (0-5)
[2021-03-25 13:12] LABS: Color, Urine Yellow (Yellow); Glucose, Dipstick Normal (Normal); Ketone-Dipstick Negative (Negative); Leukocyte Esterase-Dipstick Negative /ul (Negative); Nitrite-Dipstick Negative (Negative); Occult Blood-Urine 25 /ul (Negative); Protein-Dipstick Negative (Negative); Specific Gravity, Urine 1.015 (1.002-1.030); Urine Bilirubin Dipstick Negative (Negative); Urine Clarity Clear (Clear); Urine Urobilinogen Normal (Normal)
[2021-03-25] MEDS: Ketorolac 15 MG/ML Vial IV (13:15)
[2021-03-25] MEDS: 0.9% Normal Saline 1,000 ML 1000 ML IV (13:15)
[2021-03-25] MEDS: Ondansetron 4 MG/2 ML Vial IV ×2 (13:15→15:07)
[2021-03-25] MEDS: Morphine 4 MG/ML Syringe IV (13:16)
[2021-03-25 13:19] VITALS: BP 162/79; PULSE 57; RESP 14; O2SAT 100
[2021-03-25 13:22] LABS: Absolute Lymphocyte Count 0.65 X10^3/uL (0.83-4.51); Absolute Neutrophil Count 7.8 X10^3/uL (2.0-7.7); Basophil# 0.02 X10^3/uL; Basophil% 0.2 % (0-1); Eosinophil# 0.06 X10^3/uL; Eosinophils% 0.7 % (0-5); Hematocrit 41.4 % (40-54); Hemoglobin 13.9 g/dL (13.0-16.5); Lymphocyte # 0.65 X10^3/ul (0.83-4.51); Lymphocyte % 7.2 % (19-41); Mean Corp Hgb Conc 33.6 g/dL (32-36); Mean Corpuscular Hgb 28.4 pg (27.0-32.0); Mean Corpuscular Volume 84.7 fL (80-94); Mean Platelet Vol. 9.5 fl (6.2-12.0); Monocyte% 4.4 % (0-10); NRBC Flagged by Analyzer 0 % (0-5); Neutrophil # 7.82 X10^3/uL (2.7-7.7); Neutrophil % 87.1 % (47-70); Platelet Count 176 K/mm3 (150-450); RBC Distribution Width CV 13.3 % (11.6-14.6); RBC Distribution Width SD 41.6 fl (35.1-43.9); Red Blood Count 4.89 M/mm3 (4.6-6.2)
[2021-03-25 13:40] LABS: AST(SGOT) 15 U/L (15-37); Alanine Aminotransfer ALT/SGPT 22 U/L (16-61); Albumin, Serum 3.8 g/dL (3.2-5.0); Alkaline Phosphatase 72 U/L (45-117); Anion Gap 4 (5-15); BUN 12 mg/dL (7-18); BUN/Creat Ratio 13.9 RATIO (10-20); Calcium,Total 8.7 mg/dL (8.5-10.1); Chloride 99 mmol/L (98-107); Creatinine, Serum 0.86 mg/dL (0.70-1.30); EST Glomerular Filtration Rate 95 mL/min (>60); Est Glom Filt Rate - Afr Amer 115 mL/min (>60); Estimated Creatinine Clearance 102.22 ml/min; Glucose 119 mg/dL (74-106); Potassium 3.6 mmol/L (3.5-5.1); Protein, Total 7.8 g/dL (6.4-8.2); Sodium Level 132 mmol/L (136-145)
[2021-03-25 14:45] VITALS: BP 160/95; O2SAT 98
[2021-03-25] MEDS: HYDROmorphone 1 MG/ML Syringe 0.5 MG IV (15:07)
--- NOTE | 2021-03-25 15:41 | EDS_ITS ---
HPI History of Present Illness Chief Complaint: Flank Pain Informant: patient Onset/Context/Timing Onset: Days Context: Gradual Onset Timing: Continuous Location: Left flank Worsened by: Nothing Relieved by: Nothing Narrative Narrative: Patient presents with left flank pain that became worse today. Patient was seen here recently and diagnosed with a 3 mm left ureteral calculus. Patient was given prescription for [place] at home. Patient states this has not been helping. Patient denies any dysuria or hematuria. Patient denies any fevers or chills. Patient does admit to some nausea and vomiting. Patient states he also has a prescription for Zofran at home which has not been helping. [facility] Medical History Heart disease Hypertension Irregular heart beat Kidney stones Home Medications albuterol sulfate 1 - 2 puff INHALATION Q4H PRN PRN #1 inhaler 09/11/15 [Rx Last Taken Unknown] amlodipine 10 mg PO DAILY 09/11/15 [History Last Taken Unknown] metoprolol tartrate 75 mg PO DAILY 09/11/15 [History Last Taken Unknown] warfarin 10 mg PO SUMOTUWE 09/11/15 [History Last Taken Unknown] dofetilide 500 mcg PO BID 10/27/19 [History Last Taken Unknown] hydrocodone-acetaminophen 1 tab PO Q6H PRN PRN 3 Days #12 tablet 03/24/21 [Rx Last Taken Unknown] ondansetron HCl [Zofran] 4 mg PO Q8H PRN #14 tab 03/24/21 [Rx Last Taken Unknown] potassium chloride 20 meq PO DAILY 03/24/21 [History Last Taken Unknown] warfarin 11 mg PO THFRSA 03/24/21 [History Last Taken Unknown] Allergy/AdvReac Type Severity Reaction Status Date / Time lisinopril Allergy Unknown Verified 03/25/21 12:10 losartan potassium Allergy Unknown Verified 03/25/21 12:10 [From Cozaar] acetaminophen [From Percocet] AdvReac Other Verified 03/25/21 12:10 oxycodone [From Percocet] AdvReac Other Verified 03/25/21 12:10 Surgical History (Updated 03/25/21 @ 17:[address] Freeman Simpson DO) History of cardiac radiofrequency ablation Hx of appendectomy Social History Smoking Status: Never smoker alcohol intake: current alcohol intake frequency: holidays/special occasions only ROS ROS ED Constitutional Constitutional ED: Reports chills and subjective; Denies fever(s) Eyes Eyes: Denies blurry vision or change in vision ENT ENT ED: Denies rhinorrhea or sore throat Cardiovascular Cardiovascular: Denies chest pain or palpitations Respiratory/Chest Respiratory/Chest: Denies cough or dyspnea Gastrointestinal Gastrointestinal: Reports abdominal pain, nausea and vomiting Genitourinary Genitourinary ED: Denies dysuria or hematuria Musculoskeletal Musculoskeletal: Reports back pain; Denies neck pain Integumentary Denies abscess or rash Neurologic Neurologic: Denies headache(s) or weakness Allergic/Immunologic Allergic/Immunologic ED: Denies mouth swelling or urticaria EXAM Physical Exam Const Vital Signs: 03/25/21 12:10 03/25/21 13:19 03/25/21 14:45 Temperature 96.4 F L Temperature Source Temporal Pulse Rate 45 L 57 L Respiratory Rate 18 14 Blood Pressure 160/81 H 162/79 H 160/95 H Blood Pressure Mean 107 106 116 Pulse Ox 99 100 98 Oxygen Delivery Method Room Air Room Air Room Air 03/25/21 15:58 Temperature Temperature Source Pulse Rate 58 L Respiratory Rate 14 Blood Pressure 137/80 H Blood Pressure Mean Pulse Ox 93 Oxygen Delivery Method Positive well nourished and well developed General Appearance ED: well developed HEENT Reports moist mucous membranes Neck supple and no JVD Resp normal respiratory effort and clear to auscultation bilaterally Cardio regular rate, regular rhythm and no murmurs GI normal to inspection, nondistended, normoactive bowel sounds and non-tender Palpation: soft Back/Spine General Back: CVA tenderness left Extremity normal to inspection General Extremety ED: Negative for edema or tenderness General Extremity: Negative for edema Neuro oriented x3, CN's II-XII intact bilaterally and no sensory deficits noted Sensorium / Orientation: alert Motor Exam: strength 5/5 throughout Psych mental status grossly normal Skin no rashes or lesions noted MDM MDM MDM Narrative Medical decision making narrative: Patient was given IV fluids morphine, and Zofran. CBC and comprehensive metabolic profile were obtained and were within normal limits. Urinalysis does not show any evidence of urinary tract infection. Patient was still having pain. Patient was given a dose of Dilaudid. Patient was feeling better after this. Patient was instructed to drink plenty of fluids at home. Patient was instructed to continue his [place] as needed for pain. Patient was instructed to follow-up with his primary care phys ician and urologist in 3 to 5 days. Patient understood and was agreeable with the plan. All questions were answered. Lab Data Attestation: I reviewed the patient's lab results. Labs: Laboratory Results - last 24 hr 03/25/21 03/25/21 03/25/21 12:45 13:10 13:10 WBC 9.0 RBC 4.89 Hgb 13.9 Hct 41.4 MCV 84.7 MCH 28.4 MCHC 33.6 RDW Std Deviation 41.6 RDW Coeff of Lynette 13.3 Plt Count 176 MPV 9.5 Immature Gran % (Auto) 0.400 Neut % (Auto) 87.1 H Lymph % (Auto) 7.2 L Brewster % (Auto) 4.4 Eos % (Auto) 0.7 Baso % (Auto) 0.2 Absolute Neuts (auto) 7.8 H Absolute Lymphs (auto) 0.65 L Nucleated RBC % 0 Sodium 132 L Potassium 3.6 Chloride 99 Carbon Dioxide 29.0 Anion Gap 4 L BUN 12 Creatinine 0.86 Estim Creat Clear Calc 102.22 Est GFR (MDRD) Af Amer 115 Est GFR (MDRD) Non-Af 95 BUN/Creatinine Ratio 13.9 Glucose 119 H Calcium 8.7 Total Bilirubin 1.10 H AST 15 ALT 22 Alkaline Phosphatase 72 Total Protein 7.8 Albumin 3.8 Globulin 4.0 Albumin/Globulin Ratio 1.0 Urine Color Yellow Urine Clarity Clear Urine pH 8.0 Ur Specific [place] 1.015 Urine Protein Negative Urine Glucose (UA) Normal Urine Ketones Negative Urine Occult Blood 25 H Urine Nitrite Negative Urine Bilirubin Negative Urine Urobilinogen Normal Ur Leukocyte Esterase Negative Urine RBC 0 SEEN Urine WBC 0 SEEN Ur Squamous Epith Cells 0 SEEN Urine Bacteria 0 SEEN Urine Mucus 0 SEEN Discharge Plan Triage Chief Complaint: Flank Pain ED Provider: Freeman Simpson Dx/Rx/DC Orders Clinical Impression: Left ureteral calculus Instructions: ED Kidney Stone w/ Colic Prescriptions: No Action metoprolol tartrate 100 MG tablet 75 mg PO DAILY RF: 0 warfarin 10 MG tablet 10 mg PO SUMOTUWE RF: 0 amlodipine 10 MG tablet 10 mg PO DAILY RF: 0 albuterol sulfate 1 INHALER inhaler 1 - 2 puff INHALATION Q4H PRN PRN (Reason: Wheezing) Qty: 1 RF: 0 dofetilide 500 MCG capsule 500 mcg PO BID RF: 0 warfarin 10 mg Tablet 11 mg PO THFRSA RF: 0 potassium chloride 20 mEq tablet,ER particles/crystals 20 meq PO DAILY RF: 0 hydrocodone-acetaminophen 5-325 mg tablet 1 tab PO Q6H PRN PRN (Reason: Pain) 3 Days Qty: 12 RF: 0 ondansetron HCl [Zofran] 4 mg tablet 4 mg PO Q8H PRN (Reason: nausea and vomiting) Qty: 14 RF: 0 Primary Care Provider: Carol Ann Roberts Referrals: Carol Ann Roberts MD [Primary Care Provider] - 5-7 Days Humberto Flynn MD [STAFF PHYSICIAN] - 3-5 Days Disposition Disposition: Home, Self Care Discharge Date/Time: 03/25/21 15:59
[2021-03-25 15:58] VITALS: BP 137/80; PULSE 58; RESP 14; O2SAT 93
== END 2021-03-25 15:59 | disposition home or self-care (01) ==
PROVIDERS: Emergency Provider Emergency Medicine; PCP Family Medicine
DX: N20.2 Calculus of kidney with calculus of ureter (principal); I10 Essential (primary) hypertension; I51.9 Heart disease, unspecified; Z79.899 Other long term (current) drug therapy; Z79.01 Long term (current) use of anticoagulants
CPT/HCPCS: 80053; 81001; 85025; 96361; 96374; 96375; 96376; 99285; J7030; A4216; J2405

== ENCOUNTER 2021-03-28 15:48 | Observation (INO) | payer BC, SELFPAY ==
[2021-03-28 15:04] VITALS: BMI 29.9
[2021-03-28 15:09] VITALS: BP 131/74; PULSE 59; RESP 18; TEMP 36.5; O2SAT 100
--- NOTE | 2021-03-28 15:48 | EKG12_ITS ---
Test Reason : PRE OP Blood Pressure : / mmHG Vent. Rate : 056 BPM Atrial Rate : 056 BPM P-R Int : 194 ms QRS Dur : 096 ms QT Int : 436 ms P-R-T Axes : 058 022 037 degrees QTc Int : 420 ms Sinus bradycardia Otherwise normal ECG Confirmed by FREDERIC CHERRY, DILSHAD ([id number]), web editor JAROD BEE ([id number]) on 03/30/2021 11:01:18 AM Referred By: SANTIAGO Confirmed By:DILSHAD DE LA GARZA MD
--- NOTE | 2021-03-28 15:53 | HP.PCM_ITS ---
History and Physical I have ureteral stone. HPI: MILES NGUYEN is a 65 year-old male patient who was referred by [facility] M.D. who is here for ureteral stone. 65 yr old male new pt presents for symptomatic obstructing left distal ureteral stone. No BM since this started. Can't eat. Has had chills as recently as this morning. Severe left flank pain today. Hx of passing a stone twice approx 30 yrs ago The problem is on the left side. He first noticed the symptoms 5 days ago. This is not his first kidney stone. He is currently having flank pain, groin pain, nausea, vomiting, and chills. He denies having back pain, fever, and urgency. Pain is occuring on the left side. He has not caught a stone in his urine strainer since his symptoms began. He has never had surgical treatment for calculi in the past. ALLERGIES: Hydrochlorothiazide Lisinopril Losartan Percocet MEDICATIONS: Albuterol Sulfate Amlodipine Besylate 10 mg tablet 1 tablet PO Daily Dofetilide 500 mcg capsule 1 capsule PO BID Metoprolol Tartrate 75 mg tablet 1 tablet PO Daily Potassium Chloride 20 meq tablet, extended release 1 tablet PO Daily Warfarin Sodium 10 mg tablet 1 tablet PO Daily Notes: No COVID vaccine PSH: None NON- PSH: Appendectomy Brain Surgery (Unspecified) Heart Surgery (Unspecified) PMH: None NON- PMH: Essential (primary) hypertension Personal history of diseases of the ms sys and conn tiss Sleep apnea, unspecified FAMILY HISTORY: Emphysema - Father Heart Disease - Mother Kidney Stones - Mother Uterine Cancer - Mother SOCIAL HISTORY: Marital Status: Preferred Language: [place]; Ethnicity: Not Or ; Race: White Current Smoking Status: Patient has never smoked. Tobacco Use Assessment Completed: Used Tobacco in last 30 days? Social Drinker. Does not use drugs. Drinks 2 caffeinated drinks per day. Has not had a blood transfusion. Notes: Normal colonoscopy- 5 years ago REVIEW OF SYSTEMS: Constitutional: Patient reports chills. Patient denies fever, weight loss, and weight gain. Eyes: Patient denies blurry vision, cataracts, and glaucoma. Ears, Nose, Mouth, Throat: Patient reports sleep apnea. Patient denies hearing loss and sinus infections. Cardiovascular: Patient reports irregular heartbeat. Patient denies chest pains, swollen ankles, and pacemaker/defib. Respiratory: Patient reports cpap machine. Patient denies oxygen, shortness of breath, and wheezing. Gastrointestinal: Patient reports abdominal pain, constipation, nausea, and vomiting. Patient denies diarrhea. Genitourinary: Patient reports frequent urination and history of stones. Patient denies urinary retention, get up at night to void, leakage of urine, painful urination, blood in the urine, frequent uti's, difficulty starting stream, weak stream/scanty, and bedwetting. Musculoskeletal: Patient reports sore muscles and back pain. Patient denies gout. Integumentary/Skin: psoriasis. Patient denies rash, skin cancer, and chronic itching. Neurological: Patient denies falling/unsteady, paralysis, and stroke/tia. Hematologic/Lymphatic: Patient denies abnormal bleeding, blood transfusion, swollen lymph nodes, deep venous thrombosis, and pulmonary embolism. VITAL SIGNS: 03/28/2021 02:24 PM Weight 235 lb / 106.59 kg Height 74 in / 187.96 cm BP 124/74 mmHg BMI 30.2 kg/m? MULTI-SYSTEM PHYSICAL EXAMINATION: Constitutional: Well-nourished. No physical deformities. Normally developed. Good grooming. appears to be in pain, is clammy and pale Neurologic / Psychiatric: Oriented to time, oriented to place, oriented to person. No depression, no anxiety, no agitation. Complexity of Data: Records Review: Previous Doctor Records, Previous Hospital Records Urine Test Review: Urinalysis X-Ray Review: C.T. Abdomen/Pelvis: Reviewed Films. Reviewed Report. Discussed With Patient. PROCEDURES: Urinalysis - [address]1390 Dipstick Dipstick Cont'd Specimen: Voided Blood: about 250 Appearance: Clear pH: 5.0 Color: Yellow Protein: Neg Glucose: Normal Urobilinogen: Neg Bilirubin: Neg Nitrites: Neg Ketones: Neg Leukocyte Esterase: Neg ASSESSMENT: ICD-10 Details 1 : Calculus of ureter - N20.1 2 Other hydronephrosis - N13.39 PLAN: Document Letter(s): Created for Patient: Clinical Summary Notes: 65 yr old male with obstructing left distal ureteral stone with hydronephrosis, likely UTI, severe pain, vomiting, chills. He will be admitted to [facility] today; tomorrow Dr Flynn will do cysto, left stent, and treat any infection, then treat stone later.
[2021-03-28] MEDS: 0.9% Normal Saline 1,000 ML 125 ML IV ×2 (16:07→23:52)
[2021-03-28] MEDS: 0.9% Saline Lock 10 ML Syringe IV (16:08)
[2021-03-28] MEDS: Calcium Carbonate 500 MG Tablet 1000 MG PO (19:21)
--- NOTE | 2021-03-28 20:01 | NURSING ---
Pandemic documentation Date: 03/28/21 Time:1899
[2021-03-28] MEDS: Famotidine 20 MG Tablet PO (20:45)
[2021-03-28] MEDS: Dofetilide 250 MCG Capsule 500 MCG PO (20:48)
[2021-03-28 20:52] VITALS: BP 125/79; PULSE 62; RESP 16; TEMP 37.2; O2SAT 97
[2021-03-29] VITALS (10 sets, daily range): BP systolic 116–158; BP diastolic 69–94; PULSE 55–99; RESP 16–18; TEMP 36.6–36.9; O2SAT 96–99; BMI 29.9
[2021-03-29 06:09] LABS: Absolute Lymphocyte Count 1.01 X10^3/uL (0.83-4.51); Absolute Neutrophil Count 4.6 X10^3/uL (2.0-7.7); Basophil# 0.03 X10^3/uL; Basophil% 0.5 % (0-1); Eosinophil# 0.08 X10^3/uL; Eosinophils% 1.2 % (0-5); Hematocrit 38.3 % (40-54); Hemoglobin 12.9 g/dL (13.0-16.5); Lymphocyte # 1.01 X10^3/ul (0.83-4.51); Lymphocyte % 15.3 % (19-41); Mean Corp Hgb Conc 33.7 g/dL (32-36); Mean Corpuscular Volume 86.1 fL (80-94); Mean Platelet Vol. 9.9 fl (6.2-12.0); Monocyte# 0.85 X10^3/uL; Monocyte% 12.9 % (0-10); NRBC Flagged by Analyzer 0 % (0-5); Neutrophil # 4.61 X10^3/uL (2.7-7.7); Neutrophil % 69.8 % (47-70); Platelet Count 181 K/mm3 (150-450); RBC Distribution Width CV 13.2 % (11.6-14.6); Red Blood Count 4.45 M/mm3 (4.6-6.2); White Blood Count 6.6 K/mm3 (4.4-11.0)
[2021-03-29 06:36] LABS: International Normalized Ratio 2.5; Prothrombin Time (Protime)PT. 25.8 SECONDS (11.7-14.9)
[2021-03-29 06:44] LABS: Anion Gap 6 (5-15); BUN 15 mg/dL (7-18); BUN/Creat Ratio 14.4 RATIO (10-20); Calcium,Total 8.6 mg/dL (8.5-10.1); Chloride 101 mmol/L (98-107); Creatinine, Serum 1.04 mg/dL (0.70-1.30); EST Glomerular Filtration Rate 77 mL/min (>60); Est Glom Filt Rate - Afr Amer 93 mL/min (>60); Estimated Creatinine Clearance 84.53 ml/min; Glucose 91 mg/dL (74-106); Potassium 3.4 mmol/L (3.5-5.1); Sodium Level 136 mmol/L (136-145)
[2021-03-29] MEDS: 0.9% Normal Saline 1,000 ML 125 ML IV (07:39)
[2021-03-29] MEDS: Morphine 2 MG/ML Syringe IV ×2 (08:40→11:15)
[2021-03-29] MEDS: Potassium Chloride Oral Tablet 20 MEQ PO (08:45)
[2021-03-29] MEDS: Metoprolol Tartrate 25 MG Tablet 75 MG PO (08:46)
[2021-03-29] MEDS: Dofetilide 250 MCG Capsule 500 MCG PO (08:47)
[2021-03-29] MEDS: amLODIPine 10 MG Tablet PO (08:47)
[2021-03-29] MEDS: Famotidine 20 MG Tablet PO (08:48)
--- NOTE | 2021-03-29 11:55 | CHAPLAIN ---
Type of Pastoral Visit _x__ Initial Visit ___ Follow-up Visit ___ On-call Visit ___ General Patient Visit ___ Spiritual Assessment ___ Family Conference ___ Bereavement ___ Rapid Response ___ Code Blue ___ Other (describe below) Pastoral Care Referral From _x__ Patient ___ Family ___ Nurse ___ Physician ___ Ornamental Ironworker ___ Foundry Molder ___ Other (describe below) Sacrament/Intervention _x__ Active listening ___ Anointing ___ Cheondoism ___ Bereavement ___ Communion ___ Lisa exploration ___ ___ Life review _x__ Prayer ___ Reconciliation ___ Sacrament of Sick _x__ Supportive presence ___ Wedding ___ Other (describe below) Pastoral Comments
--- NOTE | 2021-03-29 12:50 | PCM.PN.BLA ---
Progress Note Plan to proceed with cystoscopy left stent placement for obstructing stone suspect infection.
--- NOTE | 2021-03-29 12:51 | PCM.DC ---
Discharge Instructions Diet Discharge Diet: No restrictions Activity Discharge Activity: Return to Normal Activity and May Not Drive (while taking narcotic pain medications.) Dressing / Incision Call your doctor if you observe: Fever of 101 or Higher Follow Up Care Please Follow Up With: Humberto Flynn MD When: Call [phone] for an appointment Test Results: Test results from this visit will be discussed in further detail at your follow-up appointment, if applicable. Discharge Plan Admission Admit Date/Time: 03/28/21 15:48 Primary Reason for Your Visit: ureteral stone Attending Provider: Humberto Fylnn Primary Care Provider: Carol Ann Roberts Discharge Orders/Prescriptions Prescriptions: New ciprofloxacin HCl [Cipro] 500 mg tablet 500 mg PO BID Qty: 10 RF: 0 ibuprofen 600 mg tablet 600 mg PO Q6H PRN (Reason: pain) Qty: 14 RF: 0 Continued metoprolol tartrate 100 MG tablet 75 mg PO DAILY RF: 0 warfarin 10 MG tablet 10 mg PO SUMOTUWE RF: 0 amlodipine 10 MG tablet 10 mg PO DAILY RF: 0 albuterol sulfate 1 INHALER inhaler 1 - 2 puff INHALATION Q4H PRN PRN (Reason: Wheezing) Qty: 1 RF: 0 dofetilide 500 MCG capsule 500 mcg PO BID RF: 0 warfarin 10 mg Tablet 11 mg PO THFRSA RF: 0 potassium chloride 20 mEq tablet,ER particles/crystals 20 meq PO DAILY RF: 0 hydrocodone-acetaminophen 5-325 mg tablet 1 tab PO Q6H PRN PRN (Reason: Pain) 3 Days Qty: 12 RF: 0 ondansetron HCl [Zofran] 4 mg tablet 4 mg PO Q8H PRN (Reason: nausea and vomiting) Qty: 14 RF: 0 Referrals / Follow Up: Carol Ann Roberts MD [Primary Care Provider] - Humberto Flynn MD [STAFF PHYSICIAN] - Disposition Discharge Orders: Discharge Patient (Routine); Ordered 03/29/21 Ordered By: Dr. Humberto Flynn
--- NOTE | 2021-03-29 13:08 | PCM.DC ---
Discharge Instructions Diet Discharge Diet: No restrictions Activity Discharge Activity: Return to Normal Activity and May Not Drive (while taking narcotic pain medications.) Dressing / Incision Call your doctor if you observe: Fever of 101 or Higher Follow Up Care Please Follow Up With: Humberto Flynn MD When: Call [phone] for an appointment Test Results: Test results from this visit will be discussed in further detail at your follow-up appointment, if applicable. Discharge Plan Admission Admit Date/Time: 03/28/21 15:48 Primary Reason for Your Visit: ureteral stone Attending Provider: Humberto Flynn Primary Care Provider: Carol Ann Roberts Discharge Orders/Prescriptions Prescriptions: New ibuprofen 600 mg tablet 600 mg PO Q6H PRN (Reason: pain) Qty: 14 RF: 0 cephalexin 500 mg capsule 500 mg PO BID Qty: 10 RF: 0 Continued metoprolol tartrate 100 MG tablet 75 mg PO DAILY RF: 0 warfarin 10 MG tablet 10 mg PO SUMOTUWE RF: 0 amlodipine 10 MG tablet 10 mg PO DAILY RF: 0 albuterol sulfate 1 INHALER inhaler 1 - 2 puff INHALATION Q4H PRN PRN (Reason: Wheezing) Qty: 1 RF: 0 dofetilide 500 MCG capsule 500 mcg PO BID RF: 0 warfarin 10 mg Tablet 11 mg PO THFRSA RF: 0 potassium chloride 20 mEq tablet,ER particles/crystals 20 meq PO DAILY RF: 0 hydrocodone-acetaminophen 5-325 mg tablet 1 tab PO Q6H PRN PRN (Reason: Pain) 3 Days Qty: 12 RF: 0 ondansetron HCl [Zofran] 4 mg tablet 4 mg PO Q8H PRN (Reason: nausea and vomiting) Qty: 14 RF: 0 Referrals / Follow Up: Carol Ann Roberts MD [Primary Care Provider] - Humberto Flynn MD [STAFF PHYSICIAN] - Disposition Discharge Orders: Discharge Patient (Routine); Ordered 03/29/21 Ordered By: Dr. Humberto Flynn
--- NOTE | 2021-03-29 13:09 | PCM.OPRPT ---
Report of Operation Date of Procedure: 03/29/21 Pre-Operative Diagnosis: obstructing left ureteral stones Post-Operative Diagnosis: same Surgery/Procedure Performed:: cystoscopy and left stent placement Description of Surgical Findings:: Patient was taken back to the operating room after induction of general anesthesia, the patient was placed in dorsolithotomy position. The urethra and genitals were prepped and draped in usual sterile fashion. Using a 21 [place] rigid cystourethroscope the entire length of the urethra was normal then went into the bladder. Identified the trigone the left and right ureteral orifice. I then cannulated the LEFT orifice and advanced a wire up into the kidney. I then backloaded a 5 [place] open ended catheter over the wire and injected contrast to delineate the anatomy. After the retrograde was performed I then used fluoroscopic images and guidance to advanced a wire up into the kidney and over the 0.038 glidewire I advanced a 6 [place] by 26 cm double pigtail stent. I then pulled the 0.038 Glidewire off and the stent coiled in the kidney bladder good position. The bladder was then drained. We confirmed the position of the stent by fluoroscopy. Patient anesthetic was reversed and was taken back to the PACU in good condition. Surgeon: pavan Type of Anesthesia: General Drains: stent left side Admit VTE Documentation VTE Present on Admission: No VTE Mechan Device Prophylaxis: SCD's
== END 2021-03-29 16:51 | disposition home or self-care (01) ==
PROVIDERS: Anesthesiology; Admitting Provider Urology; PCP Family Medicine; Visit Provider Urology
PROC: (CPT 52332; principal; 2021-03-29 16:20)
DX: N13.2 Hydronephrosis with renal and ureteral calculous obstruction (principal); I51.9 Heart disease, unspecified; I10 Essential (primary) hypertension; G47.30 Sleep apnea, unspecified; L40.50 Arthropathic psoriasis, unspecified; Z79.899 Other long term (current) drug therapy; Z86.718 Personal history of other venous thrombosis and embolism; Z79.01 Long term (current) use of anticoagulants
CPT/HCPCS: 00910; 52332; 36415; 80048; 85025; 85610; 87426; 93005; 96361; 96374; 96376; 99218; J7030; A4216; C1769; C2617; G0378; J2405

== ENCOUNTER → 2021-04-08 11:18 | Outpatient (CLI) | payer BC, SELFPAY | PROVIDERS: PCP Family Medicine; Referring Provider Urology; Visit Provider Urology | DX: Z03.818 Encounter for observation for suspected exposure to other biological agents ruled out (principal) | CPT/HCPCS: 87635; C9803; U0005; U0003 ==

== ENCOUNTER → 2021-04-15 15:16 | Outpatient (CLI) | payer BC, SELFPAY ==
--- NOTE | 2021-04-15 13:55 | CALC_PTH ---
PATIENT: MILES NGUYEN LOC: [facility] U#:[id number] AGE/SX: 69/M ROOM: RE04/15/[address]: Dr. Humberto Flynn MD : [id number] BED: DIS: SPEC #: [id number] RECD: 04/15/21 14:49 STATUS: [facility] RIZZO #: [id number] ANTONIETTA: 04/15/21 13:[address]: Humberto Flynn DEPT: SURGICAL PATHOLOGY RECD BY: Bryce Sterling ENTERED: 04/19/21 08:53 SP TYPE: Calculi OTHR DR: Dr. Carol Ann Roberts MD [facility] Tissues: CALCULI Procedures: Surgery Specimen Level I HEADER OPERATION: Left ureteroscopy, basket stone PRE-OP DIAGNOSIS: Calculus of ureter, other hydronephrosis TISSUE SUBMITTED: Renal calculi GROSS DIAGNOSIS Renal calculi, removal : Unremarkable calculus (gross diagnosis only) AM;am 04/20/21 COMMENT If chemical analysis is requested on this specimen, please notify the laboratory. GROSS DESCRIPTION Received without fixative labeled with the patient's name and designated ureteral calculi. The specimen consists of a fragment of black stone measuring 0.2cm in diameter The entire specimen is saved if stone analysis is requested. TC:5 CPT: 46491
== END ==
PROVIDERS: PCP Family Medicine; Visit Provider Urology
DX: N13.2 Hydronephrosis with renal and ureteral calculous obstruction (principal)
CPT/HCPCS: 88300

== ENCOUNTER → 2021-06-06 07:11 | Outpatient (CLI) | payer BC, SELFPAY ==
[2021-06-06 09:10] LABS: Anion Gap 8 (5-15); BUN 17 mg/dL (7-18); BUN/Creat Ratio 21.1 RATIO (10-20); Calcium,Total 8.8 mg/dL (8.5-10.1); Chloride 102 mmol/L (98-107); Creatinine, Serum 0.81 mg/dL (0.70-1.30); EST Glomerular Filtration Rate 103 mL/min (>60); Est Glom Filt Rate - Afr Amer 124 mL/min (>60); Glucose 100 mg/dL (74-106); Magnesium 2.3 mg/dL (1.6-2.6); Potassium 3.6 mmol/L (3.5-5.1); Sodium Level 139 mmol/L (136-145)
== END ==
PROVIDERS: PCP Family Medicine
DX: I48.91 Unspecified atrial fibrillation (principal)
CPT/HCPCS: 36415; 80048; 83735

== ENCOUNTER → 2021-06-06 09:39 | Outpatient (CLI) | payer BC, SELFPAY ==
--- NOTE | 2021-06-06 09:48 | EKG12_ITS ---
Test Reason : MEDICATION Blood Pressure : / mmHG Vent. Rate : 047 BPM Atrial Rate : 047 BPM P-R Int : 200 ms QRS Dur : 100 ms QT Int : 466 ms P-R-T Axes : 066 038 040 degrees QTc Int : 412 ms Sinus bradycardia Otherwise normal ECG Confirmed by ANGELA CHERRY, LONNIE ([id number]), photo editor JAROD BEE ([id number]) on 06/07/2021 11:06:34 AM Referred By: OLY MORENO Confirmed By:LONNIE MILLER MD
== END ==
PROVIDERS: PCP Family Medicine
DX: I48.91 Unspecified atrial fibrillation (principal)
CPT/HCPCS: 93005

== ENCOUNTER → 2021-11-28 07:30 | Outpatient (CLI) | payer BC, SELFPAY ==
--- NOTE | 2021-11-28 07:35 | EKG12_ITS ---
Test Reason : AFIB Blood Pressure : / mmHG Vent. Rate : 049 BPM Atrial Rate : 049 BPM P-R Int : 210 ms QRS Dur : 098 ms QT Int : 470 ms P-R-T Axes : 021 028 046 degrees QTc Int : 424 ms Sinus bradycardia with 1st degree A-V block Otherwise normal ECG Confirmed by FREDERIC CHERRY, DILSHAD ([id number]), makeup editor JAROD BEE ([id number]) on 11/29/2021 8:45:52 AM Referred By: Andi Short Confirmed By:DILSHAD DE LA GARZA MD
[2021-11-28 08:32] LABS: Anion Gap 4 (5-15); BUN 16 mg/dL (7-18); Chloride 104 mmol/L (98-107); Creatinine, Serum 0.76 mg/dL (0.70-1.30); EST Glomerular Filtration Rate 109 mL/min (>60); Est Glom Filt Rate - Afr Amer 132 mL/min (>60); Glucose 92 mg/dL (74-106); Magnesium 2.1 mg/dL (1.6-2.6); Potassium 3.6 mmol/L (3.5-5.1); Sodium Level 139 mmol/L (136-145)
== END ==
PROVIDERS: PCP Family Medicine
DX: I48.0 Paroxysmal atrial fibrillation (principal); Z51.81 Encounter for therapeutic drug level monitoring
CPT/HCPCS: 36415; 80048; 83735; 93005

== ENCOUNTER → 2022-02-27 | Outpatient (CLI) | payer BC, SELFPAY ==
--- NOTE | 2022-02-27 08:36 | EKG12_ITS ---
Test Reason : A-FIB. TIKOSYN Blood Pressure : / mmHG Vent. Rate : 046 BPM Atrial Rate : 046 BPM P-R Int : 202 ms QRS Dur : 092 ms QT Int : 456 ms P-R-T Axes : 094 021 041 degrees QTc Int : 399 ms Sinus bradycardia Otherwise normal ECG Confirmed by ANGELA CHERRY, LONNIE ([id number]), news video editor COLLEEN HERNANDEZ ([id number]) on 02/27/2022 10:55:49 AM Referred By: OLY MORENO Confirmed By:LONNIE MILLER MD
[2022-02-27 10:12] LABS: Anion Gap 7 (5-15); BUN 14 mg/dL (7-18); Calcium,Total 8.9 mg/dL (8.5-10.1); Chloride 103 mmol/L (98-107); EST Glomerular Filtration Rate 121 mL/min (>60); Est Glom Filt Rate - Afr Amer 146 mL/min (>60); Glucose 92 mg/dL (74-106); Magnesium 2.6 mg/dL (1.6-2.6); Potassium 3.7 mmol/L (3.5-5.1); Sodium Level 139 mmol/L (136-145)
== END | disposition home or self-care (01) ==
LOC: PSN 08:32
PROVIDERS: PCP Family Medicine
DX: I48.0 Paroxysmal atrial fibrillation (principal); Z51.81 Encounter for therapeutic drug level monitoring
CPT/HCPCS: 36415; 80048; 83735; 93005

== ENCOUNTER → 2022-05-30 | Outpatient (CLI) | payer BC, SELFPAY ==
--- NOTE | 2022-05-30 08:12 | EKG12_ITS ---
Test Reason : AFIB Blood Pressure : / mmHG Vent. Rate : 049 BPM Atrial Rate : 049 BPM P-R Int : 194 ms QRS Dur : 082 ms QT Int : 450 ms P-R-T Axes : 048 034 049 degrees QTc Int : 406 ms Sinus bradycardia Otherwise normal ECG Confirmed by FREDERIC CHERRY, DILSHAD ([id number]), medical transcription editor JAROD BEE ([id number]) on 05/31/2022 6:46:25 AM Referred By: MIAH MORENO Confirmed By:DILSHAD DE LA GARZA MD
[2022-05-30 10:43] LABS: Anion Gap 4 (5-15); BUN 14 mg/dL (7-18); BUN/Creat Ratio 18.1 RATIO (10-20); Calcium,Total 8.8 mg/dL (8.5-10.1); Chloride 102 mmol/L (98-107); Creatinine, Serum 0.77 mg/dL (0.70-1.30); EST Glomerular Filtration Rate 107 mL/min (>60); Est Glom Filt Rate - Afr Amer 130 mL/min (>60); Glucose 70 mg/dL (74-106); Magnesium 2.2 mg/dL (1.6-2.6); Potassium 3.7 mmol/L (3.5-5.1); Sodium Level 139 mmol/L (136-145)
== END | disposition home or self-care (01) ==
PROVIDERS: PCP Family Medicine
DX: I48.0 Paroxysmal atrial fibrillation (principal); Z51.81 Encounter for therapeutic drug level monitoring
CPT/HCPCS: 36415; 80048; 83735; 93005

== ENCOUNTER → 2023-02-26 | Outpatient (CLI) | payer MEDICARE, BC, SELFPAY ==
[2023-02-26 12:26] LABS: Anion Gap 1 (5-15); BUN 15 mg/dL (7-18); BUN/Creat Ratio 19.3 RATIO (10-20); Calcium,Total 8.5 mg/dL (8.5-10.1); Chloride 107 mmol/L (98-107); Creatinine, Serum 0.78 mg/dL (0.70-1.30); EST Glomerular Filtration Rate 107 mL/min (>60); Est Glom Filt Rate - Afr Amer 129 mL/min (>60); Glucose 91 mg/dL (74-106); Magnesium 2.5 mg/dL (1.6-2.6); Potassium 3.8 mmol/L (3.5-5.1); Sodium Level 139 mmol/L (136-145)
== END | disposition home or self-care (01) ==
PROVIDERS: PCP Family Medicine
DX: I48.0 Paroxysmal atrial fibrillation (principal); Z51.81 Encounter for therapeutic drug level monitoring
CPT/HCPCS: 36415; 80048; 83735; 93005

== ENCOUNTER → 2023-07-23 | Outpatient (CLI) | payer MEDICARE, BC, SELFPAY ==
[2023-07-23 12:16] LABS: Prothrombin Time (Protime)PT. 22.7 SECONDS (11.7-14.9)
[2023-07-23 12:38] LABS: Microalbumin,Random Urine 16.5 mg/L (NO RANGE EST.); Microalbumin:Creatinine Ratio 39.2 mg/g CRE (<30 mg/g CRE)
[2023-07-23 12:40] LABS: Cholesterol 209 mg/dL (200); High Density Lipoprotein 49 mg/dL; Triglycerides 72 mg/dL; Very Low Density Lipoprotein 14 mg/dL (5-40)
== END | disposition home or self-care (01) ==
LOC: MFPLAB 10:57
PROVIDERS: PCP Family Medicine; Visit Provider Family Medicine
DX: I48.91 Unspecified atrial fibrillation (principal); I10 Essential (primary) hypertension
CPT/HCPCS: 36415; 80061; 82043; 82570; 85610

== ENCOUNTER → 2023-09-07 | Outpatient (CLI) | payer MEDICARE, BC, SELFPAY ==
--- NOTE | 2023-09-07 11:55 | RAD_ITS ---
STUDY: X-RAY - LUMBOSACRAL SPINE REASON FOR EXAM: Male, 67 years old. low back pain TECHNIQUE: 7 view(s) of the lumbosacral spine were obtained, including lateral projection in neutral, extension and flexion technique. COMPARISON: None FINDINGS: Normal lumbar lordosis. Mild scoliosis with convexity to the left. There is normal alignment of the vertebrae. There is multilevel endplate spondylosis of the lumbar vertebrae. There is multi-level degenerative disc disease with multi-level disc space narrowing. No acute fracture. Normal alignment with no evidence of dynamic instability. No pars defect. 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 Normal visualized soft tissue structures. RAD/L/S Spine Comp/w Bending Views IMPRESSION: Multilevel degenerative disease as described with no acute fracture, spondylolisthesis or pars defect. No evidence of dynamic instability. Electronically Signed: Misty Swan MD at 1:45 EST ,
--- OUTSIDE RECORDS SUMMARY | 2023-09-07 12:23 | XMS RPT_ITS | CCD ---
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 repaired by the residential supervisor. CT scan of the brain identified a left sided subarachnoid hemorrhage (brain bleed) and he was admitted to the neurosurgical ICU for medical monitoring where he remained stable. Repeat CT of the brain was completed 10/27 which demonstrated stable findings. He was started on Keppra for seizure prevention to be completed as a 7 day course. He was then transferred to the regular nursing floor for continued care. Mr. Foster was noted to be on Tikosyn upon admission which was held for one day. Cardiology was therefore consulted and the medication was restarted. EKGs were completed 10/27 and 10/28 and cardiology recommended continuing of Tikosyn. His home coumadin and aspirin were held during admission secondary to his brain injuries. Mr. Foster was evaluated by physical and occupational therapy teams who recommended home at discharge. He was determined medically stable for discharge 10/29/2019: Last head CT 10-27: Hemorrhage: Left-sided subarachnoid hemorrhage, primarily noted within the sylvian fissure, again noted and not significantly changed in volume. Mass Lesion / Mass Effect: There is no evidence of an intracranial mass or extraaxial fluid collection. No significant mass effect. Coumadin restarted by neurology - following with Willa Landeros. I contacted the neuro team by [employer] messaging at that time - felt safe to continue AC. Watchman deferred. IMPRESSION: 66 y/o with longstanding, persistent AF. DCC was attempted 2012 but he realized an early recurrence of AF. No further efforts were pursued at that time. He develops AYALA and fatigue while in AF. He was admitted for Tikoysn loading . He felt markedly improved in NSR but has continued to have breakthrough episodes of AF. We proceeded with PVI 08-01-18: His LA is known to be massively dilated. PVI to help control his AF burden but was not pursued to cure him of the disease. He has not had recurrent AF since the ablation. last TTE : - The left ventricle is normal in size. There is mild concentric left ventricular hypertrophy. Left ventricular systolic function is normal. EF = 55 5% (2D biplane) GLS= -17.1% Normal. - The right ventricle is normal in size. Right ventricular systolic function is normal. - The left atrial cavity is severely dilated. - The visualized aorta is dilated with a maximal dimension of 4.1 cm. - Mild mitral regurgitation. - Mild tricuspid regurgitation. - Exam was compared with the prior OUTSIDE echocardiographic exam performed on 05/30/2018(TARAH). There is no significant change. Last seen . No cardiac events - Feels very well form an AF standpoint. PVCs on EKG - asymptomatic EKG : Today: QTc normal on Tikosyn today In the setting of LAE, persistent AF and slow organized AF at baseline - will continue Tikosyn therapy. PLAN: 1. continue Tikosyn and coumadin - EKG and BMP q3 months while on Tikosyn - being done at [facility]. standing orders placed today 10-16-22. 2. 12 month follow up. 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 update TTE Q 5 years - next due 2025 This note was created with electronic dictation and errors in syntax and meaning may have occurred. Andi Moreno MD Pager: [phone] Office: [phone] I personally examined the patient and repeated the austin components of the exam and cardiac history, past medical and surgical history, social and family history. The assessment and plan were formulated and discussed with the patient and family. I spent over 25 minutes (face time) and greater than 50% of this time was spent counseling and/or coordinating the care of the patient with regard the diagnosis and medical regimen Referring Physician: Carol Ann Roberts MD ([facility]) [address] [place] [address] documented in this encounter [facility] 09-07-2022 Miscellaneous Notes Images from the original note were not included. Call from pharmacy requesting refill. Requested Prescriptions Pending Prescriptions Disp Refills dofetilide (TIKOSYN) 500 mcg capsule [Pharmacy Med Name: Dofetilide 500 MCG Oral Capsule] 180 capsule 0 Sig: Take 1 capsule by mouth twice daily. EKG & BMP are in Epic Patient last seen 07/02 Eli Rodriguez Patient asked to be updated when his script is refilled. TY documented in this encounter [facility] 08-29-2022 Nurse Note EKG completed and reviewed by Milagros Aragon RN. Crystal Bai MA documented in this encounter [facility] 06-07-2022 Miscellaneous Notes Call from patient requesting refill. Requested Prescriptions Pending Prescriptions Disp Refills dofetilide (TIKOSYN) 500 mcg capsule 180 capsule 0 Sig: Take 1 capsule by mouth twice daily. Patient last seen 08/29/2021 LABS: 05/30/2022 EC05/30/2022 Daniel Malone documented in this encounter [facility] 05-22-2022 Miscellaneous Notes Call from pharmacy requesting refill. Requested Prescriptions Pending Prescriptions Disp Refills potassium chloride ER (K-DUR, KLOR-CON) 20 mEq tablet [Pharmacy Med Name: Potassium Chloride May ER 20 MEQ Oral Tablet Extended Release] 90 tablet 3 Sig: Take 1 tablet by mouth once daily. Patient last seen 07/12/20 Eli Rodriguez documented in this encounter [facility] 03-07-2022 Miscellaneous Notes Images from the original note were not included. Call from patient requesting refill. Pending Prescriptions Disp Refills DOFETILIDE 500 MCG CAPSULE 180 capsule 0 Sig: Take 1 capsule by mouth twice daily. PASTORA: No Labs & EKG are in Outside EP. Patient last seen 07/12/20 Eli Rodriguez documented in this encounter [facility] 03-07-2022 Miscellaneous Notes Outside EP Received outside medical records, filed in EP shared drive. Daniel Malone documented in this encounter [facility] 12-07-2021 Miscellaneous Notes Images from the original note were not included. Call from patient requesting refill. Pending Prescriptions Disp Refills DOFETILIDE 500 MCG CAPSULE 180 capsule 0 Sig: Take 1 capsule by mouth twice daily. PASTORA: No Patient last seen 08/29/21 Labs and EKG shown below and scanned into EP [facility] [address]. Neida Quiroz [facility] documented in this encounter [facility] documented in [facility]* Diagnosis Atrial fibrillation, chronic (HCC)- Primary Atrial fibrillation [facility] Diagnosis Atrial fibrillation, persistent (HCC)- Primary Atrial fibrillation [facility]* Diagnosis Atrial fibrillation, persistent (HCC) Atrial fibrillation documented in this [facility] CenterReason for referral (narrative)* Outpatient Procedure (Routine) - Pending Review Specialty Diagnoses / Procedures Referred By Quentin t Referred To Contact [facility] Diagnoses Atrial fibrillation, persistent (HCC) Procedures ECG COMPLETE ECG ROUTINE ECG W/LEAST 12 LDS W/I&R Andi Moreno MD [address] [place] [address] [address] Referral ID Status Reason Start Date Expiration Date Visits Requested Visits Authorized [id number] Pending Review Auto-Generat ed Referral 10/16/2022 10/16/2023 4 4 * Outpatient Procedure (Routine) - Pending Review Specialty Diagnoses / Procedures Referred By Contac t Referred To Contact [facility] Diagnoses Atrial fibrillation, persistent (HCC) Procedures ECG COMPLETE ECG ROUTINE ECG W/LEAST 12 LDS W/I&R Andi Moreno MD [address] [place] [address] [address] Referral ID Status Reason Start Date Expiration Date Visits Requested Visits Authorized [id number] Pending Review Auto-Generat ed Referral 10/13/2022 10/13/2023 1 1 [facility] Summary Purpose Family History No Family History Records FoundNo Family History Records FoundNo Family History Records FoundNo Family History Records Found Advance Directives No Advanced Directives Records FoundDocuments on File Type Date Recorded Patient Long Term Care Pharmacist Expl anation Advance Directive(s) Advance Directive(s) 10/27/2019 8:02 PM Advance Directive(s) 08/01/2018 5:21 AM Advance Directive(s) 05/20/2018 11:40 AM Hospital Course Note HNO ID: [id number] Author: Emory Whittaker ([place]) Service: Trauma Author Type: Physician Disbursing Agent Type: Discharge Summary Filed: 10/29/2019 1:34 PM Note Text: Attestation signed by Tommy Bah at 10/29/2019 4:09 PM Attending Note I discussed with resident. The patient was not examined by the attending. I reviewed the resident's note. I agree with the resident's assessment and plan unless otherwise noted. Signature: Tommy Bah MD Date: 10/29/2019. Time: 4:09 PM DISCHARGE SUMMARY PATIENT NAME: Manuel Foster Code Status: Not on file Highest Readmission Risk Score: 11 The 30 day readmissions risk score is derived from an internally validated risk model which evaluates patient level characteristics, utilization history, medication orders and lab results up until the day of discharge. Patients with a score of 40 or above a (more content not included)... Note HNO ID: [id number] Author: James Bah Service: General Surgery Author Type: Physician Type: Procedures Filed: 10/28/2019 9:05 AM Note Text: mallatBEDSIDE PROCEDURE NOTE WOUND REPAIR Performed by: Jonnie Sanchez MD Authorized by: Tommy Bah Date/Start Time: 10/27/2019 8:51 PM Informed Consent Royal Protocol Sign In Communication: Completed Pre-procedure Details: PPE Used: Sterile gloves The area was prepped with chlorhexidine (Chloroprep) and allowed to dry. A sterile partial body drape was applied following the usual aseptic technique. Medications: Analgesia (see MAR): Fentanyl Local Anesthesia (see MAR): Lidocaine 1% with 1 to 100,000 epi Procedure Details: Number of Wounds: 1 Wound 1 Type: Laceration Location: around L eye. Measurements: Wound Length (cm): 7 Debridement Layer: bone Wound Age (days): <1 Mechanism of Injury: Hit in head with tree branch Irrigation Solution: Normal saline under pressure Foreign Body: No Suture Type: Absorbable Suture Technique: Running Number of (more content not included)... Procedure Findings Note HNO ID: [id number] Author: James Bah Service: General Surgery Author Type: Physician Type: Procedures Filed: 10/28/2019 9:05 AM Note Text: mallatBEDSIDE PROCEDURE NOTE WOUND REPAIR Performed by: Jonnie Sanchez MD Authorized by: Tommy Bah Date/Start Time: 10/27/2019 8:51 PM Informed Consent Royal Protocol Sign In Communication: Completed Pre-procedure Details: PPE Used: Sterile gloves The area was prepped with chlorhexidine (Chloroprep) and allowed to dry. A sterile partial body drape was applied following the usual aseptic technique. Medications: Analgesia (see MAR): Fentanyl Local Anesthesia (see MAR): Lidocaine 1% with 1 to 100,000 epi Procedure Details: Number of Wounds: 1 Wound 1 Type: Laceration Location: around L eye. Measurements: Wound Length (cm): 7 Debridement Layer: bone Wound Age (days): <1 Mechanism of Injury: Hit in head with tree branch Irrigation Solution: Normal saline under pressure Foreign Body: No Suture Type: Absorbable Suture Technique: Running Number of (more content not included)... Additional Source Comments (unrecognized sect ion and content) No Status Records FoundNo Status Records FoundNo Status Records FoundNo Status Records Found INFORMATION SOURCE (unrecogn ized section and content) DATE CREATED AUTHOR AUTHOR'S ORGANIZ ATION 11/20/2019 [facility] DATE CREATED AUTHOR AUTHOR'S ORGANIZ ATION 08/30/2023 [facility] DATE CREATED AUTHOR AUTHOR'S ORGANIZ ATION 09/03/2023 [facility] Source Comments (unrecognize d section and content) In the event this informatio n is protected by the Federal Confidentiality of Alcohol and Drug Abuse Patient Records regulations: The Federal rules restrict any use of the information to criminally investigate or prosecute any alcohol or drug abuse patient.[facility] Center[facility] the event this information is protected by the Federal Confidentiality of Alcohol and Drug Abuse Patient Records regulations: The Federal rules restrict any use of the information to criminally investigate or prosecute any alcohol or drug abuse patient.[facility] CenterIn the event this information is protected by the Federal Confidentiality of Alcohol and Drug Abuse Patient Records regulations: The Federal rules restrict any use of the information to criminally investigate or prosecute any alcohol or drug abuse patient.[facility] CenterIn the event this information is protected by the Federal Confidentiality of Alcohol and Drug Abuse Patient Records regulations: The Federal rules restrict any use of the information to criminally investigate or prosecute any alcohol or drug abuse patient.[facility] CenterIn the event this information is protected by the Federal Confidentiality of Alcohol and Drug Abuse Patient Records regulations: The Federal rules restrict any use of the information to criminally investigate or prosecute any alcohol or drug abuse patient.[facility] CenterIn the event this information is protected by the Federal Confidentiality of Alcohol and Drug Abuse Patient Records regulations: The Federal rules restrict any use of the information to criminally investigate or prosecute any alcohol or drug abuse patient.[facility] CenterIn the event this information is protected by the Federal Confidentiality of Alcohol and Drug Abuse Patient Records regulations: The Federal rules restrict any use of the information to criminally investigate or prosecute any alcohol or drug abuse patient.[facility] CenterIn the event this information is protected by the Federal Confidentiality of Alcohol and Drug Abuse Patient Records regulations: The Federal rules restrict any use of the information to criminally investigate or prosecute any alcohol or drug abuse patient.[facility] CenterIn the event this information is protected by the Federal Confidentiality of Alcohol and Drug Abuse Patient Records regulations: The Federal rules restrict any use of the information to criminally investigate or prosecute any alcohol or drug abuse patient.[facility] CenterIn the event this information is protected by the Federal Confidentiality of Alcohol and Drug Abuse Patient Records regulations: The Federal rules restrict any use of the information to criminally investigate or prosecute any alcohol or drug abuse patient.[facility] CenterIn the event this information is protected by the Federal Confidentiality of Alcohol and Drug Abuse Patient Records regulations: The Federal rules restrict any use of the information to criminally investigate or prosecute any alcohol or drug abuse patient.[facility] CenterIn the event this information is protected by the Federal Confidentiality of Alcohol and Drug Abuse Patient Records regulations: The Federal rules restrict any use of the information to criminally investigate or prosecute any alcohol or drug abuse patient.[facility] CenterIn the event this information is protected by the Federal Confidentiality of Alcohol and Drug Abuse Patient Records regulations: The Federal rules restrict any use of the information to criminally investigate or prosecute any alcohol or drug abuse patient.[facility] CenterIn the event this information is protected by the Federal Confidentiality of Alcohol and Drug Abuse Patient Records regulations: The Federal rules restrict any use of the information to criminally investigate or prosecute any alcohol or drug abuse patient.[facility] CenterIn the event this information is protected by the Federal Confidentiality of Alcohol and Drug Abuse Patient Records regulations: The Federal rules restrict any use of the information to criminally investigate or prosecute any alcohol or drug abuse patient.[facility] CenterIn the event this information is protected by the Federal Confidentiality of Alcohol and Drug Abuse Patient Records regulations: The Federal rules restrict any use of the information to criminally investigate or prosecute any alcohol or drug abuse patient.[facility] Care Teams (unrecognized sec tion and content) Hydroelectric Systems Technician Relationship Specialty Start Date End Date Carol Ann Roberts PCP - General 04/08/07 No, Referring(Hist) 04/25/18 Andi Moreno MD [address] [place] [address] Primary Staff Physician Cardiology 10/29/18 Hydroelectric Systems Technician Relationship Specialty Start Date End Date Carol Ann Roberts PCP - General 04/08/07 No, Referring(Hist) 04/25/18 Andi Moreno MD [address] [place] [address] Primary Staff Physician Cardiology 10/29/18 Hydroelectric Systems Technician Relationship Specialty Start Date End Date Carol Ann Roberts PCP - General 04/08/07 No, Referring(Hist) 04/25/18 Andi Moreno MD [address] [place] [address] Primary Staff Physician Cardiology 10/29/18 Hydroelectric Systems Technician Relationship Specialty Start Date End Date Carol Ann Roberts PCP - General 04/08/07 No, Referring(Hist) 04/25/18 Andi Moreno MD [address] [place] [address] Primary Staff Physician Cardiology 10/29/18 Hydroelectric Systems Technician Relationship Specialty Start Date End Date Carol Ann Roberts PCP - General 04/08/07 No, Referring(Hist) 04/25/18 Andi Moreno MD [address] [place] [address] Primary Staff Physician Cardiology 10/29/18 Hydroelectric Systems Technician Relationship Specialty Start Date End Date Carol Ann Roberts PCP - General 04/08/07 No, Referring(Hist) 04/25/18 Andi Moreno MD [address] [place] [address] Primary Staff Physician Cardiology 10/29/18 Hydroelectric Systems Technician Relationship Specialty Start Date End Date Carol Ann Roberts PCP - General 04/08/07 No, Referring(Hist) 04/25/18 Andi Moreno MD [address] [place] [address] Primary Staff Physician Cardiology 10/29/18 Hydroelectric Systems Technician Relationship Specialty Start Date End Date Carol Ann Roberts PCP - General 04/08/07 No, Referring(Hist) 04/25/18 Andi Moreno MD [address] [place] [id number] Primary Staff Physician Cardiology 10/29/18 Reason for Visit (unrecogniz ed section and content) Specialty Diagnoses / Procedures Referred By Contac t Referred To [facility] Diagnoses Atrial fibrillation, persistent (HCC) Procedures ECG COMPLETE ECG ROUTINE ECG W/LEAST 12 LDS W/I&R Andi Moreno MD [address] [place] [address] [facility] [address] [address] Referral ID Status Reason Start Date Expiration Date Visits Requested Visits Authorized [id number] Authorized Auto-Generat ed Referral 10/16/2022 10/16/2023 4 4 Reason Comments Received Outside Medical Records LABS & EKG Reason Onset Date Comments Refill Request 03/07/2022 Tikosyn Reason Comments Refill Request Reason Onset Date Comments Refill Request 06/07/2022 DOFETILIDE Reason Onset Date Comments Refill Request 09/07/2022 Reason Comments Refill Request Tikosyn Reason Comments Cardiology Follow Up Sob on and off Reason Comments Orders Reason Comments Received Outside Medical Records Labs Reason Onset Date Comments Refill Request 05/11/2023 FOR RECORDS PERTAINING TO PATIENTS WHO ARE OR HAVE BEEN ENROLLED IN A CHEMICAL DEPENDENCY/SUBSTANCEABUSE PROGRAM, SOME INFORMATION MAY BE OMITTED. This clinical summary was aggregated from multiple sources. Caution should be exercised in using it in the provision of clinical care. This summary normalizes information from multiple sources, and as a consequence, information in this document may materially change the coding, format and clinical context of patient data. In addition, data may be omitted in some cases. CLINICAL DECISIONS SHOULD BE BASED ON THE PRIMARY CLINICAL RECORDS. [employer] provides no warranty or guarantee of the accuracy or completeness of information in this document.
== END | disposition home or self-care (01) ==
LOC: MTRAD 11:53
PROVIDERS: PCP Family Medicine; Referring Provider Family Medicine; Visit Provider Family Medicine
DX: M54.50 Low back pain, unspecified (principal)
CPT/HCPCS: 72114

== ENCOUNTER → 2024-01-22 | Outpatient (CLI) | payer MEDICARE, BC, SELFPAY ==
[2024-01-22 12:51] LABS: Protein, Urine (Random) 20.5 mg/dL (<11.9); Protein:Creat Ratio 180 mg/g CRE (0-200)
[2024-01-22 14:08] LABS: Anion Gap 6 (5-15); BUN 18 mg/dL (7-18); BUN/Creat Ratio 22.7 RATIO (10-20); Calcium,Total 9.3 mg/dL (8.5-10.1); Chloride 105 mmol/L (98-107); Cholesterol 232 mg/dL (200); Creatinine, Serum 0.79 mg/dL (0.70-1.30); EST Glomerular Filtration Rate 104 mL/min (>60); Est Glom Filt Rate - Afr Amer 126 mL/min (>60); Glucose 95 mg/dL (74-106); High Density Lipoprotein 49 mg/dL; Potassium 3.9 mmol/L (3.5-5.1); Sodium Level 138 mmol/L (136-145); Thyroid Stim Hormone (TSH) 2.18 uIU/mL (0.358-3.74); Triglycerides 68 mg/dL; Very Low Density Lipoprotein 14 mg/dL (5-40)
== END | disposition home or self-care (01) ==
LOC: MTLAB 09:41
PROVIDERS: PCP Family Medicine; Referring Provider Family Medicine; Visit Provider Family Medicine
DX: I10 Essential (primary) hypertension (principal); I48.91 Unspecified atrial fibrillation
CPT/HCPCS: 80048; 80061; 82570; 84156; 84443

== ENCOUNTER → 2024-07-22 | Outpatient (CLI) | payer MEDICARE, BC, SELFPAY ==
[2024-07-22 13:14] LABS: AST(SGOT) 20 U/L (15-37); Alanine Aminotransfer ALT/SGPT 21 U/L (16-61); Cholesterol 201 mg/dL (200); High Density Lipoprotein 49 mg/dL; Triglycerides 42 mg/dL; Very Low Density Lipoprotein 8 mg/dL (5-40)
== END | disposition home or self-care (01) ==
LOC: MFPLAB 09:52
PROVIDERS: PCP Family Medicine; Visit Provider Family Medicine
DX: E78.00 Pure hypercholesterolemia, unspecified (principal)
CPT/HCPCS: 36415; 80061; 84450; 84460